=== PATIENT | female | born 1950 | race African-American/Black ===

== ENCOUNTER 2016-05-17 03:02 | Inpatient (IN) | payer MEDICAID, OTHER ==
[~2016-05-17] VITALS: Ht 170.2 cm; Wt 105.2 kg
[~2016-05-17 03:02] MED LIST: AMLODIPINE BESYL5 MG ORAL; ANTIVERT25 MG ORAL; ASPIR 8181 MG ORAL; GLUCOPHAGE500 MG ORAL; HYDRALAZINE HCL10 MG ORAL; HYDRALAZINE HCL25 M1 ORAL; LISINOPRIL20 MG ORAL; LISINOPRIL40 MG ORAL; LISINOPRIL5 MG ORAL; TENORMIN25 MG ORAL
--- NOTE | 2016-05-17 03:12 | Emergency Room Report ---
History of Present Illness General Chief Complaint: Abnormal Labs Source: Patient, Medical Record Present Illness HPI This is a 66-year-old female who presents with abnormal labs. Her INR was very high at 12.1 on routine blood check. Patient has no complaint. 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 She denies any bleeding. No bruising. No hematuria. He has no complaint. Allergies: Coded Allergies: NO KNOWN ALLERGIES (Unverified Allergy, Unknown, 03/07/15) Patient History Past Medical History: see triage record, old chart reviewed, HTN Past Surgical History: other Pertinent Family History: none Social History: Denies: smoking Now: No Immunizations: other Reviewed Nursing Documentation: PMH: Agreed, PSxH: Agreed Nursing Documentation-PMH Hx Cardiac Problems: Yes - HEART FAILURE,CARDIOMEGALY,ARRYTHMIA Hx Hypertension: Yes Hx Diabetes: Yes Hx Cancer: No Hx Neurological Problems: No Hx Cerebrovascular Accident: Yes - HEMIPLEGIA AND HEMIPARESIS Review of Systems Eye: Denies: blurred vision, eye pain ENT: Denies: ear pain, nose congestion, throat swelling Respiratory: Denies: cough, shortness of breath Cardiovascular: Denies: chest pain, palpitations Gastrointestinal: Denies: abdominal pain, diarrhea, nausea, vomiting Musculoskeletal: Denies: back pain, joint pain Skin: Denies: rash Neurological: Denies: headache, numbness Endocrine: Denies: increased thirst, increased urine Hematologic/Lymphatic: Denies: easy bruising All Other Systems: negative except mentioned in HPI Physical Exam Vital Signs Date Time Temp Pulse Resp B/P Pulse Ox O2 Delivery O2 Flow Rate FiO2 05/17/16 02:51 98.1 76 16 135/77 91 Room Air vitals normal Sp02 EP Interpretation: reviewed, abnormal General Appearance: well appearing, no apparent distress, alert Head: normocephalic, atraumatic Eyes: bilateral eye EOMI, bilateral eye PERRL ENT: hearing grossly normal, normal pharynx Neck: full range of motion, supple, no meningismus Respiratory: chest non-tender, lungs clear, normal breath sounds Cardiovascular #1: regular rate, rhythm, no murmur Gastrointestinal: normal bowel sounds, non tender, no mass, no organomegaly, no bruit, non-distended Musculoskeletal: back normal, gait/station normal, normal range of motion Psychiatric: mood/affect normal Skin: warm/dry Medical Decision Making Diagnostic Impression: Primary Impression: Abnormal laboratory test result Additional Impressions: 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 No active bleeding. A dose of vitamin K given. Lab Results Impression labs with elevated INR Rhythm Strip Diag. Results EP Interpretation: yes Rate: 80 Rhythm: NSR, no PVC's, no ectopy Chest X-Ray Diagnostic Results EP Interpretation: Yes Findings: no consolidation, no effusion, no pneumothorax, no acute cardiopulmonary disease, other - Cardiomegaly Number of Views: 1 Last Vital Signs Date Time Temp Pulse Resp B/P Pulse Ox O2 Delivery O2 Flow Rate FiO2 05/17/16 02:51 98.1 76 16 135/77 91 Room Air Status: unchanged Disposition: ADMITTED INPATIENT Condition: Serious ADONIS BOOKER M.D. May 17, 2016 03:12
[2016-05-17 03:50] LABS: BASOPHILS % (AUTO) 1.1 % (0.0-2.0); EOSINOPHILS % (AUTO) 0.5 % (0.0-3.0); LYMPHOCYTES % (AUTO) 9.9 % (20.0-45.0); MEAN CORPUSCULAR HEMOGLOBIN 26.6 PG (27.0-31.0); MEAN CORPUSCULAR VOLUME 83 FL (80-99); MEAN PLATELET VOLUME 7.5 FL (6.5-10.1); MONOCYTES % (AUTO) 11.3 % (1.0-10.0); NEUTROPHILS % (AUTO) 77.3 % (45.0-75.0); PLATELET COUNT 300 K/UL (150-450); RED BLOOD COUNT 3.37 M/UL (4.20-5.40); RED CELL DISTRIBUTION WIDTH 15.1 % (11.6-14.8); WHITE BLOOD COUNT 11.8 K/UL (4.8-10.8)
[2016-05-17 04:01] LABS: ANION GAP 13 (5-15); CALCIUM 8.4 mg/dL (8.6-10.2); CARBON DIOXIDE 32 mEQ/L (20-30); CHLORIDE 95 mEQ/L (98-107); CREATININE 0.7 mg/dL (0.5-0.9); GLOMERULAR FILTRATION RATE > 60 mL/min (>60); HEMOLYSIS 54; POTASSIUM 3.4 mEQ/L (3.4-4.9); SODIUM 140 mEQ/L (135-145)
[2016-05-17 04:04] LABS: PARTIAL THROMBOPLASTIN TIME 63 SEC (23-33)
[2016-05-17 04:08] VITALS: BP 130/77
[2016-05-17 04:13] LABS: INR > 15.0 (0.9-1.1); PROTHROMBIN TIME > 150.0 SEC (9.30-11.50)
[2016-05-17] MEDS ORDERED: Phytonadione 10 mg/mL 1ml amp SUBQ ONE (04:45)
[2016-05-17 06:21] VITALS: BP 144/62
[2016-05-17] MEDS ORDERED: HYDRALAZINE HCL10 MG ORAL (06:22)
[2016-05-17] MEDS ORDERED: TRAMADOL HCL50 MG ORAL (06:22)
[2016-05-17] MEDS ORDERED: GLUCAGON EMERGEN1 MG IJ (06:22)
[2016-05-17] MEDS ORDERED: LISINOPRIL20 MG ORAL (06:22)
[2016-05-17] MEDS ORDERED: FUROSEMIDE40 MG ORAL (06:22)
[2016-05-17] MEDS ORDERED: TYLENOL EXTRA500 MG ORAL (06:22)
[2016-05-17] MEDS ORDERED: LANTUS SOL100 UNIT/1 SUBQ (06:22)
[2016-05-17] MEDS ORDERED: LIPITOR40 MG ORAL (06:22)
[2016-05-17] MEDS ORDERED: HUMALOG100 UNIT/4 SUBQ (06:22)
[2016-05-17] MEDS ORDERED: CARVEDILOL25 MG ORAL (06:22)
[2016-05-17] MEDS ORDERED: MULTIVITAMINS1 EAC2 ORAL (06:22)
[2016-05-17] MEDS ORDERED: LORazepam Inj 2mg/ml 1ml IV PRN (07:00)
[2016-05-17] MEDS ORDERED: Mylanta II UD 30ml ORAL PRN (07:00)
[2016-05-17 07:15] VITALS: BP 147/62
[2016-05-17] MEDS: Furosemide 40mg tab ORAL SCH ×2 (09:44→19:16)
[2016-05-17] MEDS: Lisinopril 20mg tab ORAL SCH (09:44)
--- NOTE | 2016-05-17 11:19 | Diagnostic Imaging Report ---
Indication: SOB Technique: One view of the chest Comparison: 03/07/2015 Findings: The heart is enlarged, apparently more so than on the prior study. There is equivocal borderline interstitial congestive change, not evident previously. The pleural spaces are clear. No focal airspace disease Impression: Cardiomegaly, increased from 1220 1350 Equivocal mild interstitial congestion. Correlate with clinical findings
[2016-05-17 12:04] LABS: PROTHROMBIN TIME 73.9 SEC (9.30-11.50)
[2016-05-17 12:49] LABS: INR 6.8 (0.9-1.1)
[2016-05-17 13:08] LABS: ERYTHROCYTE SEDIMENTATION RATE 74 MM/HR (0-30); RETICULOCYTE COUNT 2.6 % (0.0-2.0)
[2016-05-17 13:11] LABS: ANISOCYTOSIS 1+; BAND NEUTROPHILS % (MANUAL) 0 % (0-8); BASOPHILS % (MANUAL) 0 % (0-2); EOSINOPHILS % (MANUAL) 1 % (0-3); HYPOCHROMASIA 1+; LYMPHOCYTES % (MANUAL) 9 % (20-45); NEUTROPHILS % (MANUAL) 78 % (45-75); NUCLEATED RED BLOOD CELLS 1 /100 WBC; PLATELET ESTIMATE ADEQUATE; PLATELET MORPHOLOGY NORMAL; TOTAL CELLS COUNTED 100
[2016-05-17 13:14] LABS: PATH BLOOD SMEAR/OMC SENT TO PATHOLOGIST
[2016-05-17] MEDS: NovoLOG Insulin Flexpen SUBQ SCH ×3 (13:20→22:39)
[2016-05-17] MEDS: HydrALAZINE 10mg Tab ORAL SCH ×2 (13:21→18:00)
[2016-05-17 13:30] VITALS: BP 132/61
[2016-05-17 16:49] VITALS: BP 102/48
--- NOTE | 2016-05-17 16:58 | Consultation ---
History of Present Illness General Date patient seen: May 17, 2016 Chief Complaint: Abnormal Labs Referring physician: Dr. Campos Reason for Consultation: Inpatient management Present Illness HPI 66-year-old female with Hx of CVA, DM, HTN, diabetic foot ulcer, on Coumadin for ventricular thrombus, brought in to ER for evaluation of INR> 10. Patient has no complaint. She has multple wounds on lower extremities which are getting worse. Allergies: Coded Allergies: NO KNOWN ALLERGIES (Unverified Allergy, Unknown, 03/07/15) Medication History Scheduled Amlodipine Besylate* (Amlodipine Besylate*), 5 MG ORAL DAILY Aspirin* (Aspir 81*), 81 MG ORAL DAILY, (Reported) Atorvastatin Calcium* (Lipitor*), 40 MG ORAL BEDTIME, (Reported) Carvedilol* (Carvedilol*), 50 MG ORAL EVERY 12 HOURS, (Reported) Furosemide* (Lasix*), 40 MG ORAL TWICE A DAY, (Reported) Hydralazine Hcl* (Hydralazine Hcl*), 10 MG ORAL EVERY 6 HOURS, (Reported) Insulin Glargine (Lantus), 20 SUBQ BEDTIME, (Reported) Lisinopril (Lisinopril*), 20 MG ORAL DAILY, (Reported) Lisinopril* (Lisinopril*), 40 MG ORAL DAILY Meclizine Hcl* (Antivert*), 50 MG ORAL BID Metformin Hcl* (Glucophage*), 500 MG ORAL BID Multivitamins* (Multivitamins*), 1 TAB ORAL DAILY, (Reported) Scheduled PRN Acetaminophen* (Tylenol Extra Strength*), 500 MG ORAL Q6H PRN for Mild Pain/ Temp > 100.5, (Reported) Hydralazine Hcl* (Hydralazine Hcl*), 25 MG ORAL BID PRN Tramadol Hcl* (Ultram*), 50 MG ORAL Q6H PRN for For Pain, (Reported) Miscellaneous Medications Glucagon,Human Recombinant (Glucagon Emergency Kit), 1 MG IJ, (Reported) Insulin Lispro (Humalog), 0 SUBQ, (Reported) Patient History Healthcare decision maker Resuscitation status Advanced Directive on File Past Medical/Surgical History Past Medical/Surgical History: (1) HTN (hypertension) (2) Anemia, chronic disease (3) DM (diabetes mellitus) Review of Systems All Other Systems: negative except mentioned in HPI Physical Exam General Appearance: WD/WN Lines, tubes and drains: peripheral HEENT: normocephalic, atraumatic Respiratory/Chest: chest wall non-tender, lungs clear Cardiovascular/Chest: normal peripheral pulses, normal rate Abdomen: normal bowel sounds Genitourinary/Rectal: normal genital exam Last 24 Hour Vital Signs Date Time Temp Pulse Resp B/P Pulse Ox O2 Delivery O2 Flow Rate FiO2 05/17/16 13:30 97.7 65 18 132/61 97 Room Air 05/17/16 13:21 132/61 05/17/16 09:58 66 14 156/80 100 Room Air 05/17/16 09:44 156/80 05/17/16 09:44 71 156/80 05/17/16 07:15 98.0 64 13 147/62 99 Room Air 05/17/16 07:15 64 13 Room Air 05/17/16 06:21 98.1 92 16 144/62 96 Room Air 05/17/16 04:08 98.1 88 16 130/77 91 Room Air 05/17/16 02:51 98.1 76 16 135/77 91 Room Air Intake and Output 05/16/16 05/17/16 19:00 07:00 Output Total 0 ml Balance 0 ml Output Urine Total 0 ml Laboratory Tests Test 05/17/16 03:35 05/17/16 11:00 White Blood Count 11.8 K/UL (4.8-10.8) H Red Blood Count 3.37 M/UL (4.20-5.40) L Hemoglobin 9.0 G/DL (12.0-16.0) L Hematocrit 28.0 % (37.0-47.0) L Mean Corpuscular Volume 83 FL (80-99) Mean Corpuscular Hemoglobin 26.6 PG (27.0-31.0) L Mean Corpuscular Hemoglobin Concent 32.0 G/DL (32.0-36.0) Red Cell Distribution Width 15.1 % (11.6-14.8) H Platelet Count 300 K/UL (150-450) Mean Platelet Volume 7.5 FL (6.5-10.1) Neutrophils (%) (Auto) 77.3 % (45.0-75.0) H Lymphocytes (%) (Auto) 9.9 % (20.0-45.0) L Monocytes (%) (Auto) 11.3 % (1.0-10.0) H Eosinophils (%) (Auto) 0.5 % (0.0-3.0) Basophils (%) (Auto) 1.1 % (0.0-2.0) Differential Total Cells Counted 100 Neutrophils % (Manual) 78 % (45-75) H Lymphocytes % (Manual) 9 % (20-45) L Monocytes % (Manual) 12 % (1-10) H Eosinophils % (Manual) 1 % (0-3) Basophils % (Manual) 0 % (0-2) Band Neutrophils 0 % (0-8) Nucleated Red Blood Cells 1 /100 WBC Platelet Estimate Adequate Platelet Morphology Normal Hypochromasia 1+ Anisocytosis 1+ Prothrombin Time > 150.0 SEC (9.30-11.50) H 73.9 SEC (9.30-11.50) H Prothromb Time International Ratio > 15.0 (0.9-1.1) *H 6.8 (0.9-1.1) *H Activated Partial Thromboplast Time 63 SEC (23-33) H 60 SEC (23-33) H Sodium Level 140 mEQ/L (135-145) Potassium Level 3.4 mEQ/L (3.4-4.9) Chloride Level 95 mEQ/L (98-107) L Carbon Dioxide Level 32 mEQ/L (20-30) H Anion Gap 13 (5-15) Blood Urea Nitrogen 17 mg/dL (7-23) Creatinine 0.7 mg/dL (0.5-0.9) Estimat Glomerular Filtration Rate > 60 mL/min (>60) Glucose Level 165 mg/dL (74-106) H Calcium Level 8.4 mg/dL (8.6-10.2) L Erythrocyte Sedimentation Rate 74 MM/HR (0-30) H Reticulocyte Count 2.6 % (0.0-2.0) H Iron Level 30 ug/dL (37-145) L Total Iron Binding Capacity 225 ug/dL (250-400) L Percent Iron Saturation 13 % (15-50) L Unsaturated Iron Binding 195 ug/dL (112-346) Lactate Dehydrogenase 248 U/L (135-230) H Carcinoembryonic Antigen 1.9 ng/mL Vitamin B12 Level 251 pg/mL (211-946) Folate Pending Height (Feet): 5 Height (Inches): 7.00 Weight (Pounds): 230 Medications Current Medications Medications (Trade) Dose Ordered Sig/Anh Route PRN Reason Start Time Stop Time Status Last Admin Dose Admin Acetaminophen (Tylenol) 650 mg Q4H PRN ORAL T>100.5 05/17/16 07:00 06/16/16 06:59 Al Hydroxide/Mg Hydroxide (Mylanta II) 30 ml Q6H PRN ORAL dyspepsia 05/17/16 07:00 06/16/16 06:59 Amlodipine Besylate (Norvasc) 5 mg DAILY ORAL 05/17/16 09:00 06/16/16 08:59 05/17/16 09:44 Atorvastatin Calcium (Lipitor) 40 mg BEDTIME ORAL 05/17/16 21:00 06/16/16 20:59 Carvedilol (Coreg) 50 mg EVERY 12 HOURS ORAL 05/17/16 09:00 06/16/16 08:59 UNV Dextrose (Dextrose 50%) STAT PRN IV Hypoglycemia 05/17/16 07:00 06/16/16 06:59 Furosemide (Lasix) 40 mg TWICE A DAY ORAL 05/17/16 09:00 06/16/16 08:59 05/17/16 09:44 Hydralazine HCl (Apresoline) 10 mg EVERY 6 HOURS ORAL 05/17/16 12:00 06/16/16 11:59 05/17/16 13:21 Insulin Aspart (NovoLOG) BEFORE MEALS AND HS SUBQ 05/17/16 11:30 06/16/16 11:29 05/17/16 13:20 Lisinopril (Prinivil) 20 mg DAILY ORAL 05/17/16 09:00 06/16/16 08:59 05/17/16 09:44 Lorazepam (Ativan 2mg/ml 1ml) 0.5 mg Q4H PRN IV For Anxiety 05/17/16 07:00 05/24/16 06:59 Morphine Sulfate (Morphine Sulfate) 1 mg Q4H PRN IVP PAIN 4-10 05/17/16 07:00 05/24/16 06:59 Ondansetron HCl (Zofran) 4 mg Q6H PRN IVP Nausea & Vomiting 05/17/16 07:00 06/16/16 06:59 Polyethylene Glycol (Miralax) 17 gm HSPRN PRN ORAL Constipation 05/17/16 21:00 06/16/16 20:59 Zolpidem Tartrate (Ambien) 5 mg HSPRN PRN ORAL Insomnia 05/17/16 21:00 06/16/16 20:59 Assessment/Plan Problem List: (1) Coagulopathy ICD Codes: D68.9 - Coagulation defect, unspecified SNOMED: 91595199 (2) Diabetic foot ulcer ICD Codes: E11.621 - Type 2 diabetes mellitus with foot ulcer; L97.509 - Non- pressure chronic ulcer of other part of unspecified foot with unspecified severity SNOMED: 019934940 (3) Ventricular mural thrombus SNOMED: 33366296 (4) HTN (hypertension) ICD Codes: I10 - Essential (primary) hypertension SNOMED: 11939399 (5) DM (diabetes mellitus) ICD Codes: E11.9 - Type 2 diabetes mellitus without complications SNOMED: 44028844 (6) Anemia, chronic disease ICD Codes: D63.8 - Anemia in other chronic diseases classified elsewhere; T45.515A - Adverse effect of anticoagulants, initial encounter SNOMED: 275400977, 806199098 Assessment/Plan Vitamin K+ FFP check INR wound care podiatry sliding scale diabetic diet check cultures AMARIS POWERS May 17, 2016 16:58
[2016-05-17 20:00] VITALS: BP 135/70
[2016-05-17] MEDS ORDERED: Zolpidem 5mg tab ORAL PRN (21:00)
[2016-05-17] MEDS ORDERED: Miralax 17gm pkt ORAL PRN (21:00)
[2016-05-17] MEDS: Carvedilol 25mg Tab ORAL SCH (22:38)
--- NOTE | 2016-05-17 22:51 | General Progress Note ---
Assessment/Plan Assessment/Plan GI Consult Dictated EGD/Colon Monday am, if sable and INR corrected Thank you Rolando Lane MD Subjective Allergies: Coded Allergies: NO KNOWN ALLERGIES (Unverified Allergy, Unknown, 03/07/15) Objective Last 24 Hour Vital Signs Date Time Temp Pulse Resp B/P Pulse Ox O2 Delivery O2 Flow Rate FiO2 05/17/16 22:38 77 135/70 05/17/16 18:00 102/48 05/17/16 16:49 98.1 81 102/48 95 Room Air 05/17/16 13:30 97.7 65 18 132/61 97 Room Air 05/17/16 13:21 132/61 05/17/16 09:58 66 14 156/80 100 Room Air 05/17/16 09:44 156/80 05/17/16 09:44 71 156/80 05/17/16 07:15 98.0 64 13 147/62 99 Room Air 05/17/16 07:15 64 13 Room Air 05/17/16 06:21 98.1 92 16 144/62 96 Room Air 05/17/16 04:08 98.1 88 16 130/77 91 Room Air 05/17/16 02:51 98.1 76 16 135/77 91 Room Air Intake and Output 05/16/16 05/17/16 19:00 07:00 Output Total 0 ml Balance 0 ml Output Urine Total 0 ml Laboratory Tests 05/17/16 03:35: White Blood Count 11.8H, Red Blood Count 3.37L, Hemoglobin 9.0L, Hematocrit 28.0L, Mean Corpuscular Volume 83, Mean Corpuscular Hemoglobin 26.6L, Mean Corpuscular Hemoglobin Concent 32.0, Red Cell Distribution Width 15.1H, Platelet Count 300, Mean Platelet Volume 7.5, Neutrophils (%) (Auto) 77.3H, Lymphocytes (%) (Auto) 9.9L, Monocytes (%) (Auto) 11.3H, Eosinophils (%) (Auto) 0.5, Basophils (%) (Auto) 1.1, Differential Total Cells Counted 100, Neutrophils % (Manual) 78H, Lymphocytes % (Manual) 9L, Monocytes % (Manual) 12H , Eosinophils % (Manual) 1, Basophils % (Manual) 0, Band Neutrophils 0, Nucleated Red Blood Cells 1, Platelet Estimate Adequate, Platelet Morphology Normal, Hypochromasia 1+, Anisocytosis 1+, Prothrombin Time > 150.0H, Prothromb Time International Ratio > 15.0*H, Activated Partial Thromboplast Time 63H, Sodium Level 140, Potassium Level 3.4, Chloride Level 95L, Carbon Dioxide Level 32H, Anion Gap 13, Blood Urea Nitrogen 17, Creatinine 0.7, Estimat Glomerular Filtration Rate > 60, Glucose Level 165H, Calcium Level 8.4L 05/17/16 11:00: Prothrombin Time 73.9H, Prothromb Time International Ratio 6.8*H, Activated Partial Thromboplast Time 60H, Erythrocyte Sedimentation Rate 74H, Reticulocyte Count 2.6H, Iron Level 30L, Total Iron Binding Capacity 225L, Percent Iron Saturation 13L, Unsaturated Iron Binding 195, Lactate Dehydrogenase 248H, Carcinoembryonic Antigen 1.9, Vitamin B12 Level 251, Folate [Pending] Height (Feet): 5 Height (Inches): 7.00 Weight (Pounds): [address] May 17, 2016 22:51
[2016-05-17] MEDS: Sorbitol Solution UD 30ml ORAL ONE (23:00)
--- NOTE | 2016-05-17 23:18 | History and Physical Report ---
DATE OF ADMISSION: 05/17/2016 HISTORY OF PRESENT ILLNESS: The patient is admitted for elevated INR. Vitamin K was given. The patient was on Coumadin. We will reverse the INR and we will send the patient back to the facility. Had no complaint. No bleeding and no bruising and no hematuria. No bleeding whatsoever. PAST MEDICAL HISTORY: Significant for hypertension, heart failure, cardiomegaly, arrhythmia, diabetes, degenerative joint disease, history of ventricular tachycardia, on Coumadin, and history of anemia on chronic disease. PAST SURGICAL HISTORY: Denies. ALLERGIES: Denies. MEDICATIONS: 1. NovoLog. 2. Aspirin. 3. Lipitor. 4. Coreg. 5. Furosemide. 6. Hydralazine. 7. Insulin. 8. Lisinopril. 9. Metformin. 10. . 11. Coumadin. FAMILY HISTORY: Noncontributory. SOCIAL HISTORY: Denies alcohol or drugs. REVIEW OF SYSTEMS: HEENT: Denies headache. Respiratory: Denies shortness of breath. Denies cough. Cardiovascular: Denies chest pain. Gastrointestinal: Denies any rectal bleeding. Denies bruising. Denies any significant pain. PHYSICAL EXAMINATION: VITAL SIGNS: Temperature is 97 degrees, pulse is 73, and blood pressure 135/77. HEENT: PERRLA. NECK: Supple. No lymphadenopathy. CHEST: Clear to auscultation. GASTROINTESTINAL: Soft, nontender, and nondistended. No organomegaly. EXTREMITIES: No edema. No ecchymosis. No bleeding. Reflexes are equal on both sides. Able to move all four extremities. LABORATORY DATA: White blood cells of 11.8, hemoglobin of 9 and platelets 300,000. Sodium 140, potassium 3.5, BUN of 17, creatinine 0.7 and glucose of 167. INR greater than 15. PT PTT 63. ASSESSMENT AND PLAN: Coagulopathy, on Coumadin. No bleeding or bruises. The patient did not have any adverse effects at this point. I have consulted Dr. Sosa and Dr. Fuentes and Dr. Lane for the above-mentioned diagnosis and treatment. Vitamin K was given already to reverse the coagulopathy and further medication will be ordered. Ali Hadadz, M.D. DR: FRED JOB#: [id number] CC:
[2016-05-18] VITALS: BP 139/52
[2016-05-18] MEDS: Sorbitol Solution UD 30ml ORAL ONE (01:22)
[2016-05-18] MEDS: HydrALAZINE 10mg Tab ORAL SCH ×5 (01:22→19:02)
[2016-05-18 04:00] VITALS: BP 128/55
[2016-05-18 04:19] LABS: EOSINOPHILS % (AUTO) 1.2 % (0.0-3.0); LYMPHOCYTES % (AUTO) 11.4 % (20.0-45.0); MEAN CORPUSCULAR HEMOGLOBIN 26.8 PG (27.0-31.0); MEAN CORPUSCULAR HGB CONC 31.7 G/DL (32.0-36.0); MEAN CORPUSCULAR VOLUME 84 FL (80-99); MEAN PLATELET VOLUME 6.7 FL (6.5-10.1); MONOCYTES % (AUTO) 8.9 % (1.0-10.0); NEUTROPHILS % (AUTO) 77.6 % (45.0-75.0); PLATELET COUNT 318 K/UL (150-450); RED BLOOD COUNT 3.24 M/UL (4.20-5.40); RED CELL DISTRIBUTION WIDTH 14.8 % (11.6-14.8); WHITE BLOOD COUNT 12.8 K/UL (4.8-10.8)
[2016-05-18 04:28] LABS: INR 2.2 (0.9-1.1)
[2016-05-18] MEDS: NovoLOG Insulin Flexpen SUBQ SCH ×4 (06:30→21:56)
[2016-05-18 07:13] LABS: ALANINE AMINOTRANSFERASE 16 U/L (3-33); ALBUMIN/GLOBULIN RATIO 0.5 (1.0-2.7); ANION GAP 9 (5-15); ASPARTATE AMINO TRANSFERASE 27 U/L (5-40); CALCIUM 8.7 mg/dL (8.6-10.2); CARBON DIOXIDE 36 mEQ/L (20-30); CHLORIDE 95 mEQ/L (98-107); CREATININE 0.7 mg/dL (0.5-0.9); GLOMERULAR FILTRATION RATE > 60 mL/min (>60); HEMOLYSIS 1; POTASSIUM 2.8 mEQ/L (3.4-4.9); SODIUM 140 mEQ/L (135-145); TOTAL PROTEIN 6.1 g/dL (6.6-8.7)
[2016-05-18 07:26] LABS: BILIRUBIN,DIRECT 0.6 mg/dL (0.1-0.3)
[2016-05-18] MEDS ORDERED: Bisacodyl EC 5mg tab ORAL ONE ×2 (07:45→16:00)
[2016-05-18 08:00] VITALS: BP 147/69
[2016-05-18] MEDS ORDERED: Nulytely 4L ORAL ONE (09:00)
--- NOTE | 2016-05-18 09:40 | Diagnostic Imaging Report ---
APPROVED REPORT CPT Code: 29524 Present Symptoms Comments: Pain Technically difficult study due to vessel depth (mid-thigh) and calf area ( bandages at distal calf). BILATERAL: Imaging reveals a patent deep venous system bilaterally. There is no evidence of thrombus within the femoral, popliteal or tibial segments. The greater saphenous veins are also within normal limits. Doppler indicates normal spontaneous flow within these segments. Note: Technically difficult study due to vessel depth (mid-thigh and calf area).
[2016-05-18] MEDS: Carvedilol 25mg Tab ORAL SCH ×2 (09:47→21:23)
[2016-05-18] MEDS: Lisinopril 20mg tab ORAL SCH (09:50)
--- NOTE | 2016-05-18 10:24 | General Progress Note ---
Assessment/Plan Problem List: (1) Dizziness ICD Codes: R42 - Dizziness and giddiness SNOMED: 083603808 (2) HTN (hypertension) ICD Codes: I10 - Essential (primary) hypertension SNOMED: 55373345 (3) DM (diabetes mellitus) ICD Codes: E11.9 - Type 2 diabetes mellitus without complications SNOMED: 04207096 (4) Anemia, chronic disease ICD Codes: D63.8 - Anemia in other chronic diseases classified elsewhere; T45.515A - Adverse effect of anticoagulants, initial encounter SNOMED: 030134633, 118148982 (5) Coagulopathy ICD Codes: D68.9 - Coagulation defect, unspecified SNOMED: 95384904 (6) V-tach ICD Codes: I47.2 - Ventricular tachycardia SNOMED: 48064181 (7) Ventricular mural thrombus SNOMED: 72582256 Status: progressing Assessment/Plan coagulapathy afebrile vitals stable will discuss w gi the plan on care and w podiatry and hem/onc coumadin per heme/onc Subjective ROS Limited/Unobtainable: Yes Constitutional: Reports: no symptoms Allergies: Coded Allergies: NO KNOWN ALLERGIES (Unverified Allergy, Unknown, 03/07/15) Objective Last 24 Hour Vital Signs Date Time Temp Pulse Resp B/P Pulse Ox O2 Delivery O2 Flow Rate FiO2 05/18/16 09:50 140/77 05/18/16 09:49 64 140/77 05/18/16 09:47 64 140/77 05/18/16 08:00 97.5 66 20 147/69 95 Room Air 05/18/16 06:00 139/52 05/18/16 04:00 97.9 60 18 128/55 98 Room Air 05/18/16 00:00 98.1 66 20 139/52 97 Room Air 05/18/16 00:00 139/52 05/17/16 22:38 77 135/70 05/17/16 20:00 98.1 72 18 135/70 92 Room Air 05/17/16 18:00 102/48 05/17/16 16:49 98.1 81 102/48 95 Room Air 05/17/16 13:30 97.7 65 18 132/61 97 Room Air 05/17/16 13:21 132/61 Intake and Output 05/17/16 05/18/16 19:00 07:00 Intake Total 480 ml 240 ml Balance 480 ml 240 ml Intake Oral 480 ml 240 ml # Voids 2 1 Laboratory Tests 05/17/16 11:00: Erythrocyte Sedimentation Rate 74H, Reticulocyte Count 2.6H, Prothrombin Time 73.9H, Prothromb Time International Ratio 6.8*H, Activated Partial Thromboplast Time 60H, Iron Level 30L, Total Iron Binding Capacity 225L, Percent Iron Saturation 13L, Unsaturated Iron Binding 195, Lactate Dehydrogenase 248H, Carcinoembryonic Antigen 1.9, Vitamin B12 Level 251, Folate [Pending] 05/18/16 04:00: Prothrombin Time 23.0H, Prothromb Time International Ratio 2.2H, White Blood Count 12.8H, Red Blood Count 3.24L, Hemoglobin 8.7L, Hematocrit 27.3L, Mean Corpuscular Volume 84, Mean Corpuscular Hemoglobin 26.8L, Mean Corpuscular Hemoglobin Concent 31.7L, Red Cell Distribution Width 14.8, Platelet Count 318, Mean Platelet Volume 6.7, Neutrophils (%) (Auto) 77.6H, Lymphocytes (%) (Auto) 11.4L, Monocytes (%) (Auto) 8.9, Eosinophils (%) (Auto) 1.2, Basophils (%) (Auto ) 1.0, Sodium Level 140, Potassium Level 2.8L, Chloride Level 95L, Carbon Dioxide Level 36H, Anion Gap 9, Blood Urea Nitrogen 17, Creatinine 0.7, Estimat Glomerular Filtration Rate > 60, Glucose Level 144H, Calcium Level 8.7, Total Bilirubin 1.5H, Direct Bilirubin 0.6H, Aspartate Amino Transf (AST/SGOT) 27, Alanine Aminotransferase (ALT/SGPT) 16, Alkaline Phosphatase 114H, Total Protein 6.1L, Albumin 2.2L, Globulin 3.9, Albumin/Globulin Ratio 0.5L, Thyroid Stimulating Hormone (TSH) 1.670 Height (Feet): 5 Height (Inches): 7.00 Weight (Pounds): 230 General Appearance: confused EENT: PERRL/EOMI Neck: supple Cardiovascular: normal rate Respiratory/Chest: lungs clear Abdomen: soft Brittny Campos MD May 18, 2016 10:24
[2016-05-18 12:00] VITALS: BP_SYST 135; BP_SYST 89; BP_DIAS 54; BP_DIAS 92
[2016-05-18] MEDS ORDERED: Fleet's Enema 133ml RECTAL ONE (14:00)
[2016-05-18] MEDS: Furosemide 40mg tab ORAL SCH ×2 (14:08→19:02)
[2016-05-18] MEDS: Morphine Sulfate 2mg/ml Inj IVP PRN ×2 (14:25→21:22)
--- NOTE | 2016-05-18 15:00 | Infectious Diseases Prog Note ---
Assessment/Plan Problems: (1) Toe gangrene Assessment & Plan: will send blood culture to rule out bacteremia, and start vancomycin, cefepime and flagyl empirically, recommend financial analysis consultant eval for possible amputation. (2) Open wound of both legs with complication Assessment & Plan: continue local wound care as per wound care service, and off loading , she will be started on wide spectrum antibiotics (3) Sepsis Assessment & Plan: due to the above, will start vancomycin, cefepime and metronidazol, and send blood culture (4) Coagulopathy Assessment & Plan: due to comuadin, improving, monitor INR (5) DM (diabetes mellitus) Assessment & Plan: recommend tight glycemic control to keep blood glucose between 80-120 Subjective Allergies: Coded Allergies: NO KNOWN ALLERGIES (Unverified Allergy, Unknown, 03/07/15) Objective Vital Signs Last 24 Hour Vital Signs Date Time Temp Pulse Resp B/P Pulse Ox O2 Delivery O2 Flow Rate FiO2 05/18/16 12:29 135/92 05/18/16 12:00 97.6 66 18 135/92 93 Room Air 05/18/16 09:50 140/77 05/18/16 09:49 64 140/77 05/18/16 09:47 64 140/77 05/18/16 08:00 97.5 66 20 147/69 95 Room Air 05/18/16 06:00 139/52 05/18/16 04:00 97.9 60 18 128/55 98 Room Air 05/18/16 00:00 98.1 66 20 139/52 97 Room Air 05/18/16 00:00 139/52 05/17/16 22:38 77 135/70 05/17/16 20:00 98.1 72 18 135/70 92 Room Air 05/17/16 18:00 102/48 05/17/16 16:49 98.1 81 102/48 95 Room Air Height (Feet): 5 Height (Inches): 7.00 Weight (Pounds): 230 Laboratory Tests Test 05/18/16 04:00 White Blood Count 12.8 K/UL (4.8-10.8) H Red Blood Count 3.24 M/UL (4.20-5.40) L Hemoglobin 8.7 G/DL (12.0-16.0) L Hematocrit 27.3 % (37.0-47.0) L Mean Corpuscular Volume 84 FL (80-99) Mean Corpuscular Hemoglobin 26.8 PG (27.0-31.0) L Mean Corpuscular Hemoglobin Concent 31.7 G/DL (32.0-36.0) L Red Cell Distribution Width 14.8 % (11.6-14.8) Platelet Count 318 K/UL (150-450) Mean Platelet Volume 6.7 FL (6.5-10.1) Neutrophils (%) (Auto) 77.6 % (45.0-75.0) H Lymphocytes (%) (Auto) 11.4 % (20.0-45.0) L Monocytes (%) (Auto) 8.9 % (1.0-10.0) Eosinophils (%) (Auto) 1.2 % (0.0-3.0) Basophils (%) (Auto) 1.0 % (0.0-2.0) Prothrombin Time 23.0 SEC (9.30-11.50) H Prothromb Time International Ratio 2.2 (0.9-1.1) H Sodium Level 140 mEQ/L (135-145) Potassium Level 2.8 mEQ/L (3.4-4.9) L Chloride Level 95 mEQ/L (98-107) L Carbon Dioxide Level 36 mEQ/L (20-30) H Anion Gap 9 (5-15) Blood Urea Nitrogen 17 mg/dL (7-23) Creatinine 0.7 mg/dL (0.5-0.9) Estimat Glomerular Filtration Rate > 60 mL/min (>60) Glucose Level 144 mg/dL (74-106) H Calcium Level 8.7 mg/dL (8.6-10.2) Total Bilirubin 1.5 mg/dL (0.0-1.2) H Direct Bilirubin 0.6 mg/dL (0.1-0.3) H Aspartate Amino Transf (AST/SGOT) 27 U/L (5-40) Alanine Aminotransferase (ALT/SGPT) 16 U/L (3-33) Alkaline Phosphatase 114 U/L (35-104) H Total Protein 6.1 g/dL (6.6-8.7) L Albumin 2.2 g/dL (3.5-5.2) L Globulin 3.9 g/dL Albumin/Globulin Ratio 0.5 (1.0-2.7) L Thyroid Stimulating Hormone (TSH) 1.670 uIU/mL (0.300-4.500) Current Medications Medications (Trade) Dose Ordered Sig/Anh Route PRN Reason Start Time Stop Time Status Last Admin Dose Admin Acetaminophen (Tylenol) 650 mg Q4H PRN ORAL T>100.5 05/17/16 07:00 06/16/16 06:59 Al Hydroxide/Mg Hydroxide (Mylanta II) 30 ml Q6H PRN ORAL dyspepsia 05/17/16 07:00 06/16/16 06:59 Amlodipine Besylate (Norvasc) 5 mg DAILY ORAL 05/17/16 09:00 06/16/16 08:59 05/18/16 09:49 Atorvastatin Calcium (Lipitor) 40 mg BEDTIME ORAL 05/17/16 21:00 06/16/16 20:59 05/17/16 22:35 Bisacodyl (Dulcolax) 20 mg ONCE ONCE ORAL 05/18/16 16:00 05/18/16 16:01 Carvedilol (Coreg) 50 mg EVERY 12 HOURS ORAL 05/17/16 21:00 06/16/16 20:59 05/18/16 09:47 Cefepime HCl/ Dextrose (Maxipime/D5W) 55 ml @ 110 mls/hr EVERY 12 HOURS IVPB 05/18/16 18:00 05/25/16 17:59 Dextrose (Dextrose 50%) STAT PRN IV Hypoglycemia 05/17/16 07:00 06/16/16 06:59 Furosemide (Lasix) 40 mg TWICE A DAY ORAL 05/17/16 09:00 06/16/16 08:59 05/18/16 14:08 Hydralazine HCl (Apresoline) 10 mg EVERY 6 HOURS ORAL 05/17/16 12:00 06/16/16 11:59 05/18/16 12:29 Insulin Aspart (NovoLOG) BEFORE MEALS AND HS SUBQ 05/17/16 11:30 06/16/16 11:29 05/18/16 12:26 Lisinopril (Prinivil) 20 mg DAILY ORAL 05/17/16 09:00 06/16/16 08:59 05/18/16 09:50 Lorazepam (Ativan 2mg/ml 1ml) 0.5 mg Q4H PRN IV For Anxiety 05/17/16 07:00 05/24/16 06:59 Metronidazole (Flagyl) 500 mg Q8HR ORAL 05/18/16 19:00 05/25/16 18:59 Morphine Sulfate (Morphine Sulfate) 1 mg Q4H PRN IVP PAIN 4-10 05/17/16 07:00 05/24/16 06:59 05/18/16 14:25 Ondansetron HCl (Zofran) 4 mg Q6H PRN IVP Nausea & Vomiting 05/17/16 07:00 06/16/16 06:59 Polyethylene Glycol (Miralax) 17 gm HSPRN PRN ORAL Constipation 05/17/16 21:00 06/16/16 20:59 Potassium Chloride 20 meq 20 meq ONCE ONCE ORAL 05/18/16 20:00 05/18/16 20:01 Vancomycin HCl 1 ea 1 ea DAILY PRN MISC . 05/18/16 14:30 06/17/16 14:29 Vancomycin HCl 1 gm/Dextrose 275 ml @ 183.708 mls/hr Q12HR IVPB 05/18/16 14:30 05/23/16 14:29 UNV Vancomycin HCl/ Dextrose (Vancomycin/D5W 500ml) 550 ml @ 275 mls/hr ONCE ONCE IVPB 05/18/16 16:00 05/18/16 17:59 Zolpidem Tartrate (Ambien) 5 mg HSPRN PRN ORAL Insomnia 05/17/16 21:00 06/16/16 20:59 Anju Judd M.D. May 18, 2016 15:00
--- NOTE | 2016-05-18 15:14 | Cardiology Report ---
APPROVED REPORT EXAM: Two-dimensional and M-mode echocardiogram with Doppler and color Doppler. INDICATION Congestive Heart Failure M-Mode DIMENSIONS IVSd1.2 (0.7-1.1cm)Left Atrium (MM)4.5 (1.6-4.0cm) LVDd5.5 (3.5-5.6cm)Aortic Root3.4 (2.0-3.7cm) PWd1.1 (0.7-1.1cm)Aortic Cusp Exc.1.8 (1.5-2.0cm) LVDs4.0 (2.5-4.0cm) PWs1.5 cm Technically difficult study due to poor acoustical windows. Normal left ventricular chamber size. Septal hypokinesis. Left ventricular ejection fraction estimated to be 40-45 %. Mild left ventricular hypertrophy. No evidence of pericardial effusion. Mild left atrial enlargement. Right cardiac chamber sizes are within normal limits. Focal aortic valve sclerosis with adequate cusp excursion. Thickened mitral valve leaflets with normal excursion. Mitral annulus and aortic root calcification. Pulmonic valve not well visualized. Normal tricuspid valve structure. IVC dilated at 2.1 cm without physiologic collapse suggestive of increased RA pressure. A color flow and spectral Doppler study was performed and revealed: Trace aortic regurgitation. Moderate mitral regurgitation. Mitral inflow velocities indicates possible pseudo normalization pattern implying moderately elevated left atrial pressure (Grade II ). Moderate tricuspid regurgitation. Tricuspid systolic velocities suggests peak right ventricular systolic pressure of 64 mmHg, consistent with severe pulmonary hypertension.
[2016-05-18] MEDS ORDERED: Vancomycin 2gm/D5W 550ml IVPB ONE ×2 (16:00)
[2016-05-18 16:02] VITALS: BP 144/67
--- NOTE | 2016-05-18 16:08 | Consultation ---
DATE OF CONSULTATION: 05/17/2016 CONSULTING PHYSICIAN: Lazarus Jean-Baptiste M.D. REFERRING PHYSICIAN: Brittny Campos M.D. REASON FOR CONSULTATION: Evaluation of supratherapeutic INR. IDENTIFYING DATA: Dear Dr. Campos, The patient is a pleasant 66-year-old female with past medical history significant for intracardiac thrombosis, was on Coumad[place] at a [place] [facility]. She was noted to have an INR that was 4.1 on routine blood check without any bleeding at this time. She presented to the hospital after being transported here for supratherapeutic INR. Hematology Service was consulted after vitamin K was administered for further evaluation and care. Several labs were ordered by other physicians and duplex of lower extremities at this time is pending. PAST MEDICAL HISTORY: Hypertension. PAST SURGICAL HISTORY: None noted. FAMILY HISTORY: Noncontributory. SOCIAL HISTORY: No alcohol, tobacco, or illicit drug use. REVIEW OF SYSTEMS: Constitutional: No fever, chills, or night sweats. Skin: No rashes, lumps, or itching. HEENT: No headache, hearing, or vision changes. Breasts: No lumps, pain, or discharge. Pulmonary: No cough, sputum, or shortness of breath. Cardiovascular: No chest pain, tightness, or palpitations. Gastrointestinal: No nausea, vomiting, or diarrhea. Genitourinary: No dysuria, frequency, or urgency. Musculoskeletal: No joint swelling, muscle pain, or trauma. Neurologic: No dizziness, fainting, or seizures. PHYSICAL EXAMINATION: GENERAL: The patient is in no acute distress. VITAL SIGNS: Temperature 98 degrees Fahrenheit, pulse is 64, respiratory rate 12, blood pressure 156/80, and pulse oximetry 100% on room air. PULMONARY: Decreased breath sounds. CARDIOVASCULAR: Regular rate and rhythm. No S3 or S4. ABDOMEN: Soft, nontender, and nondistended. EXTREMITIES: A 1+ edema. LABORATORY AND DIAGNOSTIC DATA: WBC 11.8, hemoglobin 9, hematocrit 28, and platelet count 300,000. MEDICATIONS: Currently Lipitor, zolpidem, insulin, hydralazine, Lasix. ASSESSMENT: 1. Supratherapeutic INR likely secondary to Coumadin overdose. The patient currently received vitamin K. We will recheck INR later this afternoon. 2. Intracardiac thrombosis. 3. Anemia. 4. Chronic disease. 5. Decreased hemoglobin and hematocrit, rule out other component. 6. Leukocytosis and neutrophilia, rule out infection. 7. Hypertension. 8. Cardiomegaly. 9. History of congestive heart failure. PLAN: 1. Monitor counts. 2. Vitamin K administered. 3. Monitor prothrombin time and INR. 4. The patient is currently without bleeding. 5. The patient without any intracranial bleeds . 6. Hold Coumadin. 7. Recheck Coumadin once INR less than 3. 8. I will appreciate Pulmonary Critical Care and Nephrology recommendations. 9. Duplex of lower extremities is ordered. 10. pending. Thank you, Dr. Campos, for this kind referral. Please do not hesitate to contact me if you have any further questions. Lazarus Jean-Baptiste M.D. DR: BRADLEY JOB#: [id number] CC:
--- NOTE | 2016-05-18 16:18 | Consultation ---
DATE OF CONSULTATION: 05/17/2016 [facility] CON[facility]ATION: CONSULTING PHYSICIAN: Rolando Lane M.D. CHIEF COMPLAINT: I was asked to see this patient by Dr. Brittny Campos today for evaluation of anemia. HISTORY OF PRESENT ILLNESS: The patient is a 66-year-old woman, who was brought into the hospital due to high INR levels. She was given a reversal for her anticoagulation. She has had no overt evidence of gastrointestinal bleeding. The patient does not have any abdominal pain, nausea, vomiting, diarrhea, constipation, or hematochezia. She has not had a colonoscopy for at least 10 years and she is interested in having one. The patient states that she has had a blood clot in the heart and that is why she has to be on long-term anticoagulation. PAST MEDICAL HISTORY: Remarkable for history of insulin-dependent diabetes mellitus, hypercholesterolemia, hypertension, arrhythmias, cardiomegaly, degenerative joint disease, history of ventricular tachycardia, and history of anemia. FAMILY HISTORY: Noncontributory. SOCIAL HISTORY: The patient has had no history of drug, smoking, or alcohol. REVIEW OF SYSTEMS: Otherwise negative. PHYSICAL EXAMINATION: GENERAL: This is a pleasant woman, who is seen with her mother and daughter at bedside. HEENT: Normocephalic and atraumatic. Sclerae anicteric. Oropharynx clear. NECK: Supple. CHEST: Clear to auscultation. CARDIOVASCULAR: Revealed a regular rate. ABDOMEN: Soft, flat. Good bowel sounds. EXTREMITIES: Revealed bilateral lower extremity damages. NEUROLOGIC: Grossly nonfocal. LABORATORY DATA: Noted. ASSESSMENT: This patient presents with high INR level, which was corrected appropriately. She has no overt evidence of excessive bleeding, but she does have a significant degree of anemia. She has not had a colonoscopy for 10 years and she wants to have one. We will take the opportunity to do one since her anticoagulation has been reversed at this time. This will also give her condition some degree of assurance for long-term anticoagulation would not result in worsening anemia. The indications, risks, alternatives, and possible complications of endoscopy and colonoscopy was explained to the patient and her family and they all agreed to proceed. The patient's INRs will be followed for now and once corrected, the endoscopy and colonoscopy can be scheduled if cleared by other consultants on the case. RECOMMENDATIONS: 1. Clear liquid diet. 2. Gastrointestinal tract preparation. 3. Check stool occult blood. 4. Endoscopy and colonoscopy once stabilized. 5. Reverse anticoagulation. Thank you for asking me to participate in the care of this patient. Rolando Lane M.D. DR: ANTONIA JOB#: [id number] CC:
--- NOTE | 2016-05-18 17:33 | Pulmonology Progress Note ---
Assessment/Plan Problems: (1) Coagulopathy (2) Diabetic foot ulcer (3) Ventricular mural thrombus (4) HTN (hypertension) (5) DM (diabetes mellitus) (6) Anemia, chronic disease Assessment/Plan f/u pt/ptt s/p FFP and Vitamin K f/u H/H GI evaluation podiatry f/u Subjective ROS Limited/Unobtainable: Yes Interval Events: no new complains Allergies: Coded Allergies: NO KNOWN ALLERGIES (Unverified Allergy, Unknown, 03/07/15) Objective Last 24 Hour Vital Signs Date Time Temp Pulse Resp B/P Pulse Ox O2 Delivery O2 Flow Rate FiO2 05/18/16 16:02 98.1 60 18 144/67 92 Room Air 05/18/16 12:29 135/92 05/18/16 12:00 97.6 66 18 135/92 93 Room Air 05/18/16 09:50 140/77 05/18/16 09:49 64 140/77 05/18/16 09:47 64 140/77 05/18/16 08:00 97.5 66 20 147/69 95 Room Air 05/18/16 06:00 139/52 05/18/16 04:00 97.9 60 18 128/55 98 Room Air 05/18/16 00:00 98.1 66 20 139/52 97 Room Air 05/18/16 00:00 139/52 05/17/16 22:38 77 135/70 05/17/16 20:00 98.1 72 18 135/70 92 Room Air 05/17/16 18:00 102/48 Intake and Output 05/17/16 05/18/16 19:00 07:00 Intake Total 480 ml 240 ml Balance 480 ml 240 ml Intake Oral 480 ml 240 ml # Voids 2 1 Objective General Appearance: WD/WN HEENT: normocephalic, atraumatic Respiratory/Chest: chest wall non-tender, crackles/rales Cardiovascular: normal peripheral pulses, normal rate Abdomen: normal bowel sounds, soft, non tender Genitourinary: normal external genitalia Extremities: no cyanosis, no clubbing, left foot gangrene Skin: no rash 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: [employer] II-XII grossly normal Laboratory Tests 05/18/16 04:00: White Blood Count 12.8H, Red Blood Count 3.24L, Hemoglobin 8.7L, Hematocrit 27.3L, Mean Corpuscular Volume 84, Mean Corpuscular Hemoglobin 26.8L, Mean Corpuscular Hemoglobin Concent 31.7L, Red Cell Distribution Width 14.8, Platelet Count 318, Mean Platelet Volume 6.7, Neutrophils (%) (Auto) 77.6H, Lymphocytes (%) (Auto) 11.4L, Monocytes (%) (Auto) 8.9, Eosinophils (%) (Auto) 1.2, Basophils (%) (Auto) 1.0, Prothrombin Time 23.0H, Prothromb Time International Ratio 2.2H, Sodium Level 140, Potassium Level 2.8L, Chloride Level 95L, Carbon Dioxide Level 36H, Anion Gap 9, Blood Urea Nitrogen 17, Creatinine 0.7, Estimat Glomerular Filtration Rate > 60, Glucose Level 144H, Calcium Level 8.7, Total Bilirubin 1.5H, Direct Bilirubin 0.6H, Aspartate Amino Transf (AST/SGOT) 27, Alanine Aminotransferase (ALT/SGPT) 16, Alkaline Phosphatase 114H, Total Protein 6.1L, Albumin 2.2L, Globulin 3.9, Albumin/ Globulin Ratio 0.5L, Thyroid Stimulating Hormone (TSH) 1.670 Current Medications Medications (Trade) Dose Ordered Sig/Anh Route PRN Reason Start Time Stop Time Status Last Admin Dose Admin Acetaminophen (Tylenol) 650 mg Q4H PRN ORAL T>100.5 05/17/16 07:00 06/16/16 06:59 Al Hydroxide/Mg Hydroxide (Mylanta II) 30 ml Q6H PRN ORAL dyspepsia 05/17/16 07:00 06/16/16 06:59 Amlodipine Besylate (Norvasc) 5 mg DAILY ORAL 05/17/16 09:00 06/16/16 08:59 05/18/16 09:49 Atorvastatin Calcium (Lipitor) 40 mg BEDTIME ORAL 05/17/16 21:00 06/16/16 20:59 05/17/16 22:35 Carvedilol (Coreg) 50 mg EVERY 12 HOURS ORAL 05/17/16 21:00 06/16/16 20:59 05/18/16 09:47 Cefepime HCl/ Dextrose (Maxipime/D5W) 55 ml @ 110 mls/hr EVERY 12 HOURS IVPB 05/18/16 18:00 05/25/16 17:59 Dextrose (Dextrose 50%) STAT PRN IV Hypoglycemia 05/17/16 07:00 06/16/16 06:59 Furosemide (Lasix) 40 mg TWICE A DAY ORAL 05/17/16 09:00 06/16/16 08:59 05/18/16 14:08 Hydralazine HCl (Apresoline) 10 mg EVERY 6 HOURS ORAL 05/17/16 12:00 06/16/16 11:59 05/18/16 12:29 Insulin Aspart (NovoLOG) BEFORE MEALS AND HS SUBQ 05/17/16 11:30 06/16/16 11:29 05/18/16 17:02 Lisinopril (Prinivil) 20 mg DAILY ORAL 05/17/16 09:00 06/16/16 08:59 05/18/16 09:50 Lorazepam (Ativan 2mg/ml 1ml) 0.5 mg Q4H PRN IV For Anxiety 05/17/16 07:00 05/24/16 06:59 Metronidazole (Flagyl) 500 mg Q8HR ORAL 05/18/16 19:00 05/25/16 18:59 Morphine Sulfate (Morphine Sulfate) 1 mg Q4H PRN IVP PAIN 4-10 05/17/16 07:00 05/24/16 06:59 05/18/16 14:25 Ondansetron HCl (Zofran) 4 mg Q6H PRN IVP Nausea & Vomiting 05/17/16 07:00 06/16/16 06:59 Polyethylene Glycol (Miralax) 17 gm HSPRN PRN ORAL Constipation 05/17/16 21:00 06/16/16 20:59 Potassium Chloride 20 meq 20 meq ONCE ONCE ORAL 05/18/16 20:00 05/18/16 20:01 Vancomycin HCl 750 mg/Dextrose 275 ml @ 183.708 mls/hr Q12HR@0400,1600 IVPB 05/19/16 04:00 05/24/16 03:59 Vancomycin HCl 1 ea 1 ea DAILY PRN MISC . 05/18/16 14:30 06/17/16 14:29 Vancomycin HCl/ Dextrose (Vancomycin/D5W 500ml) 550 ml @ 275 mls/hr ONCE ONCE IVPB 05/18/16 16:00 05/18/16 17:59 05/18/16 16:55 Zolpidem Tartrate (Ambien) 5 mg HSPRN PRN ORAL Insomnia 05/17/16 21:00 06/16/16 20:59 AMRAIS POWERS May 18, 2016 17:33
--- NOTE | 2016-05-18 17:35 | Consultation ---
Consult Note Consult Note CONSULTING SPECIALTY: PODIATRY REASON FOR CONSULT: BILATERAL LOWER EXTREMITY WOUNDS CONSULTING PHYSICIAN: Adán Singh DPM covering for Franco Chun DPM HISTORY OF PRESENT ILLNESS: Orin Spivey is a 66 year old female who was admitted for elevated INR. Patient is being evaluated for bilateral lower extremity wounds. She states that the leg wounds are a result of pruritus and scratching. Patient does not recall when the plantar foot ulcer started and how it has been treated in the past. She reports no nausea, vomiting, fevers, or chills. Patient is emotional and states "I don't want to loose my foot." PAST MEDICAL HISTORY: HTN, heart failure, cardiomegaly, arrythmia, ventricular tachycardia, T2DM, degenerative joint disease SOCIAL: Denies tobacco, alcohol, or illicit drug use FAMILY AND SURGICAL HISTORY: Non contributory Allergies: Coded Allergies: NO KNOWN ALLERGIES (Unverified Allergy, Unknown, 03/07/15) Objective Objective Exam Last 24 Hour Vital Signs Date Time Temp Pulse Resp B/P Pulse Ox O2 Delivery O2 Flow Rate FiO2 05/18/16 16:02 98.1 60 18 144/67 92 Room Air 05/18/16 12:29 135/92 05/18/16 12:00 97.6 66 18 135/92 93 Room Air 05/18/16 09:50 140/77 05/18/16 09:49 64 140/77 05/18/16 09:47 64 140/77 05/18/16 08:00 97.5 66 20 147/69 95 Room Air 05/18/16 06:00 139/52 05/18/16 04:00 97.9 60 18 128/55 98 Room Air 05/18/16 00:00 98.1 66 20 139/52 97 Room Air 05/18/16 00:00 139/52 05/17/16 22:38 77 135/70 05/17/16 20:00 98.1 72 18 135/70 92 Room Air 05/17/16 18:00 102/48 Laboratory Tests Test 05/18/16 04:00 White Blood Count 12.8 K/UL (4.8-10.8) H Red Blood Count 3.24 M/UL (4.20-5.40) L Hemoglobin 8.7 G/DL (12.0-16.0) L Hematocrit 27.3 % (37.0-47.0) L Mean Corpuscular Volume 84 FL (80-99) Mean Corpuscular Hemoglobin 26.8 PG (27.0-31.0) L Mean Corpuscular Hemoglobin Concent 31.7 G/DL (32.0-36.0) L Red Cell Distribution Width 14.8 % (11.6-14.8) Platelet Count 318 K/UL (150-450) Mean Platelet Volume 6.7 FL (6.5-10.1) Neutrophils (%) (Auto) 77.6 % (45.0-75.0) H Lymphocytes (%) (Auto) 11.4 % (20.0-45.0) L Monocytes (%) (Auto) 8.9 % (1.0-10.0) Eosinophils (%) (Auto) 1.2 % (0.0-3.0) Basophils (%) (Auto) 1.0 % (0.0-2.0) Prothrombin Time 23.0 SEC (9.30-11.50) H Prothromb Time International Ratio 2.2 (0.9-1.1) H Sodium Level 140 mEQ/L (135-145) Potassium Level 2.8 mEQ/L (3.4-4.9) L Chloride Level 95 mEQ/L (98-107) L Carbon Dioxide Level 36 mEQ/L (20-30) H Anion Gap 9 (5-15) Blood Urea Nitrogen 17 mg/dL (7-23) Creatinine 0.7 mg/dL (0.5-0.9) Estimat Glomerular Filtration Rate > 60 mL/min (>60) Glucose Level 144 mg/dL (74-106) H Calcium Level 8.7 mg/dL (8.6-10.2) Total Bilirubin 1.5 mg/dL (0.0-1.2) H Direct Bilirubin 0.6 mg/dL (0.1-0.3) H Aspartate Amino Transf (AST/SGOT) 27 U/L (5-40) Alanine Aminotransferase (ALT/SGPT) 16 U/L (3-33) Alkaline Phosphatase 114 U/L (35-104) H Total Protein 6.1 g/dL (6.6-8.7) L Albumin 2.2 g/dL (3.5-5.2) L Globulin 3.9 g/dL Albumin/Globulin Ratio 0.5 (1.0-2.7) L Thyroid Stimulating Hormone (TSH) 1.670 uIU/mL (0.300-4.500) PHYSICAL EXAM: Dermatological: Right plantar hallux ulcer measures approximately 1.5cm x 2.0cm x 1.0cm deep. The wound probes to bone and tunnels proximally towards the metatarsal head. There is some fluctuance noted at the plantar 1st metatatsal head. The wound is surrounded by dark necrotic tissue. Malodor noted. No purulence. Mild surrounding edema. No erythema. Bilateral legs with multiple superficial open wounds in various stages of healing. The wounds have fibrotic tissue present at the base and some with dry stable eschars. Multiple scars from previously healed wounds present on bilateral legs Neurological: Sensation decreased to light touch Vascular: Pedal pulses are non palpable Musculoskeletal: Muscle strength appropriate for age Assessment/Plan ASSESSMENT: - Infected diabetic foot ulcer sub right hallux with tunneling, malodor, and gangrene. Probes to bone - Leukocytosis - Diabetic neuropathy - Peripheral vascular disease - Bilateral superficial leg ulcers PLAN: - Obtained cultures from the right hallux ulcer - Ordering MRI - Ordering arterial studies - Continue antibiotics per infectious disease specialist - Continue daily dressing changes Adán Singh DPM May 18, 2016 17:35
[2016-05-18] MEDS ORDERED: Cefepime HCl 1 GM in D5W 55 ML IVPB SCH (18:00)
[2016-05-18] MEDS: metroNIDAZOLE 500mg tab ORAL SCH (19:02)
--- NOTE | 2016-05-18 19:22 | General Progress Note ---
Assessment/Plan Assessment/Plan ASSESSMENT: 1. Supratherapeutic INR likely secondary to Coumadin overdose. Now improved 2. Coagulopathy 2/2 coumadin for Intracardiac thrombosis. 3. Anemia of chronic disease 4. R.o GI bleed with scope per Dr. Lane. 5. Decreased hemoglobin and hematocrit, rule out other component. 6. Leukocytosis and neutrophilia, rule out infection. 7. Hypertension. 8. Cardiomegaly. 9. History of congestive heart failure. PLAN: 1. Monitor counts. 2. Vitamin K administered again today 3. Monitor prothrombin time and INR. 4. The patient is currently without bleeding. 5. Hold coumadin until GI procedure completed 6. Appreciate Pulmonary Critical Care and Nephrology recommendations. 7. Duplex of lower extremities negative for DVT 8. Staff Thank you, Lazarus Jean-Baptiste MD Subjective Constitutional: Reports: no symptoms HEENT: Reports: no symptoms Cardiovascular: Reports: no symptoms Respiratory: Reports: no symptoms Gastrointestinal/Abdominal: Reports: poor appetite Genitourinary: Reports: no symptoms 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: Reports: no symptoms Endocrine: Reports: no symptoms Hematologic/Lymphatic: Reports: anemia Allergies: Coded Allergies: NO KNOWN ALLERGIES (Unverified Allergy, Unknown, 03/07/15) Subjective inr better today, no overt bleeding Objective Last 24 Hour Vital Signs Date Time Temp Pulse Resp B/P Pulse Ox O2 Delivery O2 Flow Rate FiO2 05/18/16 19:02 144/67 05/18/16 16:02 98.1 60 18 144/67 92 Room Air 05/18/16 12:29 135/92 05/18/16 12:00 97.6 66 18 135/92 93 Room Air 05/18/16 09:50 140/77 05/18/16 09:49 64 140/77 05/18/16 09:47 64 140/77 05/18/16 08:00 97.5 66 20 147/69 95 Room Air 05/18/16 06:00 139/52 05/18/16 04:00 97.9 60 18 128/55 98 Room Air 05/18/16 00:00 98.1 66 20 139/52 97 Room Air 05/18/16 00:00 139/52 05/17/16 22:38 77 135/70 05/17/16 20:00 98.1 72 18 135/70 92 Room Air Intake and Output 05/17/16 05/18/16 19:00 07:00 Intake Total 480 ml 240 ml Balance 480 ml 240 ml Intake Oral 480 ml 240 ml # Voids 2 1 Laboratory Tests 05/18/16 04:00: White Blood Count 12.8H, Red Blood Count 3.24L, Hemoglobin 8.7L, Hematocrit 27.3L, Mean Corpuscular Volume 84, Mean Corpuscular Hemoglobin 26.8L, Mean Corpuscular Hemoglobin Concent 31.7L, Red Cell Distribution Width 14.8, Platelet Count 318, Mean Platelet Volume 6.7, Neutrophils (%) (Auto) 77.6H, Lymphocytes (%) (Auto) 11.4L, Monocytes (%) (Auto) 8.9, Eosinophils (%) (Auto) 1.2, Basophils (%) (Auto) 1.0, Prothrombin Time 23.0H, Prothromb Time International Ratio 2.2H, Sodium Level 140, Potassium Level 2.8L, Chloride Level 95L, Carbon Dioxide Level 36H, Anion Gap 9, Blood Urea Nitrogen 17, Creatinine 0.7, Estimat Glomerular Filtration Rate > 60, Glucose Level 144H, Calcium Level 8.7, Total Bilirubin 1.5H, Direct Bilirubin 0.6H, Aspartate Amino Transf (AST/SGOT) 27, Alanine Aminotransferase (ALT/SGPT) 16, Alkaline Phosphatase 114H, Total Protein 6.1L, Albumin 2.2L, Globulin 3.9, Albumin/ Globulin Ratio 0.5L, Thyroid Stimulating Hormone (TSH) 1.670 Height (Feet): 5 Height (Inches): 7.00 Weight (Pounds): 230 General Appearance: no apparent distress EENT: TMs normal Neck: supple Cardiovascular: regular rhythm Respiratory/Chest: normal breath sounds Abdomen: no mass Extremities: non-tender Edema: 1+ Leg (L), 1+ Leg (R) Neurologic: alert Skin: warm/dry Lazarus Jean-Baptiste May 18, 2016 19:22
[2016-05-18 19:55] LABS: INR 1.4 (0.9-1.1); PROTHROMBIN TIME 14.8 SEC (9.30-11.50)
[2016-05-18 20:00] VITALS: BP 132/55
--- NOTE | 2016-05-18 20:53 | Pulmonology Progress Note ---
Assessment/Plan Problems: (1) Coagulopathy (2) Diabetic foot ulcer (3) Ventricular mural thrombus (4) HTN (hypertension) (5) DM (diabetes mellitus) (6) Anemia, chronic disease Assessment/Plan Assessment/Plan monitor heart rate venous dupplex negative cardio evaluation appreciated f/u h/h, pt/ptt continue antibiotics refusing stress test bradycardia resolved wound care med/surg Subjective Constitutional: Reports: anorexia, chills, fatigue Respiratory: Reports: dry cough Neurologic: Reports: confusion, weakness Skin: Reports: rash, ulcer Musculoskeletal: Reports: pain, stiffness, swelling Allergies: Coded Allergies: NO KNOWN ALLERGIES (Unverified Allergy, Unknown, 03/07/15) Objective Last 24 Hour Vital Signs Date Time Temp Pulse Resp B/P Pulse Ox O2 Delivery O2 Flow Rate FiO2 05/18/16 19:02 144/67 05/18/16 16:02 98.1 60 18 144/67 92 Room Air 05/18/16 12:29 135/92 05/18/16 12:00 97.6 66 18 135/92 93 Room Air 05/18/16 09:50 140/77 05/18/16 09:49 64 140/77 05/18/16 09:47 64 140/77 05/18/16 08:00 97.5 66 20 147/69 95 Room Air 05/18/16 06:00 139/52 05/18/16 04:00 97.9 60 18 128/55 98 Room Air 05/18/16 00:00 98.1 66 20 139/52 97 Room Air 05/18/16 00:00 139/52 05/17/16 22:38 77 135/70 Intake and Output 05/17/16 05/18/16 19:00 07:00 Intake Total 480 ml 240 ml Balance 480 ml 240 ml Intake Oral 480 ml 240 ml # Voids 2 1 General Appearance: no acute distress HEENT: normocephalic, atraumatic, PERRL Respiratory/Chest: chest wall non-tender, lungs clear, normal breath sounds Cardiovascular: tachycardia Abdomen: normal bowel sounds, soft, non tender, no organomegaly, non distended Genitourinary: normal external genitalia Extremities: no cyanosis Skin: rash, lesions, ulcers 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 grossly normal, responsive, disoriented Laboratory Tests 05/18/16 04:00: White Blood Count 12.8H, Red Blood Count 3.24L, Hemoglobin 8.7L, Hematocrit 27.3L, Mean Corpuscular Volume 84, Mean Corpuscular Hemoglobin 26.8L, Mean Corpuscular Hemoglobin Concent 31.7L, Red Cell Distribution Width 14.8, Platelet Count 318, Mean Platelet Volume 6.7, Neutrophils (%) (Auto) 77.6H, Lymphocytes (%) (Auto) 11.4L, Monocytes (%) (Auto) 8.9, Eosinophils (%) (Auto) 1.2, Basophils (%) (Auto) 1.0, Prothrombin Time 23.0H, Prothromb Time International Ratio 2.2H, Sodium Level 140, Potassium Level 2.8L, Chloride Level 95L, Carbon Dioxide Level 36H, Anion Gap 9, Blood Urea Nitrogen 17, Creatinine 0.7, Estimat Glomerular Filtration Rate > 60, Glucose Level 144H, Calcium Level 8.7, Total Bilirubin 1.5H, Direct Bilirubin 0.6H, Aspartate Amino Transf (AST/SGOT) 27, Alanine Aminotransferase (ALT/SGPT) 16, Alkaline Phosphatase 114H, Total Protein 6.1L, Albumin 2.2L, Globulin 3.9, Albumin/ Globulin Ratio 0.5L, Thyroid Stimulating Hormone (TSH) 1.670 05/18/16 19:30: Prothrombin Time 14.8H, Prothromb Time International Ratio 1.4H Current Medications Medications (Trade) Dose Ordered Sig/Anh Route PRN Reason Start Time Stop Time Status Last Admin Dose Admin Acetaminophen (Tylenol) 650 mg Q4H PRN ORAL T>100.5 05/17/16 07:00 06/16/16 06:59 Al Hydroxide/Mg Hydroxide (Mylanta II) 30 ml Q6H PRN ORAL dyspepsia 05/17/16 07:00 06/16/16 06:59 Amlodipine Besylate (Norvasc) 5 mg DAILY ORAL 05/17/16 09:00 06/16/16 08:59 05/18/16 09:49 Atorvastatin Calcium (Lipitor) 40 mg BEDTIME ORAL 05/17/16 21:00 06/16/16 20:59 05/17/16 22:35 Carvedilol (Coreg) 50 mg EVERY 12 HOURS ORAL 05/17/16 21:00 06/16/16 20:59 05/18/16 09:47 Cefepime HCl 1 gm/ Dextrose 55 ml @ 110 mls/hr EVERY 12 HOURS IVPB 05/18/16 22:00 05/25/16 21:59 Collagenase (Santyl) 1 applic DAILY TOPIC 05/19/16 09:00 06/18/16 08:59 UNV Dextrose (Dextrose 50%) STAT PRN IV Hypoglycemia 05/17/16 07:00 06/16/16 06:59 Furosemide (Lasix) 40 mg TWICE A DAY ORAL 05/17/16 09:00 06/16/16 08:59 05/18/16 19:02 Hydralazine HCl (Apresoline) 10 mg EVERY 6 HOURS ORAL 05/17/16 12:00 06/16/16 11:59 05/18/16 19:02 Insulin Aspart BEFORE MEALS AND HS SUBQ 05/17/16 11:30 06/16/16 11:29 05/18/16 17:02 Lisinopril (Prinivil) 20 mg DAILY ORAL 05/17/16 09:00 06/16/16 08:59 05/18/16 09:50 Lorazepam (Ativan 2mg/ml 1ml) 0.5 mg Q4H PRN IV For Anxiety 05/17/16 07:00 05/24/16 06:59 Metronidazole (Flagyl) 500 mg Q8HR ORAL 05/18/16 19:00 05/25/16 18:59 05/18/16 19:02 Morphine Sulfate (Morphine Sulfate) 1 mg Q4H PRN IVP PAIN 4-10 05/17/16 07:00 05/24/16 06:59 05/18/16 14:25 Ondansetron HCl (Zofran) 4 mg Q6H PRN IVP Nausea & Vomiting 05/17/16 07:00 06/16/16 06:59 Phytonadione/ Dextrose (Vitamin K/D5W) 56 ml @ 112 mls/hr ONCE ONCE IVPB 05/18/16 21:00 05/18/16 21:29 Polyethylene Glycol (Miralax) 17 gm HSPRN PRN ORAL Constipation 05/17/16 21:00 06/16/16 20:59 Polyethylene Glycol/ Electrolytes 4000 ml 4,000 ml ONCE ONCE ORAL 05/19/16 06:30 05/19/16 06:31 Povidone Iodine (Betadine Chrystal) 1 applic DAILY ONCE TOPIC 05/19/16 09:00 05/19/16 09:01 UNV Vancomycin HCl (Vanco rx to dose) 1 ea DAILY PRN MISC . 05/18/16 14:30 06/17/16 14:29 Vancomycin HCl/ Dextrose (Vancomycin/D5W) 275 ml @ 183.708 mls/hr Q12HR@0400,1600 IVPB 05/19/16 04:00 05/24/16 03:59 Zolpidem Tartrate (Ambien) 5 mg HSPRN PRN ORAL Insomnia 05/17/16 21:00 06/16/16 20:59 AMARIS POWERS May 18, 2016 20:53
[2016-05-18] MEDS ORDERED: Phytonadione 10 MG in D5W 55 ML IVPB ONE (21:00)
--- NOTE | 2016-05-18 22:03 | General Progress Note ---
Progress Note Progress Note Dictated consult to follow Asked by Dr Chun to eval right foot gangrene Hx of Obesity, CHF, HTN, Arrhythmia on Coumadin, IDDM, Anemia Right foot foul smelling necrosis and gangrene with extension to below ankle 2+ femorals absent popliteal DP PT pulses absent Imp Severe calcific PAD with right foot advanced foul smelling gangrene/necrosis Multiple risk factors Rec Abx per ID Check leg arterial duplex Will need right foot open amputation to drain pus infection per podiatry Then if ankle foot salvageable--will need selective right leg angio to assess for revascularization Cards eval Anticoagulate with IV heparin High risk patient d/w Dr Chun and Dr Campos d/w RN at bedside CLOVIS MEZA May 18, 2016 22:03
[2016-05-18] MEDS ORDERED: Sorbitol Solution UD 30ml ORAL ONE (22:15)
--- NOTE | 2016-05-18 22:16 | General Progress Note ---
Assessment/Plan Assessment/Plan Assessment - resolved coagulopathy - anemia - functional decline - HTN - DM - ventricular clot Recommendations - clears - fewer laxatives tomorrow EGD/Colon Monday at 0700 Subjective Allergies: Coded Allergies: NO KNOWN ALLERGIES (Unverified Allergy, Unknown, 03/07/15) Subjective Feels OK / same no new complaints few small BM Objective Last 24 Hour Vital Signs Date Time Temp Pulse Resp B/P Pulse Ox O2 Delivery O2 Flow Rate FiO2 05/18/16 21:23 61 132/55 05/18/16 20:00 97.5 61 17 132/55 94 05/18/16 19:02 144/67 05/18/16 16:02 98.1 60 18 144/67 92 Room Air 05/18/16 12:29 135/92 05/18/16 12:00 97.6 66 18 135/92 93 Room Air 05/18/16 09:50 140/77 05/18/16 09:49 64 140/77 05/18/16 09:47 64 140/77 05/18/16 08:00 97.5 66 20 147/69 95 Room Air 05/18/16 06:00 139/52 05/18/16 04:00 97.9 60 18 128/55 98 Room Air 05/18/16 00:00 98.1 66 20 139/52 97 Room Air 05/18/16 00:00 139/52 05/17/16 22:38 77 135/70 Intake and Output 05/17/16 05/18/16 19:00 07:00 Intake Total 480 ml 240 ml Balance 480 ml 240 ml Intake Oral 480 ml 240 ml # Voids 2 1 Laboratory Tests 05/18/16 04:00: White Blood Count 12.8H, Red Blood Count 3.24L, Hemoglobin 8.7L, Hematocrit 27.3L, Mean Corpuscular Volume 84, Mean Corpuscular Hemoglobin 26.8L, Mean Corpuscular Hemoglobin Concent 31.7L, Red Cell Distribution Width 14.8, Platelet Count 318, Mean Platelet Volume 6.7, Neutrophils (%) (Auto) 77.6H, Lymphocytes (%) (Auto) 11.4L, Monocytes (%) (Auto) 8.9, Eosinophils (%) (Auto) 1.2, Basophils (%) (Auto) 1.0, Prothrombin Time 23.0H, Prothromb Time International Ratio 2.2H, Sodium Level 140, Potassium Level 2.8L, Chloride Level 95L, Carbon Dioxide Level 36H, Anion Gap 9, Blood Urea Nitrogen 17, Creatinine 0.7, Estimat Glomerular Filtration Rate > 60, Glucose Level 144H, Calcium Level 8.7, Total Bilirubin 1.5H, Direct Bilirubin 0.6H, Aspartate Amino Transf (AST/SGOT) 27, Alanine Aminotransferase (ALT/SGPT) 16, Alkaline Phosphatase 114H, Total Protein 6.1L, Albumin 2.2L, Globulin 3.9, Albumin/ Globulin Ratio 0.5L, Thyroid Stimulating Hormone (TSH) 1.670 05/18/16 19:30: Prothrombin Time 14.8H, Prothromb Time International Ratio 1.4H Height (Feet): 5 Height (Inches): 7.00 Weight (Pounds): 230 Objective WDWN NCAT supple CTA RRR Soft ND NT (+) LE wounds SHRUTI DE ANDA May 18, 2016 22:16
--- NOTE | 2016-05-18 22:29 | Consultation ---
DATE OF CONSULTATION: 05/18/2016 INFECTIOUS DISEASE CONSULTATION REASON FOR CONSULTATION: Right big toe infection with gangrene and multiple wounds on both legs and sepsis. Recommendation for antibiotics treatment. REQUESTING PHYSICIAN: Brittny Campos M.D. HISTORY OF PRESENT ILLNESS: The patient is a 66-year-old female with past medical history of stroke, cardiomegaly, CHF, and intraventricular thrombus who had stroke recently. She was hospitalized at [facility] and spent sometimes in rehab, presented to [facility] with abnormal lab including elevated INR, which was 12.1 on routine blood check. The patient was taking Coumadin for intracardiac thrombosis. No bleeding or hematuria. The patient was found to have right big toe gangrene with infection, draining pus material, and foul smelling upon admission. So, I was consulted by the primary provider and office rental clerk for antibiotics recommendation and further treatment. As of note, the patient is confused and cannot provide any history. History was mainly obtained from the daughter, who was at the bedside. PAST MEDICAL HISTORY: Significant for CHF, intracardiac thrombosis, arrhythmia, hypertension, diabetes, and CVA with hemiplegia. PAST SURGICAL HISTORY: Negative. MEDICATIONS: The patient was started on regular old medicine she had at home including blood pressure medication and anticholesterol medication. For detail, please refer to MAR. ALLERGIES: She has no known drug allergy. FAMILY HISTORY: Unable to obtain at this point. SOCIAL HISTORY: The patient lives with daughter at home. Recently, she has been in rehab since February. REVIEW OF SYSTEMS: Unable to obtain at this point. The patient is a poor historian, cannot provide good history. PHYSICAL EXAMINATION: VITAL SIGNS: Temperature 97.6, pulse 66, respirations 18, blood pressure 135/92, and pulse oximetry 93% on room air. GENERAL: An elderly female, alert, up in bed, oriented x2, not in distress. HEENT: Normocephalic and atraumatic. Pupils are reactive to light equally. Moist oral mucosa. No exudate. NECK: Supple. No lymphadenopathy. CARDIOVASCULAR: Regular rate and rhythm. No murmur or gallop. LUNGS: Clear bilaterally. No wheezing or rhonchi. ABDOMEN: Soft, nontender, and nondistended. Obese. No hepatomegaly. No ascites. EXTREMITIES: She had multiple wounds on both lower extremities with left lateral leg large wound and cellulitis with exudate. She had right big toe gangrene with open wound draining pus material with foul smelling. LABORATORY DATA: Labs showed white count of 12.8, hemoglobin of 8.7, hematocrit of 27.3, and platelet count of 318,000. BUN of 17 and creatinine 0.7. AST of 27 and ALT of 16. INR 2.2. IMAGING: Chest x-ray showed cardiomegaly, equivocal mild interstitial congestion. Venous Doppler revealed patent deep venous system bilaterally. No evidence of thrombus within the femoral-popliteal arterial segment. ASSESSMENT AND PLAN: 1. Right big toe gangrenes. We will send blood culture to rule out bacteremia. Start the patient empirically on vancomycin, cefepime, and Flagyl. Recommend office rental clerk evaluation for possible amputation. 2. Open wounds of both legs with complications. Continue local wound care as per wound care service and off-loading. The patient will be on wide-spectrum antibiotics therapy anyway for her right big toe gangrene. 3. Sepsis due to the above. The patient will be on wide-spectrum antibiotics therapy. We will send blood culture. Recommend office rental clerk consult for right big toe debridement or amputation if needed. 4. Coagulopathy due to Coumadin, improving. Monitor INR. 5. Diabetes. Recommend tight glycemic control to keep blood glucose between 80 to 120. Anju Judd M.D. DR: DAYRON JOB#: [id number] CC: NIYAH
--- NOTE | 2016-05-18 22:39 | Wound Care Consultation ---
Wound Assessment Wound Assessment #1: Wound Present on Admission: Yes New Wound: No Status Change of Wound: No Wound Location Body Site Modif: right, posterior Wound Location Body Site: toe - 1st Wound Type: lesion-etiology unknown Luna Test: Does not Luna Vascular Issues: gangrene Wound Thickness: Full Thickness Wound Length: 1.5 Wound Width: 2.0 Wound Depth: 1.0 Percent of Wound Bed Yellow/Wh: 10 Percent of Wound Black/Brown: 90 Wound Drainage Description: Serosanguineous Wound Drainage Amount: Scant Wound Drainage Odor: Foul Odor Tissue Surrounding Wound: Indurated Wound General Appearance: Blackened, Necrotic Wound Assessment #2: Wound Number: #2 Wound Present on Admission: Yes New Wound: No Status Change of Wound: No Wound Location Body Site Modif: right, posterior Wound Location Body Site: metatarsal head - 1st and 2nd Wound Type: lesion-etiology unknown Luna Test: Does not Luna Wound Thickness: Full Thickness Wound Length: 11.5 Wound Width: 6.0 Wound Depth: utd Percent of Wound Black/Brown: 100 Wound Drainage Odor: Foul Odor Tissue Surrounding Wound: Indurated Wound General Appearance: Blackened Wound Assessment #3: Wound Number: #3 Wound Present on Admission: Yes New Wound: No Status Change of Wound: No Wound Location Body Site Modif: left, lower, anterior Wound Location Body Site: leg Wound Type: lesion-etiology unknown Luna Test: Does not Luna Wound Thickness: Full Thickness Wound Length: 11.0 Wound Width: 6.5 Wound Depth: utd Percent of Wound [place]/Red: 20 Percent of Wound Bed Yellow/Wh: 80 Wound Drainage Description: Serosanguineous Wound Drainage Amount: Moderate Wound Drainage Odor: Mild Odor Tissue Surrounding Wound: Macerated Wound General Appearance: Reddened, Draining Wound Assessment #4: Wound Number: #4 Wound Present on Admission: Yes New Wound: No Status Change of Wound: No Wound Location Body Site Modif: left, lower, posterior Wound Location Body Site: leg Wound Type: lesion-etiology unknown Luna Test: Does not Luna Wound Thickness: Full Thickness Wound Length: 13.0 Wound Width: 5.0 Wound Depth: utd Percent of Wound [place]/Red: 10 Percent of Wound Bed Yellow/Wh: 90 Wound Drainage Description: Serosanguineous Wound Drainage Amount: Moderate Wound Drainage Odor: None/Absent Tissue Surrounding Wound: Macerated Wound General Appearance: Reddened, Draining Wound Assessment #5: Wound Number: #5 Wound Present on Admission: Yes New Wound: No Status Change of Wound: No Wound Location Body Site Modif: left Wound Location Body Site: heel Wound Type: pressure ulcer Luna Test: Does not Luna Pressure Ulcer Stage: deep tissue injury Wound Thickness: Full Thickness Wound Length: 4.5 Wound Width: 4.0 Wound Depth: utd Percent of Wound [place]/Red: 50 Percent of Wound Black/Brown: 50 Wound Drainage Amount: None Wound Drainage Odor: None/Absent Tissue Surrounding Wound: Indurated Wound General Appearance: Reddened Wound Assessment #6: Wound Number: #6 Wound Present on Admission: Yes New Wound: No Status Change of Wound: No Wound Location Body Site Modif: right, lower, posterior Wound Location Body Site: leg Wound Type: lesion-etiology unknown Luna Test: Does not Luna Wound Thickness: Full Thickness Wound Length: 3.0 Wound Width: 4.0 Wound Depth: utd Percent of Wound [place]/Red: 10 Percent of Wound Bed Yellow/Wh: 90 Wound Drainage Description: Serosanguineous Wound Drainage Amount: Moderate Wound Drainage Odor: None/Absent Tissue Surrounding Wound: Macerated Wound General Appearance: Asymptomatic, Draining Wound Comment #1 Right posterior lower leg open wound #2 Left anterior lower leg open wound #3 Left posterior lower leg open wound #4 Left heel DTI pressure ulcer #5 Right posterior lower 1st toe open wound surrounding tissue black in color with foul odor #6 Right 1st and 2nd metatarsal head black in color Recommendation -Six Pack Packer consult -Offload both heels -Turn and reposition -Heel protector on both heels -Keep clean and dry -Optimize nutrition -Local wound care as ordered by MD -Low air loss overlay mattress -Assess and f/u with Six Pack Packer for any changes MONAE GARCIA RN May 18, 2016 22:39
[2016-05-18] MEDS: Cefepime HCl 1 GM in D5W 55 ML IVPB SCH (23:31)
[2016-05-19] VITALS: BP 127/71
[2016-05-19] MEDS: HydrALAZINE 10mg Tab ORAL SCH ×4 (00:36→18:19)
[2016-05-19] MEDS: Vancomycin 750 MG in D5W 275 ML IVPB SCH ×2 (03:42→18:14)
[2016-05-19 04:00] VITALS: BP 133/75
[2016-05-19] MEDS ORDERED: Nulytely 4L ORAL ONE (06:30)
[2016-05-19] MEDS: metroNIDAZOLE 500mg tab ORAL SCH ×3 (06:43→21:27)
[2016-05-19] MEDS: NovoLOG Insulin Flexpen SUBQ SCH ×4 (06:48→21:29)
[2016-05-19 08:00] VITALS: BP 154/75
[2016-05-19] MEDS: Lisinopril 20mg tab ORAL SCH (08:19)
[2016-05-19] MEDS: Carvedilol 25mg Tab ORAL SCH ×2 (08:19→21:27)
[2016-05-19] MEDS: Furosemide 40mg tab ORAL SCH ×2 (08:20→18:19)
[2016-05-19] MEDS ORDERED: Betadine 4oz Bottle TOPIC ONE ×2 (09:00)
[2016-05-19] MEDS: Cefepime HCl 1 GM in D5W 55 ML IVPB SCH ×2 (09:43→20:46)
--- NOTE | 2016-05-19 09:54 | General Progress Note ---
Assessment/Plan Assessment/Plan Assessment - resolved coagulopathy - anemia - functional decline - HTN - DM - ventricular clot Recommendations - clears - golytely - EGD/Colon Monday at 0700 - OK to place on heparin gtt until [place] [facility] - f/u K level today Subjective Allergies: Coded Allergies: NO KNOWN ALLERGIES (Unverified Allergy, Unknown, 03/07/15) Subjective no complaints on clears trying to take golytely Objective Last 24 Hour Vital Signs Date Time Temp Pulse Resp B/P Pulse Ox O2 Delivery O2 Flow Rate FiO2 05/19/16 08:19 154/75 05/19/16 08:19 68 154/75 05/19/16 08:19 68 154/75 05/19/16 08:00 97.7 68 22 154/75 95 05/19/16 06:43 139/77 05/19/16 04:00 97.7 71 18 133/75 95 Room Air 05/19/16 00:36 127/71 05/19/16 00:00 97.9 63 20 127/71 96 Room Air 05/18/16 21:23 61 132/55 05/18/16 20:00 97.5 61 17 132/55 94 05/18/16 19:02 144/67 05/18/16 16:02 98.1 60 18 144/67 92 Room Air 05/18/16 12:29 135/92 05/18/16 12:00 97.6 66 18 135/92 93 Room Air Intake and Output 05/18/16 05/19/16 19:00 07:00 Intake Total 275 ml 1081.000 ml Balance 275 ml 1081.000 ml Intake Oral 420 ml IV Total 275 ml 661.000 ml # Voids 1 7 # Bowel Movements 6 Laboratory Tests 05/18/16 19:30: Prothrombin Time 14.8H, Prothromb Time International Ratio 1.4H Height (Feet): 5 Height (Inches): 7.00 Weight (Pounds): 230 Objective WDWN NCAT supple CTA RRR Soft ND NT (+) LE wounds TOMASAROBERTARTEMSHRUTI May 19, 2016 09:54
--- NOTE | 2016-05-19 11:12 | General Progress Note ---
Assessment/Plan Assessment/Plan ASSESSMENT: 1. Supratherapeutic INR likely secondary to Coumadin overdose. Now improved to 1.4, does not need FFP, have administered vit k again 2. Coagulopathy 2/2 coumadin for Intracardiac thrombosis. 3. Anemia of chronic disease 4. R.o GI bleed with scope per Dr. Lane. 5. Decreased hemoglobin and hematocrit, rule out other component. 6. Leukocytosis and neutrophilia, rule out infection. 7. Hypertension. 8. Cardiomegaly. 9. History of congestive heart failure PLAN: 1. Monitor counts. 2. Vitamin K administered and inr better 3. GI procedure tomorrow am 4. The patient is currently without bleeding. 5. Hold coumadin until GI procedure completed, hold off on heparin given anemia 6. Appreciate Pulmonary Critical Care and Nephrology recs 7. Duplex of lower extremities negative for DVT 8. Staff Thank you, Lazarus Jean-Baptiste MD Subjective Constitutional: Reports: no symptoms HEENT: Reports: no symptoms Cardiovascular: Reports: no symptoms Respiratory: Reports: no symptoms Gastrointestinal/Abdominal: Reports: no symptoms Genitourinary: Reports: no symptoms 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: Reports: no symptoms Endocrine: Reports: no symptoms Hematologic/Lymphatic: Reports: anemia Allergies: Coded Allergies: NO KNOWN ALLERGIES (Unverified Allergy, Unknown, 03/07/15) Subjective inr better today, no overt bleeding Objective Last 24 Hour Vital Signs Date Time Temp Pulse Resp B/P Pulse Ox O2 Delivery O2 Flow Rate FiO2 05/19/16 08:19 154/75 05/19/16 08:19 68 154/75 05/19/16 08:19 68 154/75 05/19/16 08:00 97.7 68 22 154/75 95 05/19/16 06:43 139/77 05/19/16 04:00 97.7 71 18 133/75 95 Room Air 05/19/16 00:36 127/71 05/19/16 00:00 97.9 63 20 127/71 96 Room Air 05/18/16 21:23 61 132/55 05/18/16 20:00 97.5 61 17 132/55 94 05/18/16 19:02 144/67 05/18/16 16:02 98.1 60 18 144/67 92 Room Air 05/18/16 12:29 135/92 05/18/16 12:00 97.6 66 18 135/92 93 Room Air Intake and Output 05/18/16 05/19/16 19:00 07:00 Intake Total 275 ml 1081.000 ml Balance 275 ml 1081.000 ml Intake Oral 420 ml IV Total 275 ml 661.000 ml # Voids 1 7 # Bowel Movements 6 Laboratory Tests 05/18/16 19:30: Prothrombin Time 14.8H, Prothromb Time International Ratio 1.4H Height (Feet): 5 Height (Inches): 7.00 Weight (Pounds): 230 General Appearance: no apparent distress EENT: TMs normal Neck: supple Cardiovascular: regular rhythm Respiratory/Chest: normal breath sounds Abdomen: non tender Extremities: non-tender Edema: 1+ Leg (L), 1+ Leg (R) Edema: mild edema Neurologic: abnormal gait Skin: warm/dry Lazarus Jean-Baptiste May 19, 2016 11:12
--- NOTE | 2016-05-19 11:23 | General Progress Note ---
Assessment/Plan Problem List: (1) Dizziness ICD Codes: R42 - Dizziness and giddiness SNOMED: 241349172 (2) HTN (hypertension) ICD Codes: I10 - Essential (primary) hypertension SNOMED: 93045330 (3) DM (diabetes mellitus) ICD Codes: E11.9 - Type 2 diabetes mellitus without complications SNOMED: 05981945 (4) Anemia, chronic disease ICD Codes: D63.8 - Anemia in other chronic diseases classified elsewhere; T45.515A - Adverse effect of anticoagulants, initial encounter SNOMED: 939495511, 243611023 (5) Coagulopathy ICD Codes: D68.9 - Coagulation defect, unspecified SNOMED: 58161656 (6) V-tach ICD Codes: I47.2 - Ventricular tachycardia SNOMED: 97178302 (7) Ventricular mural thrombus SNOMED: 12607633 Status: progressing Assessment/Plan foot gangrene amputation per podiatry and vascular surgeon abx per id afebrile coaguluapthy improving Subjective ROS Limited/Unobtainable: Yes Constitutional: Reports: no symptoms Allergies: Coded Allergies: NO KNOWN ALLERGIES (Unverified Allergy, Unknown, 03/07/15) Objective Last 24 Hour Vital Signs Date Time Temp Pulse Resp B/P Pulse Ox O2 Delivery O2 Flow Rate FiO2 05/19/16 08:19 154/75 05/19/16 08:19 68 154/75 05/19/16 08:19 68 154/75 05/19/16 08:00 97.7 68 22 154/75 95 05/19/16 06:43 139/77 05/19/16 04:00 97.7 71 18 133/75 95 Room Air 05/19/16 00:36 127/71 05/19/16 00:00 97.9 63 20 127/71 96 Room Air 05/18/16 21:23 61 132/55 05/18/16 20:00 97.5 61 17 132/55 94 05/18/16 19:02 144/67 05/18/16 16:02 98.1 60 18 144/67 92 Room Air 05/18/16 12:29 135/92 05/18/16 12:00 97.6 66 18 135/92 93 Room Air Intake and Output 05/18/16 05/19/16 19:00 07:00 Intake Total 275 ml 1081.000 ml Balance 275 ml 1081.000 ml Intake Oral 420 ml IV Total 275 ml 661.000 ml # Voids 1 7 # Bowel Movements 6 Laboratory Tests 05/18/16 19:30: Prothrombin Time 14.8H, Prothromb Time International Ratio 1.4H Height (Feet): 5 Height (Inches): 7.00 Weight (Pounds): 230 EENT: PERRL/EOMI Neck: supple Cardiovascular: normal rate Respiratory/Chest: lungs clear Abdomen: soft Brittny Campos MD May 19, 2016 11:23
[2016-05-19 11:50] LABS: ANION GAP 12 (5-15); CARBON DIOXIDE 34 mEQ/L (20-30); CHLORIDE 93 mEQ/L (98-107); CREATININE 0.7 mg/dL (0.5-0.9); GLOMERULAR FILTRATION RATE > 60 mL/min (>60); HEMOLYSIS 0; MAGNESIUM 1.5 mg/dL (1.7-2.5); PHOSPHORUS 2.5 mg/dL (2.5-4.8); POTASSIUM 2.9 mEQ/L (3.4-4.9); SODIUM 139 mEQ/L (135-145)
[2016-05-19 12:00] VITALS: BP 156/73
--- NOTE | 2016-05-19 16:58 | Infectious Diseases Prog Note ---
Assessment/Plan Problems: (1) Toe gangrene Assessment & Plan: blood culture is pending to rule out bacteremia, continue vancomycin, cefepime and flagyl empirically, showroom manager is consulted for possible amputation. (2) Open wound of both legs with complication Assessment & Plan: continue local wound care as per wound care service, and off loading , she will be started on wide spectrum antibiotics (3) Sepsis Assessment & Plan: due to the above, continue vancomycin, cefepime and metronidazol, await blood culture (4) Coagulopathy Assessment & Plan: due to comuadin, improving, monitor INR (5) DM (diabetes mellitus) Assessment & Plan: recommend tight glycemic control to keep blood glucose between 80-120 Subjective Constitutional: Denies: anorexia, chills, drenching sweats, fatigue, fever, no symptoms, other HEENT: Denies: congestion, coryza, dysphagia, hearing change, no symptoms, other, visual change Respiratory: Denies: dry cough, no symptoms, other, productive cough, shortness of breath Cardiovascular: Denies: chest pain, dyspnea on exertion, no symptoms, other, palpitations Gastrointestinal/Abdominal: Denies: bloating, blood in stool, constipation, diarrhea, nausea, no symptoms, other, vomiting Genitourinary: Denies: dysuria, frequency, hematuria, last menstrual period, no symptoms, nocturia, other, vaginal bleed/discharge Neurologic: Reports: confusion Psychiatric: Denies: anxiety, depression, no symptoms, other Skin: Reports: ulcer Musculoskeletal: Reports: pain Allergies: Coded Allergies: NO KNOWN ALLERGIES (Unverified Allergy, Unknown, 03/07/15) Objective Vital Signs Last 24 Hour Vital Signs Date Time Temp Pulse Resp B/P Pulse Ox O2 Delivery O2 Flow Rate FiO2 05/19/16 13:35 156/73 05/19/16 12:00 96.4 70 20 156/73 98 Room Air 05/19/16 08:19 154/75 05/19/16 08:19 68 154/75 05/19/16 08:19 68 154/75 05/19/16 08:00 97.7 68 22 154/75 95 05/19/16 06:43 139/77 05/19/16 04:00 97.7 71 18 133/75 95 Room Air 05/19/16 00:36 127/71 05/19/16 00:00 97.9 63 20 127/71 96 Room Air 05/18/16 21:23 61 132/55 05/18/16 20:00 97.5 61 17 132/55 94 05/18/16 19:02 144/67 Height (Feet): 5 Height (Inches): 7.00 Weight (Pounds): 230 General Appearance: WD/WN, no acute distress HEENT: normocephalic, atraumatic, anicteric, mucous membranes moist Respiratory/Chest: chest wall non-tender, lungs clear, normal breath sounds, no respiratory distress, no accessory muscle use Cardiovascular: normal peripheral pulses, normal rate, regular rhythm Abdomen: normal bowel sounds, soft, non tender, no organomegaly, non distended , no mass Extremities: no cyanosis, no clubbing Skin: no rash, ulcers, other - right big toe gangren Microbiology Date/Time Source Procedure Growth Status 05/19/16 06:00 Foot Right Gram Stain - Final Resulted 05/19/16 06:00 Foot Right Wound Culture - Preliminary Resulted 05/18/16 00:00 Leg Left Gram Stain - Final Resulted 05/18/16 00:00 Leg Left Wound Culture - Preliminary Resulted 05/17/16 07:49 Rectum VRE Culture - Preliminary Enterococcus Faecium - Vre Resulted Laboratory Tests Test 05/18/16 19:30 05/19/16 11:05 Prothrombin Time 14.8 SEC (9.30-11.50) H Prothromb Time International Ratio 1.4 (0.9-1.1) H Sodium Level 139 mEQ/L (135-145) Potassium Level 2.9 mEQ/L (3.4-4.9) L Chloride Level 93 mEQ/L (98-107) L Carbon Dioxide Level 34 mEQ/L (20-30) H Anion Gap 12 (5-15) Blood Urea Nitrogen 11 mg/dL (7-23) Creatinine 0.7 mg/dL (0.5-0.9) Estimat Glomerular Filtration Rate > 60 mL/min (>60) Glucose Level 164 mg/dL (74-106) H Calcium Level 9.0 mg/dL (8.6-10.2) Phosphorus Level 2.5 mg/dL (2.5-4.8) Magnesium Level 1.5 mg/dL (1.7-2.5) L Current Medications Medications (Trade) Dose Ordered Sig/Anh Route PRN Reason Start Time Stop Time Status Last Admin Dose Admin Acetaminophen (Tylenol) 650 mg Q4H PRN ORAL T>100.5 05/17/16 07:00 06/16/16 06:59 Al Hydroxide/Mg Hydroxide (Mylanta II) 30 ml Q6H PRN ORAL dyspepsia 05/17/16 07:00 06/16/16 06:59 Amlodipine Besylate (Norvasc) 5 mg DAILY ORAL 05/17/16 09:00 06/16/16 08:59 05/19/16 08:19 Atorvastatin Calcium (Lipitor) 40 mg BEDTIME ORAL 05/17/16 21:00 06/16/16 20:59 05/18/16 21:22 Carvedilol (Coreg) 50 mg EVERY 12 HOURS ORAL 05/17/16 21:00 06/16/16 20:59 05/19/16 08:19 Cefepime HCl/ Dextrose (Maxipime/D5W) 55 ml @ 110 mls/hr EVERY 12 HOURS IVPB 05/18/16 22:00 05/25/16 21:59 05/19/16 09:43 Collagenase (Santyl) 1 applic DAILY TOPIC 05/19/16 09:00 06/18/16 08:59 Dextrose (Dextrose 50%) STAT PRN IV Hypoglycemia 05/17/16 07:00 06/16/16 06:59 Furosemide (Lasix) 40 mg TWICE A DAY ORAL 05/17/16 09:00 06/16/16 08:59 05/19/16 08:20 Hydralazine HCl (Apresoline) 10 mg EVERY 6 HOURS ORAL 05/17/16 12:00 06/16/16 11:59 05/19/16 13:35 Insulin Aspart BEFORE MEALS AND HS SUBQ 05/17/16 11:30 06/16/16 11:29 05/19/16 06:48 Lisinopril (Prinivil) 20 mg DAILY ORAL 05/17/16 09:00 06/16/16 08:59 05/19/16 08:19 Lorazepam (Ativan 2mg/ml 1ml) 0.5 mg Q4H PRN IV For Anxiety 05/17/16 07:00 05/24/16 06:59 05/19/16 14:35 Metronidazole (Flagyl) 500 mg Q8HR ORAL 05/18/16 19:00 05/25/16 18:59 05/19/16 13:34 Morphine Sulfate (Morphine Sulfate) 1 mg Q4H PRN IVP PAIN 4-10 05/17/16 07:00 05/24/16 06:59 05/18/16 21:22 Ondansetron HCl (Zofran) 4 mg Q6H PRN IVP Nausea & Vomiting 05/17/16 07:00 06/16/16 06:59 Polyethylene Glycol (Miralax) 17 gm HSPRN PRN ORAL Constipation 05/17/16 21:00 06/16/16 20:59 Potassium Chloride (K-Dur) 40 meq ONCE ONCE ORAL 05/19/16 20:00 05/19/16 20:01 Sorbitol (Sorbitol) 60 ml ONCE ONCE ORAL 05/19/16 18:00 05/19/16 18:01 Vancomycin HCl 1 ea 1 ea DAILY PRN MISC . 05/18/16 14:30 06/17/16 14:29 Vancomycin HCl/ Dextrose (Vancomycin/D5W) 275 ml @ 183.708 mls/hr Q12HR@0400,1600 IVPB 05/19/16 04:00 05/24/16 03:59 05/19/16 03:42 Zolpidem Tartrate (Ambien) 5 mg HSPRN PRN ORAL Insomnia 05/17/16 21:00 06/16/16 20:59 05/19/16 00:36 Anju Judd M.D. May 19, 2016 16:58
--- NOTE | 2016-05-19 17:04 | Diagnostic Imaging Report ---
Indication: Gangrene of the right first toe, history of diabetes Technique: Sagittal, axial, and coronal fast spin echo STIR, sagittal and coronal T1 fast spin-echo images of the foot. Unable to obtain axial T1 fast spin-echo images due to patient inability to hold still despite sedation Comparison: None Findings: Exam is somewhat limited due to patient motion artifact. No definite osseous signal abnormality to suggest acute osteomyelitis demonstrated. There may be slight ulceration of the soft tissues of the distal first digit, although this area is not well demonstrated. No focal fluid collections are demonstrated. Impression: Limited exam. No definite marrow signal abnormality to suggest acute osteomyelitis. No evidence of soft tissue abscess.
--- NOTE | 2016-05-19 17:30 | Podiatric Progress Note ---
Assessment/Plan Patient Orin Longoria is a 66 year old female who was admitted on May 17, 2016 at 05: 50 with elevated INR Problems: (1) Open wound of both legs with complication (2) Toe gangrene (3) Diabetic foot ulcer (4) Bilateral leg ulcer Assessment/Plan - MRI inconclusive due to motion during imaging. Ordered right foot xray - Awaiting arterial studies - Continue IV antibiotics - Continue daily dressing changes - Surgery will be considered once patient is stabilized Subjective Reason for consult Bilateral lower extremity ulcerations Allergies: Coded Allergies: NO KNOWN ALLERGIES (Unverified Allergy, Unknown, 03/07/15) Subjective No nausea, vomiting, fevers, chills, or pain Objective Exam Last 24 Hour Vital Signs Date Time Temp Pulse Resp B/P Pulse Ox O2 Delivery O2 Flow Rate FiO2 05/19/16 13:35 156/73 05/19/16 12:00 96.4 70 20 156/73 98 Room Air 05/19/16 08:19 154/75 05/19/16 08:19 68 154/75 05/19/16 08:19 68 154/75 05/19/16 08:00 97.7 68 22 154/75 95 05/19/16 06:43 139/77 05/19/16 04:00 97.7 71 18 133/75 95 Room Air 05/19/16 00:36 127/71 05/19/16 00:00 97.9 63 20 127/71 96 Room Air 05/18/16 21:23 61 132/55 05/18/16 20:00 97.5 61 17 132/55 94 05/18/16 19:02 144/67 Laboratory Tests Test 05/18/16 19:30 05/19/16 11:05 Prothrombin Time 14.8 SEC (9.30-11.50) H Prothromb Time International Ratio 1.4 (0.9-1.1) H Sodium Level 139 mEQ/L (135-145) Potassium Level 2.9 mEQ/L (3.4-4.9) L Chloride Level 93 mEQ/L (98-107) L Carbon Dioxide Level 34 mEQ/L (20-30) H Anion Gap 12 (5-15) Blood Urea Nitrogen 11 mg/dL (7-23) Creatinine 0.7 mg/dL (0.5-0.9) Estimat Glomerular Filtration Rate > 60 mL/min (>60) Glucose Level 164 mg/dL (74-106) H Calcium Level 9.0 mg/dL (8.6-10.2) Phosphorus Level 2.5 mg/dL (2.5-4.8) Magnesium Level 1.5 mg/dL (1.7-2.5) L Microbiology Date/Time Source Procedure Growth Status 05/19/16 06:00 Foot Right Gram Stain - Final Resulted 05/19/16 06:00 Foot Right Wound Culture - Preliminary Resulted Exam Narrative No change in physical exam since yesterday Adán Singh DPM May 19, 2016 17:30
[2016-05-19 18:00] VITALS: BP 150/73
[2016-05-19] MEDS ORDERED: Sorbitol Solution UD 30ml ORAL ONE (18:00)
[2016-05-19 20:00] VITALS: BP 146/63
[2016-05-19] MEDS: Morphine Sulfate 2mg/ml Inj IVP PRN (21:26)
--- NOTE | 2016-05-19 22:36 | Pulmonology Progress Note ---
Assessment/Plan Problems: (1) Coagulopathy (2) Diabetic foot ulcer (3) Ventricular mural thrombus (4) HTN (hypertension) (5) DM (diabetes mellitus) (6) Anemia, chronic disease Assessment/Plan GI evaluation PT/ptt daily watch h/h antibiotics check cultures Subjective ROS Limited/Unobtainable: No Constitutional: Reports: no symptoms HEENT: Repors: no symptoms Allergies: Coded Allergies: NO KNOWN ALLERGIES (Unverified Allergy, Unknown, 03/07/15) Objective Last 24 Hour Vital Signs Date Time Temp Pulse Resp B/P Pulse Ox O2 Delivery O2 Flow Rate FiO2 05/19/16 21:27 74 146/63 05/19/16 20:00 97.7 74 20 146/63 90 Room Air 05/19/16 18:19 150/73 05/19/16 18:00 98.2 60 20 150/73 96 Room Air 05/19/16 13:35 156/73 05/19/16 12:00 96.4 70 20 156/73 98 Room Air 05/19/16 08:19 154/75 05/19/16 08:19 68 154/75 05/19/16 08:19 68 154/75 05/19/16 08:00 97.7 68 22 154/75 95 05/19/16 06:43 139/77 05/19/16 04:00 97.7 71 18 133/75 95 Room Air 05/19/16 00:36 127/71 05/19/16 00:00 97.9 63 20 127/71 96 Room Air Intake and Output 05/18/16 05/19/16 19:00 07:00 Intake Total 275 ml 1081.000 ml Balance 275 ml 1081.000 ml Intake Oral 420 ml IV Total 275 ml 661.000 ml # Voids 1 7 # Bowel Movements 6 Objective General Appearance: WD/WN HEENT: normocephalic, atraumatic Respiratory/Chest: chest wall non-tender, crackles/rales Cardiovascular: normal peripheral pulses, normal rate Abdomen: normal bowel sounds, soft, non tender Genitourinary: normal external genitalia Extremities: no cyanosis, no clubbing, left foot ganrene Skin: no rash 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 Microbiology Date/Time Source Procedure Growth Status 05/19/16 06:00 Foot Right Gram Stain - Final Resulted 05/19/16 06:00 Foot Right Wound Culture - Preliminary Resulted 05/18/16 00:00 Leg Left Gram Stain - Final Resulted 05/18/16 00:00 Leg Left Wound Culture - Preliminary Resulted 05/17/16 07:49 Rectum VRE Culture - Preliminary Enterococcus Faecium - Vre Resulted Laboratory Tests 05/19/16 11:05: Sodium Level 139, Potassium Level 2.9L, Chloride Level 93L, Carbon Dioxide Level 34H, Anion Gap 12, Blood Urea Nitrogen 11, Creatinine 0.7, Estimat Glomerular Filtration Rate > 60, Glucose Level 164H, Calcium Level 9.0, Phosphorus Level 2.5, Magnesium Level 1.5L 05/19/16 22:20: Sodium Level [Pending], Potassium Level [Pending], Chloride Level [Pending], Carbon Dioxide Level [Pending], Blood Urea Nitrogen [Pending], Creatinine [ Pending], Estimat Glomerular Filtration Rate [Pending], Glucose Level [Pending] , Calcium Level [Pending] Current Medications Medications (Trade) Dose Ordered Sig/Anh Route PRN Reason Start Time Stop Time Status Last Admin Dose Admin Acetaminophen (Tylenol) 650 mg Q4H PRN ORAL T>100.5 05/17/16 07:00 06/16/16 06:59 Al Hydroxide/Mg Hydroxide (Mylanta II) 30 ml Q6H PRN ORAL dyspepsia 05/17/16 07:00 06/16/16 06:59 Amlodipine Besylate (Norvasc) 5 mg DAILY ORAL 05/17/16 09:00 06/16/16 08:59 05/19/16 08:19 Atorvastatin Calcium (Lipitor) 40 mg BEDTIME ORAL 05/17/16 21:00 06/16/16 20:59 05/19/16 21:26 Carvedilol (Coreg) 50 mg EVERY 12 HOURS ORAL 05/17/16 21:00 06/16/16 20:59 05/19/16 21:27 Cefepime HCl/ Dextrose (Maxipime/D5W) 55 ml @ 110 mls/hr EVERY 12 HOURS IVPB 05/18/16 22:00 05/25/16 21:59 05/19/16 20:46 Collagenase (Santyl) 1 applic DAILY TOPIC 05/19/16 09:00 06/18/16 08:59 Dextrose (Dextrose 50%) STAT PRN IV Hypoglycemia 05/17/16 07:00 06/16/16 06:59 Furosemide (Lasix) 40 mg TWICE A DAY ORAL 05/17/16 09:00 06/16/16 08:59 05/19/16 18:19 Hydralazine HCl (Apresoline) 10 mg EVERY 6 HOURS ORAL 05/17/16 12:00 06/16/16 11:59 05/19/16 18:19 Insulin Aspart BEFORE MEALS AND HS SUBQ 05/17/16 11:30 06/16/16 11:29 05/19/16 21:29 Lisinopril (Prinivil) 20 mg DAILY ORAL 05/17/16 09:00 06/16/16 08:59 05/19/16 08:19 Lorazepam (Ativan 2mg/ml 1ml) 0.5 mg Q4H PRN IV For Anxiety 05/17/16 07:00 05/24/16 06:59 05/19/16 14:35 Metronidazole (Flagyl) 500 mg Q8HR ORAL 05/18/16 19:00 05/25/16 18:59 05/19/16 21:27 Morphine Sulfate (Morphine Sulfate) 1 mg Q4H PRN IVP PAIN 4-10 05/17/16 07:00 05/24/16 06:59 05/19/16 21:26 Ondansetron HCl (Zofran) 4 mg Q6H PRN IVP Nausea & Vomiting 05/17/16 07:00 06/16/16 06:59 Polyethylene Glycol (Miralax) 17 gm HSPRN PRN ORAL Constipation 05/17/16 21:00 06/16/16 20:59 Vancomycin HCl 1 ea 1 ea DAILY PRN MISC . 05/18/16 14:30 06/17/16 14:29 Vancomycin HCl/ Dextrose (Vancomycin/D5W) 275 ml @ 183.708 mls/hr Q12HR@0400,1600 IVPB 05/19/16 04:00 05/24/16 03:59 05/19/16 18:14 Zolpidem Tartrate (Ambien) 5 mg HSPRN PRN ORAL Insomnia 05/17/16 21:00 06/16/16 20:59 05/19/16 00:36 AMARIS POWERS May 19, 2016 22:36
[2016-05-19 22:51] LABS: ANION GAP 11 (5-15); CALCIUM 8.7 mg/dL (8.6-10.2); CARBON DIOXIDE 33 mEQ/L (20-30); CHLORIDE 96 mEQ/L (98-107); CREATININE 0.7 mg/dL (0.5-0.9); GLOMERULAR FILTRATION RATE > 60 mL/min (>60); HEMOLYSIS 0; POTASSIUM 3.4 mEQ/L (3.4-4.9); SODIUM 140 mEQ/L (135-145)
[2016-05-20] VITALS (10 sets, daily range): BP systolic 111–152; BP diastolic 46–76
[2016-05-20] MEDS: HydrALAZINE 10mg Tab ORAL SCH ×3 (00:27→17:31)
[2016-05-20] MEDS ORDERED: Sorbitol Solution UD 30ml ORAL ONE (00:30)
[2016-05-20] MEDS: Vancomycin 750 MG in D5W 275 ML IVPB SCH ×2 (03:50→17:28)
[2016-05-20] MEDS: metroNIDAZOLE 500mg tab ORAL SCH ×4 (06:00→21:23)
[2016-05-20] MEDS: NovoLOG Insulin Flexpen SUBQ SCH ×4 (06:30→21:28)
--- NOTE | 2016-05-20 06:49 | Anethesia Preoperative Eval ---
Anesthesia Pre-op PMH/ROS General Date of Evaluation: May 20, 2016 Time of Evaluation: 06:49 Anesthesiologist: keyshawn ASA Score: ASA 3 Mallampati Score Class I : Soft palate, uvula, fauces, pillars visible Class II: Soft palate, uvula, fauces visible Class III: Soft palate, base of uvula visible Class IV: Only hard plate visible Mallampati Classification: Class III Surgeon: maría Diagnosis: anemia Surgical Procedure: EGD/Colonoscoy Family History: no anesthesia problems Allergies: Coded Allergies: NO KNOWN ALLERGIES (Unverified Allergy, Unknown, 03/07/15) Medications: see eMAR Past Medical History Cardiovascular: Reports: CAD, HTN, arrhythmia Pulmonary: Denies: COPD, MANUEL, asthma, other Gastrointestinal/Genitourinary: Denies: CRI, ESRD, GERD, other 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: Denies: CVA, TIA, dementia, depression/anxiety, other Endocrine: Reports: DM - insulin dependent HEENT: Denies: BENTON (L), BENTON (R), cataract (L), cataract (R), glaucoma, other Hematology/Immune: Reports: anemia, bleeding disorder - on coumadin, inr 1.4 this am Musculoskeletal/Integumentary: Reports: DJD Other: obesity PMH Narrative: hypertension, heart failure, cardiomegaly, arrhythmia, diabetes, degenerative joint disease, history of ventricular tachycardia, on Coumadin, and history of anemia on chronic disease. PSxH Narrative: denies Anesthesia Pre-op Phys. Exam Physician Exam Last Vital Signs Date Time Temp Pulse Resp B/P Pulse Ox O2 Delivery O2 Flow Rate FiO2 05/20/16 04:00 98.1 74 18 152/70 97 Room Air Constitutional: NAD Neurologic: CN 2-12 intact Cardiovascular: RRR Respiratory: CTA Gastrointestinal: S/NT/ND Airway Exam Mallampati Classification 3 Mallampati Score: Class III MO: limited Neck: thick ROM: full Dentures: no lower, no upper Anesthesia Pre-op A/P Labs Chemistry Test 05/19/16 11:05 05/19/16 22:20 Sodium Level 139 mEQ/L (135-145) 140 mEQ/L (135-145) Potassium Level 2.9 mEQ/L (3.4-4.9) L 3.4 mEQ/L (3.4-4.9) Chloride Level 93 mEQ/L (98-107) L 96 mEQ/L (98-107) L Carbon Dioxide Level 34 mEQ/L (20-30) H 33 mEQ/L (20-30) H Anion Gap 12 (5-15) 11 (5-15) Blood Urea Nitrogen 11 mg/dL (7-23) 10 mg/dL (7-23) Creatinine 0.7 mg/dL (0.5-0.9) 0.7 mg/dL (0.5-0.9) Estimat Glomerular Filtration Rate > 60 mL/min (>60) > 60 mL/min (>60) Glucose Level 164 mg/dL (74-106) H 195 mg/dL (74-106) H Calcium Level 9.0 mg/dL (8.6-10.2) 8.7 mg/dL (8.6-10.2) Phosphorus Level 2.5 mg/dL (2.5-4.8) Magnesium Level 1.5 mg/dL (1.7-2.5) L Studies Pre-op Studies: EKG - sr Risk Assessment & Plan Plan: mac Status Change Before Surgery: No Pre-Antibiotics Drug: none VIGNESH CHANEY CRNA May 20, 2016 06:49
[2016-05-20] MEDS ORDERED: NS 550ML IV ONE (07:00)
[2016-05-20] MEDS ORDERED: LR 1000ml ONE (07:00)
[2016-05-20] MEDS ORDERED: Propofol 10mg/ml 20ml IV ONE (07:00)
[2016-05-20] MEDS ORDERED: Atropine Sulfate 0.4mg/ml inj ONE (07:00)
[2016-05-20] MEDS ORDERED: ePHEDrine 50mg/ml Inj ONE (07:00)
[2016-05-20] MEDS ORDERED: Lidocaine 1% MPF 10mg/ml 5ml ONE (07:00)
--- NOTE | 2016-05-20 07:07 | General Progress Note ---
Assessment/Plan Assessment/Plan Assessment - resolved coagulopathy - anemia - functional decline - HTN - DM - ventricular clot Recommendations - clears - golytely - EGD/Colon Monday at 0700 - OK to place on heparin gtt until MN tonight (defer to [facility]) - f/u K level today Subjective Allergies: Coded Allergies: NO KNOWN ALLERGIES (Unverified Allergy, Unknown, 03/07/15) Subjective no complaints on clears trying to take golytely Objective Last 24 Hour Vital Signs Date Time Temp Pulse Resp B/P Pulse Ox O2 Delivery O2 Flow Rate FiO2 05/20/16 06:00 144/73 05/20/16 04:00 98.1 74 18 152/70 97 Room Air 05/20/16 00:27 141/72 05/20/16 00:00 98.0 68 20 137/71 95 Room Air 05/19/16 21:27 74 146/63 05/19/16 20:00 97.7 74 20 146/63 90 Room Air 05/19/16 18:19 150/73 05/19/16 18:00 98.2 60 20 150/73 96 Room Air 05/19/16 13:35 156/73 05/19/16 12:00 96.4 70 20 156/73 98 Room Air 05/19/16 08:19 154/75 05/19/16 08:19 68 154/75 05/19/16 08:19 68 154/75 05/19/16 08:00 97.7 68 22 154/75 95 Intake and Output 05/19/16 05/20/16 19:00 07:00 Intake Total 350 ml 650.000 ml Balance 350 ml 650.000 ml Intake Oral 240 ml 45 ml IV Total 110 ml 605.000 ml # Voids 4 # Bowel Movements 2 5 Laboratory Tests 05/19/16 11:05: Sodium Level 139, Potassium Level 2.9L, Chloride Level 93L, Carbon Dioxide Level 34H, Anion Gap 12, Blood Urea Nitrogen 11, Creatinine 0.7, Estimat Glomerular Filtration Rate > 60, Glucose Level 164H, Calcium Level 9.0, Phosphorus Level 2.5, Magnesium Level 1.5L 05/19/16 22:20: Sodium Level 140, Potassium Level 3.4, Chloride Level 96L, Carbon Dioxide Level 33H, Anion Gap 11, Blood Urea Nitrogen 10, Creatinine 0.7, Estimat Glomerular Filtration Rate > 60, Glucose Level 195H, Calcium Level 8.7 05/20/16 03:05: Vancomycin Level Trough 17.4H Height (Feet): 5 Height (Inches): 7.00 Weight (Pounds): 223 Objective WDWN NCAT supple CTA RRR Soft ND NT (+) LE wounds SHRUTI DE ANDA May 20, 2016 07:07
--- NOTE | 2016-05-20 07:10 | Pre-Procedure Note/Attestation ---
Pre-Procedure Note/Attestation Complete Prior to Procedure Procedure Narrative: EGD/Colon Indications for Procedure Pre-Operative Diagnosis: Anemia Attestation I attest that I discussed the nature of the procedure; its benefits; risks and complications; and alternatives (and the risks and benefits of such alternatives ), prior to the procedure, with the patient (or the patient's legal sales representative leather goods). I attest that, if there was a reasonable possibility of needing a blood transfusion, the patient (or the patient's legal sales representative leather goods) was given the [facility] standardized written summary, pursuant to the Baljinder Melissa Blood Safety Act ([place] Health and Safety Code # 1645, as amended). I attest that I re-evaluated the patient just prior to the surgery and that there has been no change in the patient's H&P, except as documented below: SHRUTI DE ANDA May 20, 2016 07:10
--- NOTE | 2016-05-20 07:43 | Endoscopy Procedure Note ---
Endoscopy Procedure Note Indication for Procedure: anemia Procedures Performed: EGD, colonoscopy Operative Findings/Diagnosis: HH, gastritis, divertic, desc and sig polyps Specimen: yes Pt Tolerated Procedure Well: Yes Estimated Blood Loss: none Anesthesiologist: see report Anesthesia: MAC Medication Given: see anesthesia record Implant(s) used?: No 50 yrs or older w/o bx or poly: Not Applicable 10yrs. F/U not recommended: Not Applicable If not recommended, why?: SHRUTI DE ANDA May 20, 2016 07:43
--- NOTE | 2016-05-20 07:44 | Brief Operative Note ---
Immediate Post Operative Note Operative Note Chief Complaint: GIB, anemia Pre-op Diagnosis: Anemia Procedure: EGD/colon bx,bx Post-op Diagnosis: HH, Allyson, tics, polypx 2 Surgeon: kristi Anesthesiologist: see report Anesthesia: MAC Specimen: yes Complications: none Condition: stable Estimated Blood Loss: none Drains: none Implant(s) used?: No SHRUTI DE ANDA May 20, 2016 07:44
--- NOTE | 2016-05-20 08:24 | Immediate Post-Op Evaluation ---
Immediate Post-Op Evalulation Immediate Post-Op Evalulation Procedure: EGD/Colonoscopy Date of Evaluation: May 20, 2016 Time of Evaluation: 08:23 IV Fluids: 500 Blood Pressure Systolic: 139 Blood Pressure Diastolic: 40 Pulse Rate: 84 Respiratory Rate: 14 O2 Sat by Pulse Oximetry: 98 Temperature (Fahrenheit): 98.5 Nausea: No Vomiting: No Complications none Patient Status: patent, none - baselin Hydration Status: adequate Drug: none TWYLARILLIONVIGNESH CRNA May 20, 2016 08:24
--- NOTE | 2016-05-20 09:24 | 48 Hour Post Anesthesia Eval ---
Post Anesthesia Evaluation Procedure: EGD/Colonoscopy Date of Evaluation: May 20, 2016 Time of Evaluation: 09:24 Blood Pressure Systolic: 135 0: 50 Respiratory Rate: 14 O2 Sat by Pulse Oximetry: 98 Airway: patent Nausea: No Vomiting: No Hydration Status: adequate Cardiopulmonary Status: normal Mental Status/LOC: patient returned to baseline Post-Anesthesia Complications: none Follow-up care needed: N/A VIGNESH CHANEY CRNA May 20, 2016 09:24
[2016-05-20] MEDS ORDERED: Mylanta II UD 30ml ORAL PRN (10:00)
[2016-05-20] MEDS ORDERED: LORazepam Inj 2mg/ml 1ml IV PRN (10:00)
--- NOTE | 2016-05-20 10:13 | General Progress Note ---
Assessment/Plan Assessment/Plan ASSESSMENT: 1. Supratherapeutic INR likely secondary to Coumadin overdose. Improved to 1.4 , does not need FFP, have administered vit k again 2. Coagulopathy 2/2 coumadin for Intracardiac thrombosis. 3. Anemia of chronic disease 4. R.o GI bleed with scope per Dr. Lane. 5. Decreased hemoglobin and hematocrit, rule out GI bleed 6. Leukocytosis and neutrophilia, rule out infxn 7. Hypertension. 8. Cardiomegaly 9. History of chf PLAN: 1. Monitor counts. 2. Restart coumadin once inr procedure completed 3. GI procedure today, reported pending 4. The patient is currently without bleeding. 5. Appreciate Pulmonary Critical Care and Nephrology recs 6. Duplex of lower extremities negative for DVT 7. Staff Thank you, Lazarus Jean-Baptiste MD Subjective Constitutional: Reports: no symptoms HEENT: Reports: no symptoms Cardiovascular: Reports: no symptoms Respiratory: Reports: no symptoms Gastrointestinal/Abdominal: Reports: poor appetite Genitourinary: Reports: no symptoms 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: Reports: no symptoms Endocrine: Reports: no symptoms Hematologic/Lymphatic: Reports: anemia Allergies: Coded Allergies: NO KNOWN ALLERGIES (Unverified Allergy, Unknown, 03/07/15) Subjective s/p procedure this am, no overt bleeding reported Objective Last 24 Hour Vital Signs Date Time Temp Pulse Resp B/P Pulse Ox O2 Delivery O2 Flow Rate FiO2 05/20/16 09:24 14 98 05/20/16 09:05 97.3 72 20 132/63 95 Room Air 05/20/16 08:24 84 14 98 05/20/16 08:20 71 14 131/76 100 Simple Mask 6.0 05/20/16 08:10 71 15 151/67 100 Simple Mask 6.0 05/20/16 08:05 73 14 152/63 100 Simple Mask 6.0 05/20/16 08:03 98.5 80 13 139/46 100 Simple Mask 6.0 05/20/16 06:00 144/73 05/20/16 04:00 98.1 74 18 152/70 97 Room Air 05/20/16 00:27 141/72 05/20/16 00:00 98.0 68 20 137/71 95 Room Air 05/19/16 21:27 74 146/63 05/19/16 20:00 97.7 74 20 146/63 90 Room Air 05/19/16 18:19 150/73 05/19/16 18:00 98.2 60 20 150/73 96 Room Air 05/19/16 13:35 156/73 05/19/16 12:00 96.4 70 20 156/73 98 Room Air Intake and Output 05/19/16 05/20/16 19:00 07:00 Intake Total 350 ml 650.000 ml Balance 350 ml 650.000 ml Intake Oral 240 ml 45 ml IV Total 110 ml 605.000 ml # Voids 4 # Bowel Movements 2 5 Laboratory Tests 05/19/16 11:05: Sodium Level 139, Potassium Level 2.9L, Chloride Level 93L, Carbon Dioxide Level 34H, Anion Gap 12, Blood Urea Nitrogen 11, Creatinine 0.7, Estimat Glomerular Filtration Rate > 60, Glucose Level 164H, Calcium Level 9.0, Phosphorus Level 2.5, Magnesium Level 1.5L 05/19/16 22:20: Sodium Level 140, Potassium Level 3.4, Chloride Level 96L, Carbon Dioxide Level 33H, Anion Gap 11, Blood Urea Nitrogen 10, Creatinine 0.7, Estimat Glomerular Filtration Rate > 60, Glucose Level 195H, Calcium Level 8.7 05/20/16 03:05: Vancomycin Level Trough 17.4H Height (Feet): 5 Height (Inches): 7.00 Weight (Pounds): 223 General Appearance: no apparent distress EENT: TMs normal Neck: supple Cardiovascular: regular rhythm Respiratory/Chest: lungs clear Abdomen: soft Extremities: non-tender Edema: 1+ Leg (L), 1+ Leg (R) Edema: mild edema Neurologic: alert Skin: warm/dry Lazarus Jean-Baptiste May 20, 2016 10:13
[2016-05-20] MEDS: Cefepime HCl 1 GM in D5W 55 ML IVPB SCH ×2 (11:02→21:22)
[2016-05-20] MEDS: Lisinopril 20mg tab ORAL SCH (11:03)
[2016-05-20] MEDS: Furosemide 40mg tab ORAL SCH ×2 (11:03→17:32)
[2016-05-20] MEDS: Carvedilol 25mg Tab ORAL SCH ×2 (11:04→21:00)
[2016-05-20] MEDS: Morphine Sulfate 2mg/ml Inj IVP PRN ×3 (11:22→23:05)
[2016-05-20 11:32] LABS: BASOPHILS % (AUTO) 1.1 % (0.0-2.0); EOSINOPHILS % (AUTO) 0.6 % (0.0-3.0); LYMPHOCYTES % (AUTO) 9.2 % (20.0-45.0); MEAN CORPUSCULAR HEMOGLOBIN 26.6 PG (27.0-31.0); MEAN CORPUSCULAR HGB CONC 31.2 G/DL (32.0-36.0); MEAN CORPUSCULAR VOLUME 85 FL (80-99); MEAN PLATELET VOLUME 6.7 FL (6.5-10.1); MONOCYTES % (AUTO) 7.5 % (1.0-10.0); NEUTROPHILS % (AUTO) 81.6 % (45.0-75.0); PLATELET COUNT 362 K/UL (150-450); RED BLOOD COUNT 3.38 M/UL (4.20-5.40); RED CELL DISTRIBUTION WIDTH 15.5 % (11.6-14.8); WHITE BLOOD COUNT 13.6 K/UL (4.8-10.8)
[2016-05-20 11:50] LABS: INR 1.2 (0.9-1.1); PROTHROMBIN TIME 12.7 SEC (9.30-11.50)
[2016-05-20] MEDS ORDERED: HydrALAZINE 10mg Tab ORAL SCH (12:00)
--- NOTE | 2016-05-20 13:55 | Diagnostic Imaging Report ---
Indication: Pain Comparison: None Findings: 3 views of the right foot were obtained. Soft tissue air noted in the area of the hallux and first interspace. In the absence of recent surgery, gas due to soft tissue infection should be considered. Generalized soft tissue swelling is present. There is no obvious periostitis. However there is fairly marked periarticular erosions involving the MTP joints from the second through fifth toes. Impression: Suspected gas gangrene and periarticular erosions. Further evaluation with MRI is recommended
--- NOTE | 2016-05-20 14:38 | Cardiac Electrophysiology PN ---
Subjective Subjective [id number]. Bradycardia requiring atropine post colonoscopy. Decrease Coreg to 25 bid. Objective Last 24 Hour Vital Signs Date Time Temp Pulse Resp B/P Pulse Ox O2 Delivery O2 Flow Rate FiO2 05/20/16 13:26 151/72 05/20/16 12:38 97.5 66 20 151/72 96 Room Air 05/20/16 11:52 97.5 05/20/16 11:04 72 135/50 05/20/16 11:04 72 135/50 05/20/16 11:03 135/50 05/20/16 09:24 14 98 05/20/16 09:05 97.3 72 20 132/63 95 Room Air 05/20/16 08:24 84 14 98 05/20/16 08:20 71 14 131/76 100 Simple Mask 6.0 05/20/16 08:10 71 15 151/67 100 Simple Mask 6.0 05/20/16 08:05 73 14 152/63 100 Simple Mask 6.0 05/20/16 08:03 98.5 80 13 139/46 100 Simple Mask 6.0 05/20/16 06:00 144/73 05/20/16 04:00 98.1 74 18 152/70 97 Room Air 05/20/16 00:27 141/72 05/20/16 00:00 98.0 68 20 137/71 95 Room Air 05/19/16 21:27 74 146/63 05/19/16 20:00 97.7 74 20 146/63 90 Room Air 05/19/16 18:19 150/73 05/19/16 18:00 98.2 60 20 150/73 96 Room Air Intake and Output 05/19/16 05/20/16 19:00 07:00 Intake Total 350 ml 650.000 ml Balance 350 ml 650.000 ml Intake Oral 240 ml 45 ml IV Total 110 ml 605.000 ml # Voids 4 # Bowel Movements 2 5 Laboratory Tests Test 05/19/16 22:20 05/20/16 03:05 05/20/16 11:00 Sodium Level 140 mEQ/L (135-145) Potassium Level 3.4 mEQ/L (3.4-4.9) Chloride Level 96 mEQ/L (98-107) L Carbon Dioxide Level 33 mEQ/L (20-30) H Anion Gap 11 (5-15) Blood Urea Nitrogen 10 mg/dL (7-23) Creatinine 0.7 mg/dL (0.5-0.9) Estimat Glomerular Filtration Rate > 60 mL/min (>60) Glucose Level 195 mg/dL (74-106) H Calcium Level 8.7 mg/dL (8.6-10.2) Vancomycin Level Trough 17.4 ug/mL (5.0-12.0) H White Blood Count 13.6 K/UL (4.8-10.8) H Red Blood Count 3.38 M/UL (4.20-5.40) L Hemoglobin 9.0 G/DL (12.0-16.0) L Hematocrit 28.8 % (37.0-47.0) L Mean Corpuscular Volume 85 FL (80-99) Mean Corpuscular Hemoglobin 26.6 PG (27.0-31.0) L Mean Corpuscular Hemoglobin Concent 31.2 G/DL (32.0-36.0) L Red Cell Distribution Width 15.5 % (11.6-14.8) H Platelet Count 362 K/UL (150-450) Mean Platelet Volume 6.7 FL (6.5-10.1) Neutrophils (%) (Auto) 81.6 % (45.0-75.0) H Lymphocytes (%) (Auto) 9.2 % (20.0-45.0) L Monocytes (%) (Auto) 7.5 % (1.0-10.0) Eosinophils (%) (Auto) 0.6 % (0.0-3.0) Basophils (%) (Auto) 1.1 % (0.0-2.0) Prothrombin Time 12.7 SEC (9.30-11.50) H Prothromb Time International Ratio 1.2 (0.9-1.1) H Microbiology Date/Time Source Procedure Growth Status 05/18/16 19:30 Blood Blood Culture - Preliminary NO GROWTH AFTER 24 HOURS Resulted 05/18/16 19:20 Blood Blood Culture - Preliminary NO GROWTH AFTER 24 HOURS Resulted 05/19/16 06:00 Foot Right Gram Stain - Final Resulted 05/19/16 06:00 Wound Culture - Preliminary Gram Negative Bacillus 1 Resulted 05/18/16 00:00 Leg Left Gram Stain - Final Resulted 05/18/16 00:00 Wound Culture - Preliminary Gram Negative Bacillus 1 Gram Negative Bacillus 2 Gram Negative Bacillus 3 Resulted SHERRILL PENDLETON May 20, 2016 14:38
--- NOTE | 2016-05-20 15:10 | Infectious Diseases Prog Note ---
Assessment/Plan Problems: (1) Toe gangrene Assessment & Plan: wound is growing multiple organisms , but MRI is negative for osteomyelitis, blood culture is pending to rule out bacteremia, continue vancomycin, cefepime and flagyl empirically, speech teacher is consulted, recommend amputation of the big toe to eliminate the source of sepsis , may need vascular clearance before amputation.. (2) Open wound of both legs with complication Assessment & Plan: continue local wound care as per wound care service, and off loading , she will be started on wide spectrum antibiotics (3) Sepsis Assessment & Plan: due to the above, continue vancomycin, cefepime and metronidazol, await blood culture (4) Coagulopathy Assessment & Plan: due to comuadin, improving, monitor INR (5) DM (diabetes mellitus) Assessment & Plan: recommend tight glycemic control to keep blood glucose between 80-120 Subjective Constitutional: Reports: fatigue Neurologic: Reports: confusion, weakness Skin: Reports: other - right big toe gangren, ulcer Musculoskeletal: Reports: pain, swelling Allergies: Coded Allergies: NO KNOWN ALLERGIES (Unverified Allergy, Unknown, 03/07/15) Objective Vital Signs Last 24 Hour Vital Signs Date Time Temp Pulse Resp B/P Pulse Ox O2 Delivery O2 Flow Rate FiO2 05/20/16 13:26 151/72 05/20/16 12:38 97.5 66 20 151/72 96 Room Air 05/20/16 11:52 97.5 05/20/16 11:04 72 135/50 05/20/16 11:04 72 135/50 05/20/16 11:03 135/50 05/20/16 09:24 14 98 05/20/16 09:05 97.3 72 20 132/63 95 Room Air 05/20/16 08:24 84 14 98 05/20/16 08:20 71 14 131/76 100 Simple Mask 6.0 05/20/16 08:10 71 15 151/67 100 Simple Mask 6.0 05/20/16 08:05 73 14 152/63 100 Simple Mask 6.0 05/20/16 08:03 98.5 80 13 139/46 100 Simple Mask 6.0 05/20/16 06:00 144/73 05/20/16 04:00 98.1 74 18 152/70 97 Room Air 05/20/16 00:27 141/72 05/20/16 00:00 98.0 68 20 137/71 95 Room Air 05/19/16 21:27 74 146/63 05/19/16 20:00 97.7 74 20 146/63 90 Room Air 05/19/16 18:19 150/73 05/19/16 18:00 98.2 60 20 150/73 96 Room Air Height (Feet): 5 Height (Inches): 7.00 Weight (Pounds): 223 General Appearance: WD/WN, no acute distress HEENT: normocephalic, atraumatic, anicteric, mucous membranes moist Respiratory/Chest: chest wall non-tender, lungs clear, normal breath sounds, no respiratory distress Cardiovascular: normal peripheral pulses, normal rate, regular rhythm, no gallop/murmur Abdomen: normal bowel sounds, soft, non tender, no organomegaly, non distended , no mass, no scars Extremities: no clubbing, other - right big toe gangren with drainage and foul smell Skin: no rash, ulcers Microbiology Date/Time Source Procedure Growth Status 05/18/16 19:30 Blood Blood Culture - Preliminary NO GROWTH AFTER 24 HOURS Resulted 05/18/16 19:20 Blood Blood Culture - Preliminary NO GROWTH AFTER 24 HOURS Resulted 05/19/16 06:00 Foot Right Gram Stain - Final Resulted 05/19/16 06:00 Wound Culture - Preliminary Gram Negative Bacillus 1 Resulted 05/18/16 00:00 Leg Left Gram Stain - Final Resulted 05/18/16 00:00 Wound Culture - Preliminary Gram Negative Bacillus 1 Gram Negative Bacillus 2 Gram Negative Bacillus 3 Resulted Laboratory Tests Test 05/19/16 22:20 05/20/16 03:05 05/20/16 11:00 Sodium Level 140 mEQ/L (135-145) Potassium Level 3.4 mEQ/L (3.4-4.9) Chloride Level 96 mEQ/L (98-107) L Carbon Dioxide Level 33 mEQ/L (20-30) H Anion Gap 11 (5-15) Blood Urea Nitrogen 10 mg/dL (7-23) Creatinine 0.7 mg/dL (0.5-0.9) Estimat Glomerular Filtration Rate > 60 mL/min (>60) Glucose Level 195 mg/dL (74-106) H Calcium Level 8.7 mg/dL (8.6-10.2) Vancomycin Level Trough 17.4 ug/mL (5.0-12.0) H White Blood Count 13.6 K/UL (4.8-10.8) H Red Blood Count 3.38 M/UL (4.20-5.40) L Hemoglobin 9.0 G/DL (12.0-16.0) L Hematocrit 28.8 % (37.0-47.0) L Mean Corpuscular Volume 85 FL (80-99) Mean Corpuscular Hemoglobin 26.6 PG (27.0-31.0) L Mean Corpuscular Hemoglobin Concent 31.2 G/DL (32.0-36.0) L Red Cell Distribution Width 15.5 % (11.6-14.8) H Platelet Count 362 K/UL (150-450) Mean Platelet Volume 6.7 FL (6.5-10.1) Neutrophils (%) (Auto) 81.6 % (45.0-75.0) H Lymphocytes (%) (Auto) 9.2 % (20.0-45.0) L Monocytes (%) (Auto) 7.5 % (1.0-10.0) Eosinophils (%) (Auto) 0.6 % (0.0-3.0) Basophils (%) (Auto) 1.1 % (0.0-2.0) Prothrombin Time 12.7 SEC (9.30-11.50) H Prothromb Time International Ratio 1.2 (0.9-1.1) H Current Medications Medications (Trade) Dose Ordered Sig/Anh Route PRN Reason Start Time Stop Time Status Last Admin Dose Admin Acetaminophen (Tylenol) 650 mg Q4H PRN ORAL T>100.5 05/20/16 10:00 06/19/16 09:59 Al Hydroxide/Mg Hydroxide (Mylanta II) 30 ml Q6H PRN ORAL dyspepsia 05/20/16 10:00 06/19/16 09:59 Atorvastatin Calcium (Lipitor) 40 mg BEDTIME ORAL 05/20/16 21:00 06/19/16 20:59 Carvedilol (Coreg) 50 mg EVERY 12 HOURS ORAL 05/20/16 10:00 06/19/16 09:59 05/20/16 11:04 Cefepime HCl 1 gm/ Dextrose 55 ml @ 110 mls/hr EVERY 12 HOURS IVPB 05/20/16 10:00 05/27/16 09:59 05/20/16 11:02 Collagenase (Santyl) 1 applic DAILY TOPIC 05/20/16 10:00 06/19/16 09:59 05/20/16 10:00 Dextrose (Dextrose 50%) STAT PRN IV Hypoglycemia 05/21/16 07:00 06/20/16 06:59 Furosemide (Lasix) 40 mg TWICE A DAY ORAL 05/20/16 10:00 06/19/16 09:59 05/20/16 11:03 Hydralazine HCl (Apresoline) 25 mg EVERY 6 HOURS ORAL 05/20/16 18:00 06/19/16 17:59 Insulin Aspart (NovoLOG) BEFORE MEALS AND HS SUBQ 05/20/16 11:30 06/19/16 11:29 05/20/16 12:46 Lisinopril (Prinivil) 20 mg DAILY ORAL 05/20/16 10:00 06/19/16 09:59 05/20/16 11:03 Lorazepam (Ativan 2mg/ml 1ml) 0.5 mg Q4H PRN IV For Anxiety 05/20/16 10:00 05/27/16 09:59 Metronidazole (Flagyl) 500 mg Q8HR ORAL 05/20/16 09:45 05/27/16 09:44 05/20/16 13:26 Morphine Sulfate (Morphine Sulfate) 1 mg Q4H PRN IVP PAIN 4-10 05/20/16 10:00 05/27/16 09:59 05/20/16 11:22 Ondansetron HCl (Zofran) 4 mg Q6H PRN IVP Nausea & Vomiting 05/20/16 10:00 06/19/16 09:59 Polyethylene Glycol (Miralax) 17 gm HSPRN PRN ORAL Constipation 05/20/16 21:00 06/19/16 20:59 Vancomycin HCl (Vanco rx to dose) 1 ea DAILY PRN MISC . 05/21/16 09:00 06/20/16 08:59 Vancomycin HCl/ Dextrose (Vancomycin/D5W) 275 ml @ 183.708 mls/hr Q12HR@0400,1600 IVPB 05/20/16 16:00 05/25/16 15:59 Warfarin Sodium (Coumadin per pharmacy) 1 ea DAILY PRN MISC Per rx protocol 05/20/16 10:15 06/19/16 10:14 Warfarin Sodium (Coumadin) 5 mg COUMADIN ONCE ORAL 05/20/16 17:00 05/20/16 17:01 Zolpidem Tartrate (Ambien) 5 mg HSPRN PRN ORAL Insomnia 05/20/16 21:00 06/19/16 20:59 Anju Judd M.D. May 20, 2016 15:10
[2016-05-20] MEDS ORDERED: Warfarin Sodium 5mg ORAL ONE (17:00)
--- NOTE | 2016-05-20 20:08 | Podiatric Progress Note ---
Assessment/Plan Patient Orin Longoria is a 66 year old female who was admitted on May 17, 2016 at 05: 50 with elevated INR Problems: (1) Leukocytosis (2) Toe gangrene (3) Diabetic foot ulcer (4) Bilateral leg ulcer (5) Diabetic peripheral neuropathy Assessment/Plan - Patient experienced bradycardia after GI procedure today and was started on atropine. Considering a bedside debridement be performed and wait for patient to be optimized prior to operating room procedure. Cardiology following. Order placed for consent for right foot I&D with wound debridement - Continue daily dressing changes - Awaiting results for bilateral lower extremity arterial studies - Continue antibiotics per infectious disease specialist recommendations Subjective Reason for consult Right foot gangrene and bilateral leg wounds Allergies: Coded Allergies: NO KNOWN ALLERGIES (Unverified Allergy, Unknown, 03/07/15) Subjective Patient is sleepy and has a difficult time answering questions Objective Exam Last 24 Hour Vital Signs Date Time Temp Pulse Resp B/P Pulse Ox O2 Delivery O2 Flow Rate FiO2 05/20/16 17:31 118/64 05/20/16 16:00 97.9 68 18 118/64 95 Room Air 05/20/16 13:26 151/72 05/20/16 12:38 97.5 66 20 151/72 96 Room Air 05/20/16 12:02 69 05/20/16 11:52 97.5 05/20/16 11:04 72 135/50 05/20/16 11:04 72 135/50 05/20/16 11:03 135/50 05/20/16 09:47 69 05/20/16 09:24 14 98 05/20/16 09:05 97.3 72 20 132/63 95 Room Air 05/20/16 08:24 84 14 98 05/20/16 08:20 71 14 131/76 100 Simple Mask 6.0 05/20/16 08:10 71 15 151/67 100 Simple Mask 6.0 05/20/16 08:05 73 14 152/63 100 Simple Mask 6.0 05/20/16 08:03 98.5 80 13 139/46 100 Simple Mask 6.0 05/20/16 06:00 144/73 05/20/16 04:00 98.1 74 18 152/70 97 Room Air 05/20/16 00:27 141/72 05/20/16 00:00 98.0 68 20 137/71 95 Room Air 05/19/16 21:27 74 146/63 05/19/16 20:00 97.7 74 20 146/63 90 Room Air Laboratory Tests Test 05/19/16 22:20 05/20/16 03:05 05/20/16 11:00 Sodium Level 140 mEQ/L (135-145) Potassium Level 3.4 mEQ/L (3.4-4.9) Chloride Level 96 mEQ/L (98-107) L Carbon Dioxide Level 33 mEQ/L (20-30) H Anion Gap 11 (5-15) Blood Urea Nitrogen 10 mg/dL (7-23) Creatinine 0.7 mg/dL (0.5-0.9) Estimat Glomerular Filtration Rate > 60 mL/min (>60) Glucose Level 195 mg/dL (74-106) H Calcium Level 8.7 mg/dL (8.6-10.2) Vancomycin Level Trough 17.4 ug/mL (5.0-12.0) H White Blood Count 13.6 K/UL (4.8-10.8) H Red Blood Count 3.38 M/UL (4.20-5.40) L Hemoglobin 9.0 G/DL (12.0-16.0) L Hematocrit 28.8 % (37.0-47.0) L Mean Corpuscular Volume 85 FL (80-99) Mean Corpuscular Hemoglobin 26.6 PG (27.0-31.0) L Mean Corpuscular Hemoglobin Concent 31.2 G/DL (32.0-36.0) L Red Cell Distribution Width 15.5 % (11.6-14.8) H Platelet Count 362 K/UL (150-450) Mean Platelet Volume 6.7 FL (6.5-10.1) Neutrophils (%) (Auto) 81.6 % (45.0-75.0) H Lymphocytes (%) (Auto) 9.2 % (20.0-45.0) L Monocytes (%) (Auto) 7.5 % (1.0-10.0) Eosinophils (%) (Auto) 0.6 % (0.0-3.0) Basophils (%) (Auto) 1.1 % (0.0-2.0) Prothrombin Time 12.7 SEC (9.30-11.50) H Prothromb Time International Ratio 1.2 (0.9-1.1) H Microbiology Date/Time Source Procedure Growth Status 05/18/16 19:30 Blood Blood Culture - Preliminary NO GROWTH AFTER 24 HOURS Resulted 05/17/16 07:48 Nasal Nares MRSA Culture - Final NO METHICILLIN RESISTANT STAPH AUREUS... Complete 05/19/16 06:00 Foot Right Gram Stain - Final Resulted 05/19/16 06:00 Wound Culture - Preliminary Gram Negative Bacillus 1 Resulted Exam Narrative Right hallux necrotic wound that probes to bone and proximally to the intermetatarsal space. Malodor is improving. Bilateral leg wounds are stable IMAGING: Procedure: XRAY Foot Complete R Indication: Pain Comparison: None Findings: 3 views of the right foot were obtained. Soft tissue air noted in the area of the hallux and first interspace. In the absence of recent surgery, gas due to soft tissue infection should be considered. Generalized soft tissue swelling is present. There is no obvious periostitis. However there is fairly marked periarticular erosions involving the MTP joints from the second through fifth toes. Impression: Suspected gas gangrene and periarticular erosions. Further evaluation with MRI is recommended Procedure: MRI Right Foot WO Contrast Indication: Gangrene of the right first toe, history of diabetes Technique: Sagittal, axial, and coronal fast spin echo STIR, sagittal and coronal T1 fast spin-echo images of the foot. Unable to obtain axial T1 fast spin-echo images due to patient inability to hold still despite sedation Comparison: None Findings: Exam is somewhat limited due to patient motion artifact. No definite osseous signal abnormality to suggest acute osteomyelitis demonstrated. There may be slight ulceration of the soft tissues of the distal first digit, although this area is not well demonstrated. No focal fluid collections are demonstrated. Impression: Limited exam. No definite marrow signal abnormality to suggest acute osteomyelitis. No evidence of soft tissue abscess. Adán Singh DPM May 20, 2016 20:08
--- NOTE | 2016-05-20 20:59 | Consultation ---
DATE OF CONSULTATION: 05/20/2016 CARDIOLOGY CONSULTATION REFERRING PHYSICIAN: Brittny Campos M.D. REASON FOR CONSULTATION: Bradycardia post endoscopy requiring atropine injection. HISTORY OF PRESENT ILLNESS: The patient is a 66-year-old lady with history of hypertension and congestive heart failure. She has a history of CVA as well as recent stroke, who was hospitalized at [facility] and had rehab and was brought to [facility] for abnormal laboratories with INR of 12.1 and routine blood check. The patient was taking Coumadin for intracardiac thrombus. The patient was also found to have a right big toe gangrene with infection with draining pus material. The patient today underwent an endoscopy by Dr. Lane for gastrointestinal bleed and anemia with esophagogastroduodenoscopy and colonoscopy and at the end of the procedure the patient became bradycardic requiring atropine injection. The patient was then brought back to the telemetry floor. A Cardiology consultation was obtained for further evaluation and management. PAST MEDICAL HISTORY: 1. Hypertension. 2. History of congestive heart failure. 3. Insulin-dependent diabetes. 4. Hyperlipidemia. 5. Peripheral vascular disease. 6. History of ventricular tachycardia. FAMILY HISTORY: Noncontributory. SOCIAL HISTORY: No history of alcohol or drug use. REVIEW OF SYSTEMS: Negative other than what was mentioned in the history of present illness. PHYSICAL EXAMINATION: VITAL SIGNS: Blood pressure is 151/72, pulse 66, respirations 18, and temperature is 97.5 degrees. HEAD AND NECK: Shows normal jugular venous distention. LUNGS: Decreased breath sounds. CARDIOVASCULAR: Shows regular S1 and S2 with no gallop or murmur. ABDOMEN: Soft. EXTREMITIES: Have 1+ pitting edema as well as gangrene of the skin as well as right big toe. IMAGING STUDIES: Her echocardiogram showed ejection fraction of 45% to 50%, no pericardial effusion, moderate mitral regurgitation, moderate tricuspid regurgitation, and severe pulmonary hypertension. LABORATORY DATA: White count 13.6, hemoglobin 9, hematocrit 28.8, and platelet count of 262,000. Sodium 140, potassium 3.4, BUN 10, creatinine 0.7, and glucose of 195. TSH is 1.67. Vancomycin level is 17.4. INR was more than 15 on 05/17/2016 and today it is 1.2. ASSESSMENT AND PLAN: 1. Transient bradycardia. That was likely secondary to vagal effect of colonoscopy. The patient is on a very high dose of Coreg at 50 mg twice a day that is more than recommended dose. The dose will be decreased to 25 mg twice a day. Continue to watch the patient clinically. 2. History of cardiomyopathy with ejection fraction of 45%. Decrease the Coreg to standard dose of 25 mg twice a day and continue lisinopril 20 mg daily and Lasix 40 mg twice a day. I would discontinue Norvasc 5 mg daily and maximize hydralazine to 25 mg every six hours. 3. . The patient is on Coumadin per pharmacy. The INR was initially supratherapeutic. 4. Anemia. The patient underwent esophagogastroduodenoscopy and colonoscopy by Dr. Lane today, thus found hiatal hernia and two polyps. 5. Left foot gangrene with diabetic foot ulcer. 6. 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 7. Diabetes and chronic anemia. Thank you very much, Dr. Campos, for allowing me to participate in the care of this patient. Please do not hesitate to contact me for any questions regarding my evaluation. Josh Martinez M.D. DR: NALLELY JOB#: [id number] CC:
[2016-05-20] MEDS ORDERED: Miralax 17gm pkt ORAL PRN (21:00)
[2016-05-20] MEDS ORDERED: Zolpidem 5mg tab ORAL PRN (21:00)
--- NOTE | 2016-05-20 23:28 | Pulmonology Progress Note ---
Assessment/Plan Problems: (1) Coagulopathy (2) Diabetic foot ulcer (3) Ventricular mural thrombus (4) HTN (hypertension) (5) DM (diabetes mellitus) (6) Anemia, chronic disease Assessment/Plan monitor heart rate cardio evaluation appreciated f/u h/h, pt/ptt continue antibiotics Subjective ROS Limited/Unobtainable: No Interval Events: no new complains Allergies: Coded Allergies: NO KNOWN ALLERGIES (Unverified Allergy, Unknown, 03/07/15) Objective Last 24 Hour Vital Signs Date Time Temp Pulse Resp B/P Pulse Ox O2 Delivery O2 Flow Rate FiO2 05/20/16 21:00 78 111/56 05/20/16 20:00 97.6 78 18 111/56 99 Room Air 05/20/16 17:31 118/64 05/20/16 16:00 97.9 68 18 118/64 95 Room Air 05/20/16 13:26 151/72 05/20/16 12:38 97.5 66 20 151/72 96 Room Air 05/20/16 12:02 69 05/20/16 11:52 97.5 05/20/16 11:04 72 135/50 05/20/16 11:04 72 135/50 05/20/16 11:03 135/50 05/20/16 09:47 69 05/20/16 09:24 14 98 05/20/16 09:05 97.3 72 20 132/63 95 Room Air 05/20/16 08:24 84 14 98 05/20/16 08:20 71 14 131/76 100 Simple Mask 6.0 05/20/16 08:10 71 15 151/67 100 Simple Mask 6.0 05/20/16 08:05 73 14 152/63 100 Simple Mask 6.0 05/20/16 08:03 98.5 80 13 139/46 100 Simple Mask 6.0 05/20/16 06:00 144/73 05/20/16 04:00 98.1 74 18 152/70 97 Room Air 05/20/16 00:27 141/72 05/20/16 00:00 98.0 68 20 137/71 95 Room Air Intake and Output 05/19/16 05/20/16 19:00 07:00 Intake Total 350 ml 650.000 ml Balance 350 ml 650.000 ml Intake Oral 240 ml 45 ml IV Total 110 ml 605.000 ml # Voids 4 # Bowel Movements 2 5 Objective General Appearance: WD/WN HEENT: normocephalic, atraumatic Respiratory/Chest: chest wall non-tender, crackles/rales Cardiovascular: normal peripheral pulses, normal rate Abdomen: normal bowel sounds, soft, non tender Genitourinary: normal external genitalia Extremities: no cyanosis, no clubbing Skin: no rash 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 General Appearance: WD/WN Microbiology Date/Time Source Procedure Growth Status 05/18/16 19:30 Blood Blood Culture - Preliminary NO GROWTH AFTER 24 HOURS Resulted 05/18/16 19:20 Blood Blood Culture - Preliminary NO GROWTH AFTER 24 HOURS Resulted 05/19/16 06:00 Foot Right Gram Stain - Final Resulted 05/19/16 06:00 Wound Culture - Preliminary Gram Negative Bacillus 1 Resulted 05/18/16 00:00 Leg Left Gram Stain - Final Resulted 05/18/16 00:00 Wound Culture - Preliminary Gram Negative Bacillus 1 Gram Negative Bacillus 2 Gram Negative Bacillus 3 Resulted Laboratory Tests 05/20/16 03:05: Vancomycin Level Trough 17.4H 05/20/16 11:00: White Blood Count 13.6H, Red Blood Count 3.38L, Hemoglobin 9.0L, Hematocrit 28.8L, Mean Corpuscular Volume 85, Mean Corpuscular Hemoglobin 26.6L, Mean Corpuscular Hemoglobin Concent 31.2L, Red Cell Distribution Width 15.5H, Platelet Count 362, Mean Platelet Volume 6.7, Neutrophils (%) (Auto) 81.6H, Lymphocytes (%) (Auto) 9.2L, Monocytes (%) (Auto) 7.5, Eosinophils (%) (Auto) 0.6, Basophils (%) (Auto) 1.1, Prothrombin Time 12.7H, Prothromb Time International Ratio 1.2H Current Medications Medications (Trade) Dose Ordered Sig/Anh Route PRN Reason Start Time Stop Time Status Last Admin Dose Admin Acetaminophen (Tylenol) 650 mg Q4H PRN ORAL T>100.5 05/20/16 10:00 06/19/16 09:59 05/20/16 21:34 Al Hydroxide/Mg Hydroxide (Mylanta II) 30 ml Q6H PRN ORAL dyspepsia 05/20/16 10:00 06/19/16 09:59 Atorvastatin Calcium (Lipitor) 40 mg BEDTIME ORAL 05/20/16 21:00 06/19/16 20:59 05/20/16 21:23 Carvedilol (Coreg) 50 mg EVERY 12 HOURS ORAL 05/20/16 10:00 06/19/16 09:59 05/20/16 11:04 Cefepime HCl 1 gm/ Dextrose 55 ml @ 110 mls/hr EVERY 12 HOURS IVPB 05/20/16 10:00 05/27/16 09:59 05/20/16 21:22 Collagenase (Santyl) 1 applic DAILY TOPIC 05/20/16 10:00 06/19/16 09:59 05/20/16 10:00 Dextrose (Dextrose 50%) STAT PRN IV Hypoglycemia 05/21/16 07:00 06/20/16 06:59 Furosemide (Lasix) 40 mg TWICE A DAY ORAL 05/20/16 10:00 06/19/16 09:59 05/20/16 17:32 Hydralazine HCl (Apresoline) 25 mg EVERY 6 HOURS ORAL 05/20/16 18:00 06/19/16 17:59 05/20/16 17:31 Insulin Aspart (NovoLOG) BEFORE MEALS AND HS SUBQ 05/20/16 11:30 06/19/16 11:29 05/20/16 21:28 Lisinopril (Prinivil) 20 mg DAILY ORAL 05/20/16 10:00 06/19/16 09:59 05/20/16 11:03 Lorazepam (Ativan 2mg/ml 1ml) 0.5 mg Q4H PRN IV For Anxiety 05/20/16 10:00 05/27/16 09:59 Metronidazole (Flagyl) 500 mg Q8HR ORAL 05/20/16 09:45 05/27/16 09:44 05/20/16 21:23 Morphine Sulfate (Morphine Sulfate) 1 mg Q4H PRN IVP PAIN 4-10 05/20/16 10:00 05/27/16 09:59 05/20/16 23:05 Ondansetron HCl (Zofran) 4 mg Q6H PRN IVP Nausea & Vomiting 05/20/16 10:00 06/19/16 09:59 Polyethylene Glycol (Miralax) 17 gm HSPRN PRN ORAL Constipation 05/20/16 21:00 06/19/16 20:59 Vancomycin HCl (Vanco rx to dose) 1 ea DAILY PRN MISC . 05/21/16 09:00 06/20/16 08:59 Vancomycin HCl/ Dextrose (Vancomycin/D5W) 275 ml @ 183.708 mls/hr Q12HR@0400,1600 IVPB 05/20/16 16:00 05/25/16 15:59 05/20/16 17:28 Warfarin Sodium (Coumadin per pharmacy) 1 ea DAILY PRN MISC Per rx protocol 05/20/16 10:15 06/19/16 10:14 Zolpidem Tartrate (Ambien) 5 mg HSPRN PRN ORAL Insomnia 05/20/16 21:00 06/19/16 20:59 AMARIS POWERS May 20, 2016 23:28
[2016-05-21] VITALS: BP 121/56
[2016-05-21] MEDS: HydrALAZINE 10mg Tab ORAL SCH ×4 (01:02→17:01)
[2016-05-21] MEDS: Vancomycin 750 MG in D5W 275 ML IVPB SCH ×2 (03:53→16:49)
[2016-05-21] MEDS: Morphine Sulfate 2mg/ml Inj IVP PRN ×2 (03:55→16:49)
[2016-05-21 04:00] VITALS: BP 123/63
[2016-05-21] MEDS: metroNIDAZOLE 500mg tab ORAL SCH (06:05)
[2016-05-21] MEDS: NovoLOG Insulin Flexpen SUBQ SCH ×4 (06:41→21:11)
[2016-05-21 07:45] LABS: TROPONIN I < 0.30 ng/mL (<=0.30)
[2016-05-21 07:56] LABS: THYROID STIMULATING HORMONE 1.38 uIU/mL (0.300-4.500)
[2016-05-21 08:06] VITALS: BP 158/81
[2016-05-21 08:12] LABS: INR 1.3 (0.9-1.1); PROTHROMBIN TIME 13.2 SEC (9.30-11.50)
[2016-05-21] MEDS: Cefepime HCl 1 GM in D5W 55 ML IVPB SCH (09:19)
[2016-05-21] MEDS: Furosemide 40mg tab ORAL SCH ×2 (09:19→16:54)
[2016-05-21] MEDS: Lisinopril 20mg tab ORAL SCH (09:19)
[2016-05-21] MEDS: Carvedilol 25mg Tab ORAL SCH ×2 (09:19→21:08)
--- NOTE | 2016-05-21 09:39 | Podiatric Progress Note ---
Assessment/Plan Patient Orin Longoria is a 66 year old female who was admitted on May 17, 2016 at 05: 50 with elevated INR Problems: (1) Leukocytosis (2) Toe gangrene (3) Bilateral leg ulcer (4) Diabetic peripheral neuropathy (5) Diabetic foot ulcer Assessment/Plan - Consent was obtained and an excisional wound debridement was performed at the right hallux with using a 15 blade, scissors, and forceps. Wound was debrided to the level of bone. Loose necrotic tissue was debrided. The wound was packed with 1/4 inch packing gauze into the wound proximally and the 1st intermetatarsal space. A wet to dry dressing was applied using betadine. Will start daily dressing change with the same - Continue antibiotics per infectious disease specialist recommendations - Continue using Santyl at bilateral leg wounds - Will continue to monitor WBC trend - Awaiting arterial study results - Will wait for patient to be optimized prior to amputation Subjective Reason for consult Bilateral lower extremity wounds and right hallux gangrene Allergies: Coded Allergies: NO KNOWN ALLERGIES (Unverified Allergy, Unknown, 03/07/15) Subjective Patient is sleepy currently. However, I had a detailed conversation with her daughter and mother and discussed the management of her bilateral lower extremity wounds with them Objective Exam Last 24 Hour Vital Signs Date Time Temp Pulse Resp B/P Pulse Ox O2 Delivery O2 Flow Rate FiO2 05/21/16 09:19 158/81 05/21/16 09:19 74 158/81 05/21/16 08:06 96.1 74 20 158/81 100 Room Air 05/21/16 06:06 125/65 05/21/16 04:00 75 05/21/16 04:00 97.7 72 18 123/63 93 Room Air 05/21/16 01:02 121/56 05/21/16 00:00 97.0 65 18 121/56 94 Room Air 05/21/16 00:00 68 05/20/16 21:00 78 111/56 05/20/16 20:00 97.6 78 18 111/56 99 Room Air 05/20/16 17:31 118/64 05/20/16 16:00 97.9 68 18 118/64 95 Room Air 05/20/16 13:26 151/72 05/20/16 12:38 97.5 66 20 151/72 96 Room Air 05/20/16 12:02 69 05/20/16 11:52 97.5 05/20/16 11:04 72 135/50 05/20/16 11:04 72 135/50 05/20/16 11:03 135/50 05/20/16 09:47 69 Laboratory Tests Test 05/20/16 11:00 05/21/16 05:00 White Blood Count 13.6 K/UL (4.8-10.8) H Red Blood Count 3.38 M/UL (4.20-5.40) L Hemoglobin 9.0 G/DL (12.0-16.0) L Hematocrit 28.8 % (37.0-47.0) L Mean Corpuscular Volume 85 FL (80-99) Mean Corpuscular Hemoglobin 26.6 PG (27.0-31.0) L Mean Corpuscular Hemoglobin Concent 31.2 G/DL (32.0-36.0) L Red Cell Distribution Width 15.5 % (11.6-14.8) H Platelet Count 362 K/UL (150-450) Mean Platelet Volume 6.7 FL (6.5-10.1) Neutrophils (%) (Auto) 81.6 % (45.0-75.0) H Lymphocytes (%) (Auto) 9.2 % (20.0-45.0) L Monocytes (%) (Auto) 7.5 % (1.0-10.0) Eosinophils (%) (Auto) 0.6 % (0.0-3.0) Basophils (%) (Auto) 1.1 % (0.0-2.0) Prothrombin Time 12.7 SEC (9.30-11.50) H 13.2 SEC (9.30-11.50) H Prothromb Time International Ratio 1.2 (0.9-1.1) H 1.3 (0.9-1.1) H Troponin I < 0.30 ng/mL (<=0.30) Thyroid Stimulating Hormone (TSH) 1.380 uIU/mL (0.300-4.500) Free Thyroxine 1.65 ng/dL (0.86-1.85) Microbiology Date/Time Source Procedure Growth Status 05/18/16 19:30 Blood Blood Culture - Preliminary NO GROWTH AFTER 24 HOURS Resulted 05/17/16 07:48 Nasal Nares MRSA Culture - Final NO METHICILLIN RESISTANT STAPH AUREUS... Complete 05/19/16 06:00 Foot Right Gram Stain - Final Resulted 05/19/16 06:00 Wound Culture - Preliminary Gram Negative Bacillus 1 Resulted Exam Narrative Right hallux with gangrene and malodorous wound that probes to bone and the first intermetatarsal space. Loose necrotic tissue surrounding the wound. Bilateral leg wounds are stable Adán Singh DPM May 21, 2016 09:39
[2016-05-21 11:30] VITALS: BP 144/71
--- NOTE | 2016-05-21 12:40 | Pulmonology Progress Note ---
Assessment/Plan Problems: (1) Coagulopathy (2) Diabetic foot ulcer (3) Ventricular mural thrombus (4) HTN (hypertension) (5) DM (diabetes mellitus) (6) Anemia, chronic disease Assessment/Plan monitor heart rate cardio evaluation appreciated f/u h/h, pt/ptt continue antibiotics awaiting vascular studies episodes of bradycardia Subjective ROS Limited/Unobtainable: No Constitutional: Reports: no symptoms Allergies: Coded Allergies: NO KNOWN ALLERGIES (Unverified Allergy, Unknown, 03/07/15) Objective Last 24 Hour Vital Signs Date Time Temp Pulse Resp B/P Pulse Ox O2 Delivery O2 Flow Rate FiO2 05/21/16 11:30 96.9 67 20 144/71 99 Room Air 05/21/16 09:19 158/81 05/21/16 09:19 74 158/81 05/21/16 08:06 96.1 74 20 158/81 100 Room Air 05/21/16 06:06 125/65 05/21/16 04:00 75 05/21/16 04:00 97.7 72 18 123/63 93 Room Air 05/21/16 01:02 121/56 05/21/16 00:00 97.0 65 18 121/56 94 Room Air 05/21/16 00:00 68 05/20/16 21:00 78 111/56 05/20/16 20:00 97.6 78 18 111/56 99 Room Air 05/20/16 17:31 118/64 05/20/16 16:00 97.9 68 18 118/64 95 Room Air 05/20/16 13:26 151/72 Intake and Output 05/20/16 05/21/16 19:00 07:00 Intake Total 803.708 ml 888.708 ml Output Total 0 ml Balance 803.708 ml 888.708 ml Intake Oral 360 ml 320 ml IV Total 443.708 ml 568.708 ml Estimated Blood Loss 0 ml Objective General Appearance: WD/WN HEENT: normocephalic, atraumatic Respiratory/Chest: chest wall non-tender, crackles/rales Cardiovascular: normal peripheral pulses, normal rate Abdomen: normal bowel sounds, soft, non tender Genitourinary: normal external genitalia Extremities: no cyanosis, no clubbing, ulers and gangrene Skin: no rash 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 Microbiology Date/Time Source Procedure Growth Status 05/18/16 19:30 Blood Blood Culture - Preliminary NO GROWTH AFTER 24 HOURS Resulted 05/18/16 19:20 Blood Blood Culture - Preliminary NO GROWTH AFTER 24 HOURS Resulted 05/19/16 06:00 Foot Right Gram Stain - Final Resulted 05/19/16 06:00 Wound Culture - Preliminary Gram Negative Bacillus 1 Gram Negative Bacillus 2 Gram Negative Bacillus 3 Resulted Laboratory Tests 05/21/16 05:00: Prothrombin Time 13.2H, Prothromb Time International Ratio 1.3H, Troponin I < 0.30, Thyroid Stimulating Hormone (TSH) 1.380, Free Thyroxine 1.65 Current Medications Medications (Trade) Dose Ordered Sig/Anh Route PRN Reason Start Time Stop Time Status Last Admin Dose Admin Acetaminophen (Tylenol) 650 mg Q4H PRN ORAL T>100.5 05/20/16 10:00 06/19/16 09:59 05/20/16 21:34 Al Hydroxide/Mg Hydroxide (Mylanta II) 30 ml Q6H PRN ORAL dyspepsia 05/20/16 10:00 06/19/16 09:59 Atorvastatin Calcium (Lipitor) 40 mg BEDTIME ORAL 05/20/16 21:00 06/19/16 20:59 05/20/16 21:23 Carvedilol (Coreg) 50 mg EVERY 12 HOURS ORAL 05/20/16 10:00 06/19/16 09:59 05/21/16 09:19 Cefepime HCl 1 gm/ Dextrose 55 ml @ 110 mls/hr EVERY 12 HOURS IVPB 05/20/16 10:00 05/27/16 09:59 05/21/16 09:19 Collagenase (Santyl) 1 applic DAILY TOPIC 05/20/16 10:00 06/19/16 09:59 05/21/16 09:19 Dextrose (Dextrose 50%) STAT PRN IV Hypoglycemia 05/21/16 07:00 06/20/16 06:59 Furosemide (Lasix) 40 mg TWICE A DAY ORAL 05/20/16 10:00 06/19/16 09:59 05/21/16 09:19 Hydralazine HCl (Apresoline) 25 mg EVERY 6 HOURS ORAL 05/20/16 18:00 06/19/16 17:59 05/21/16 06:06 Insulin Aspart (NovoLOG) BEFORE MEALS AND HS SUBQ 05/20/16 11:30 06/19/16 11:29 05/21/16 06:41 Lisinopril (Prinivil) 20 mg DAILY ORAL 05/20/16 10:00 06/19/16 09:59 05/21/16 09:19 Lorazepam (Ativan 2mg/ml 1ml) 0.5 mg Q4H PRN IV For Anxiety 05/20/16 10:00 05/27/16 09:59 05/21/16 02:07 Metronidazole (Flagyl) 500 mg Q8HR ORAL 05/20/16 09:45 05/27/16 09:44 05/21/16 06:05 Morphine Sulfate (Morphine Sulfate) 1 mg Q4H PRN IVP PAIN 405/20/16 10:00 05/27/16 09:59 05/21/16 03:55 Ondansetron HCl (Zofran) 4 mg Q6H PRN IVP Nausea & Vomiting 05/20/16 10:00 06/19/16 09:59 Polyethylene Glycol (Miralax) 17 gm HSPRN PRN ORAL Constipation 05/20/16 21:00 06/19/16 20:59 Vancomycin HCl (Vanco rx to dose) 1 ea DAILY PRN MISC . 05/21/16 09:00 06/20/16 08:59 Vancomycin HCl/ Dextrose (Vancomycin/D5W) 275 ml @ 183.708 mls/hr Q12HR@0400,1600 IVPB 05/20/16 16:00 05/25/16 15:59 05/21/16 03:53 Warfarin Sodium (Coumadin per pharmacy) 1 ea DAILY PRN MISC Per rx protocol 05/20/16 10:15 06/19/16 10:14 Zolpidem Tartrate (Ambien) 5 mg HSPRN PRN ORAL Insomnia 05/20/16 21:00 06/19/16 20:59 AMARIS POWERS May 21, 2016 12:40
--- NOTE | 2016-05-21 13:11 | Infectious Diseases Prog Note ---
Assessment/Plan Problems: (1) Toe gangrene Assessment & Plan: wound is growing multiple organisms , but MRI is negative for osteomyelitis, blood culture is pending to rule out bacteremia, continue vancomycin, will switch cefepime and flagyl to zosyn to cover for ESBL producine E coli , professor of practice is consulted, recommend amputation of the big toe to eliminate the source of sepsis , may need vascular clearance before amputation.. (2) Open wound of both legs with complication Assessment & Plan: continue local wound care as per wound care service, and off loading , she will be started on wide spectrum antibiotics (3) Sepsis Assessment & Plan: due to the above, continue vancomycin, will switch cefepime and metronidazol to zosyn , await blood culture (4) Coagulopathy Assessment & Plan: due to comuadin, improving, monitor INR (5) DM (diabetes mellitus) Assessment & Plan: recommend tight glycemic control to keep blood glucose between 80-120 Subjective Constitutional: Reports: anorexia, fatigue Neurologic: Reports: confusion, weakness Skin: Reports: other - right toe gangren, ulcer Allergies: Coded Allergies: NO KNOWN ALLERGIES (Unverified Allergy, Unknown, 03/07/15) All Systems: reviewed and negative except above Objective Vital Signs Last 24 Hour Vital Signs Date Time Temp Pulse Resp B/P Pulse Ox O2 Delivery O2 Flow Rate FiO2 05/21/16 11:30 96.9 67 20 144/71 99 Room Air 05/21/16 09:19 158/81 05/21/16 09:19 74 158/81 05/21/16 08:06 96.1 74 20 158/81 100 Room Air 05/21/16 06:06 125/65 05/21/16 04:00 75 05/21/16 04:00 97.7 72 18 123/63 93 Room Air 05/21/16 01:02 121/56 05/21/16 00:00 97.0 65 18 121/56 94 Room Air 05/21/16 00:00 68 05/20/16 21:00 78 111/56 05/20/16 20:00 97.6 78 18 111/56 99 Room Air 05/20/16 17:31 118/64 05/20/16 16:00 97.9 68 18 118/64 95 Room Air 05/20/16 13:26 151/72 Height (Feet): 5 Height (Inches): 7.00 Weight (Pounds): 223 General Appearance: WD/WN, no acute distress HEENT: normocephalic, atraumatic, anicteric, mucous membranes moist Respiratory/Chest: chest wall non-tender, normal breath sounds, no respiratory distress, no accessory muscle use, decreased breath sounds Cardiovascular: normal peripheral pulses, normal rate, regular rhythm Abdomen: normal bowel sounds, soft, non tender, no organomegaly, non distended Extremities: no cyanosis, no clubbing Skin: no rash, no lesions, ulcers, other - right toe gangren with foul smell Microbiology Date/Time Source Procedure Growth Status 05/18/16 19:30 Blood Blood Culture - Preliminary NO GROWTH AFTER 24 HOURS Resulted 05/18/16 19:20 Blood Blood Culture - Preliminary NO GROWTH AFTER 24 HOURS Resulted 05/19/16 06:00 Foot Right Gram Stain - Final Resulted 05/19/16 06:00 Wound Culture - Preliminary Gram Negative Bacillus 1 Gram Negative Bacillus 2 Gram Negative Bacillus 3 Resulted Laboratory Tests Test 05/21/16 05:00 Prothrombin Time 13.2 SEC (9.30-11.50) H Prothromb Time International Ratio 1.3 (0.9-1.1) H Troponin I < 0.30 ng/mL (<=0.30) Thyroid Stimulating Hormone (TSH) 1.380 uIU/mL (0.300-4.500) Free Thyroxine 1.65 ng/dL (0.86-1.85) Current Medications Medications (Trade) Dose Ordered Sig/Anh Route PRN Reason Start Time Stop Time Status Last Admin Dose Admin Acetaminophen (Tylenol) 650 mg Q4H PRN ORAL T>100.5 05/20/16 10:00 06/19/16 09:59 05/20/16 21:34 Al Hydroxide/Mg Hydroxide (Mylanta II) 30 ml Q6H PRN ORAL dyspepsia 05/20/16 10:00 06/19/16 09:59 Atorvastatin Calcium (Lipitor) 40 mg BEDTIME ORAL 05/20/16 21:00 06/19/16 20:59 05/20/16 21:23 Carvedilol (Coreg) 25 mg EVERY 12 HOURS ORAL 05/21/16 21:00 06/20/16 20:59 UNV Cefepime HCl 1 gm/ Dextrose 55 ml @ 110 mls/hr EVERY 12 HOURS IVPB 05/20/16 10:00 05/27/16 09:59 05/21/16 09:19 Collagenase (Santyl) 1 applic DAILY TOPIC 05/20/16 10:00 06/19/16 09:59 05/21/16 09:19 Dextrose (Dextrose 50%) STAT PRN IV Hypoglycemia 05/21/16 07:00 06/20/16 06:59 Furosemide (Lasix) 40 mg TWICE A DAY ORAL 05/20/16 10:00 06/19/16 09:59 05/21/16 09:19 Hydralazine HCl (Apresoline) 25 mg EVERY 6 HOURS ORAL 05/20/16 18:00 06/19/16 17:59 05/21/16 06:06 Insulin Aspart (NovoLOG) BEFORE MEALS AND HS SUBQ 05/20/16 11:30 06/19/16 11:29 05/21/16 06:41 Lisinopril (Prinivil) 20 mg DAILY ORAL 05/20/16 10:00 06/19/16 09:59 05/21/16 09:19 Lorazepam (Ativan 2mg/ml 1ml) 0.5 mg Q4H PRN IV For Anxiety 05/20/16 10:00 05/27/16 09:59 05/21/16 02:07 Metronidazole (Flagyl) 500 mg Q8HR ORAL 05/20/16 09:45 05/27/16 09:44 05/21/16 06:05 Morphine Sulfate (Morphine Sulfate) 1 mg Q4H PRN IVP PAIN 4-10 05/20/16 10:00 05/27/16 09:59 05/21/16 03:55 Ondansetron HCl (Zofran) 4 mg Q6H PRN IVP Nausea & Vomiting 05/20/16 10:00 06/19/16 09:59 Polyethylene Glycol (Miralax) 17 gm HSPRN PRN ORAL Constipation 05/20/16 21:00 06/19/16 20:59 Vancomycin HCl (Vanco rx to dose) 1 ea DAILY PRN MISC . 05/21/16 09:00 06/20/16 08:59 Vancomycin HCl/ Dextrose (Vancomycin/D5W) 275 ml @ 183.708 mls/hr Q12HR@0400,1600 IVPB 05/20/16 16:00 05/25/16 15:59 05/21/16 03:53 Warfarin Sodium (Coumadin per pharmacy) 1 ea DAILY PRN MISC Per rx protocol 05/20/16 10:15 06/19/16 10:14 Zolpidem Tartrate (Ambien) 5 mg HSPRN PRN ORAL Insomnia 05/20/16 21:00 06/19/16 20:59 Anju Judd M.D. May 21, 2016 13:11
--- NOTE | 2016-05-21 13:31 | General Progress Note ---
Assessment/Plan Assessment/Plan Assessment - gastritis, colon polyp - anemia - stable - functional decline - HTN - DM - ventricular clot Recommendations - push po - OK for anticoagulation from GI standpoint - follow labs Subjective Allergies: Coded Allergies: NO KNOWN ALLERGIES (Unverified Allergy, Unknown, 03/07/15) Subjective no complaints poor po no abd complaints Objective Last 24 Hour Vital Signs Date Time Temp Pulse Resp B/P Pulse Ox O2 Delivery O2 Flow Rate FiO2 05/21/16 11:30 96.9 67 20 144/71 99 Room Air 05/21/16 09:19 158/81 05/21/16 09:19 74 158/81 05/21/16 08:06 96.1 74 20 158/81 100 Room Air 05/21/16 06:06 125/65 05/21/16 04:00 75 05/21/16 04:00 97.7 72 18 123/63 93 Room Air 05/21/16 01:02 121/56 05/21/16 00:00 97.0 65 18 121/56 94 Room Air 05/21/16 00:00 68 05/20/16 21:00 78 111/56 05/20/16 20:00 97.6 78 18 111/56 99 Room Air 05/20/16 17:31 118/64 05/20/16 16:00 97.9 68 18 118/64 95 Room Air Intake and Output 05/20/16 05/21/16 19:00 07:00 Intake Total 803.708 ml 888.708 ml Output Total 0 ml Balance 803.708 ml 888.708 ml Intake Oral 360 ml 320 ml IV Total 443.708 ml 568.708 ml Estimated Blood Loss 0 ml Laboratory Tests 05/21/16 05:00: Prothrombin Time 13.2H, Prothromb Time International Ratio 1.3H, Troponin I < 0.30, Thyroid Stimulating Hormone (TSH) 1.380, Free Thyroxine 1.65 Height (Feet): 5 Height (Inches): 7.00 Weight (Pounds): 223 Objective WDWN NCAT supple CTA RRR Soft ND NT (+) LE wounds TOMASAROBERTARTEMMARVINLINO May 21, 2016 13:31
--- NOTE | 2016-05-21 14:21 | Cardiac Electrophysiology PN ---
Assessment/Plan Assessment/Plan 1. Transient bradycardia likely secondary to vagal effect of colonoscopy and very high dose of Coreg 50 mg twice a day.Decreased to 25 mg twice a day. Continue to watch the patient clinically. 2. History of cardiomyopathy with ejection fraction of 45%. Continue lisinopril 20 mg daily, Coreg 25 bid and Lasix 40 mg twice a day and hydralazine 25 mg every six hours. 3. 15 beats of NSVT. Rule out for OR. Schedule for nuclear stress test on Monday . 4. Anemia. The patient underwent esophagogastroduodenoscopy and colonoscopy by Dr. Lane , found hiatal hernia and two polyps. 5. Left foot gangrene with diabetic foot ulcer. 6. Intracardiac mural thrombus on Coumadin. 7. Diabetes and chronic anemia. DW RN Subjective Subjective Comfortable in NAD. Bradycardia requiring atropine post colonoscopy. No further with decreasing Coreg to 25 bid.Had 15 beats of NSVT. Objective Last 24 Hour Vital Signs Date Time Temp Pulse Resp B/P Pulse Ox O2 Delivery O2 Flow Rate FiO2 05/21/16 13:40 144/71 05/21/16 11:30 96.9 67 20 144/71 99 Room Air 05/21/16 09:19 158/81 05/21/16 09:19 74 158/81 05/21/16 08:06 96.1 74 20 158/81 100 Room Air 05/21/16 06:06 125/65 05/21/16 04:00 75 05/21/16 04:00 97.7 72 18 123/63 93 Room Air 05/21/16 01:02 121/56 05/21/16 00:00 97.0 65 18 121/56 94 Room Air 05/21/16 00:00 68 05/20/16 21:00 78 111/56 05/20/16 20:00 97.6 78 18 111/56 99 Room Air 05/20/16 17:31 118/64 05/20/16 16:00 97.9 68 18 118/64 95 Room Air Intake and Output 05/20/16 05/21/16 19:00 07:00 Intake Total 803.708 ml 888.708 ml Output Total 0 ml Balance 803.708 ml 888.708 ml Intake Oral 360 ml 320 ml IV Total 443.708 ml 568.708 ml Estimated Blood Loss 0 ml Laboratory Tests Test 05/21/16 05:00 Prothrombin Time 13.2 SEC (9.30-11.50) H Prothromb Time International Ratio 1.3 (0.9-1.1) H Troponin I < 0.30 ng/mL (<=0.30) Thyroid Stimulating Hormone (TSH) 1.380 uIU/mL (0.300-4.500) Free Thyroxine 1.65 ng/dL (0.86-1.85) Microbiology Date/Time Source Procedure Growth Status 05/18/16 19:30 Blood Blood Culture - Preliminary NO GROWTH AFTER 24 HOURS Resulted 05/18/16 19:20 Blood Blood Culture - Preliminary NO GROWTH AFTER 24 HOURS Resulted 05/19/16 06:00 Foot Right Gram Stain - Final Resulted 05/19/16 06:00 Wound Culture - Preliminary Gram Negative Bacillus 1 Gram Negative Bacillus 2 Gram Negative Bacillus 3 Resulted Objective HEAD AND NECK: Shows normal jugular venous distention. LUNGS: Decreased breath sounds. CARDIOVASCULAR: Shows regular S1 and S2 with no gallop or murmur. ABDOMEN: Soft. EXTREMITIES: Have 1+ pitting edema as well as gangrene of the skin as well as right big toe SHERRILL PENDLETON May 21, 2016 14:21
--- NOTE | 2016-05-21 14:31 | General Progress Note ---
Assessment/Plan Problem List: (1) Dizziness ICD Codes: R42 - Dizziness and giddiness SNOMED: 177930291 (2) HTN (hypertension) ICD Codes: I10 - Essential (primary) hypertension SNOMED: 87944774 (3) DM (diabetes mellitus) ICD Codes: E11.9 - Type 2 diabetes mellitus without complications SNOMED: 15524319 (4) Anemia, chronic disease ICD Codes: D63.8 - Anemia in other chronic diseases classified elsewhere; T45.515A - Adverse effect of anticoagulants, initial encounter SNOMED: 852607002, 770510872 (5) Coagulopathy ICD Codes: D68.9 - Coagulation defect, unspecified SNOMED: 89474029 (6) V-tach ICD Codes: I47.2 - Ventricular tachycardia SNOMED: 88287656 (7) Ventricular mural thrombus SNOMED: 89391299 Status: progressing Assessment/Plan foot gangrene s/p bradycardia post endoscopy.dr samaniego was consulted coaguluapthy improving Subjective ROS Limited/Unobtainable: Yes Allergies: Coded Allergies: NO KNOWN ALLERGIES (Unverified Allergy, Unknown, 03/07/15) Objective Last 24 Hour Vital Signs Date Time Temp Pulse Resp B/P Pulse Ox O2 Delivery O2 Flow Rate FiO2 05/21/16 13:40 144/71 05/21/16 11:30 96.9 67 20 144/71 99 Room Air 05/21/16 09:19 158/81 05/21/16 09:19 74 158/81 05/21/16 08:06 96.1 74 20 158/81 100 Room Air 05/21/16 06:06 125/65 05/21/16 04:00 75 05/21/16 04:00 97.7 72 18 123/63 93 Room Air 05/21/16 01:02 121/56 05/21/16 00:00 97.0 65 18 121/56 94 Room Air 05/21/16 00:00 68 05/20/16 21:00 78 111/56 05/20/16 20:00 97.6 78 18 111/56 99 Room Air 05/20/16 17:31 118/64 05/20/16 16:00 97.9 68 18 118/64 95 Room Air Intake and Output 05/20/16 05/21/16 19:00 07:00 Intake Total 803.708 ml 888.708 ml Output Total 0 ml Balance 803.708 ml 888.708 ml Intake Oral 360 ml 320 ml IV Total 443.708 ml 568.708 ml Estimated Blood Loss 0 ml Laboratory Tests 05/21/16 05:00: Prothrombin Time 13.2H, Prothromb Time International Ratio 1.3H, Troponin I < 0.30, Thyroid Stimulating Hormone (TSH) 1.380, Free Thyroxine 1.65 Height (Feet): 5 Height (Inches): 7.00 Weight (Pounds): 223 EENT: PERRL/EOMI Neck: supple Cardiovascular: normal rate Respiratory/Chest: lungs clear Brittny Campos MD May 21, 2016 14:31
[2016-05-21] MEDS: Piperacillin/Tazobactam 3.375 GM in D5W 110 ML IVPB SCH ×2 (14:35→21:08)
[2016-05-21 16:00] VITALS: BP 143/54
[2016-05-21] MEDS ORDERED: Warfarin Sodium 5mg ORAL SCH (17:00)
--- NOTE | 2016-05-21 17:47 | General Progress Note ---
Assessment/Plan Assessment/Plan Assessment/Plan ASSESSMENT: 1. Supratherapeutic INR likely secondary to Coumadin overdose. Improved to 1.4 , does not need FFP, have administered vit k again 2. Coagulopathy 2/2 coumadin for Intracardiac thrombosis. 3. Anemia of chronic disease 4. R.o GI bleed with scope per Dr. Lane. 5. Decreased hemoglobin and hematocrit, rule out GI bleed 6. Leukocytosis and neutrophilia, rule out infxn 7. Hypertension. 8. Cardiomegaly 9. History of CHF. PLAN: 1. Monitor counts. 2. Restart coumadin once inr procedure completed 3. GI procedure today, reported pending 4. The patient is currently without bleeding. 5. Appreciate Pulmonary Critical Care and Nephrology recs 6. Duplex of lower extremities negative for DVT 7. Staff Thank you, Nicolas Jean-Bpatiste MD Subjective Constitutional: Reports: no symptoms HEENT: Reports: no symptoms Cardiovascular: Reports: no symptoms Respiratory: Reports: no symptoms Gastrointestinal/Abdominal: Reports: poor appetite Genitourinary: Reports: no symptoms 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: Reports: no symptoms Endocrine: Reports: no symptoms Hematologic/Lymphatic: Reports: no symptoms Allergies: Coded Allergies: NO KNOWN ALLERGIES (Unverified Allergy, Unknown, 03/07/15) Objective Last 24 Hour Vital Signs Date Time Temp Pulse Resp B/P Pulse Ox O2 Delivery O2 Flow Rate FiO2 05/21/16 17:01 143/65 05/21/16 16:00 97.7 76 21 143/54 93 Room Air 05/21/16 13:40 144/71 05/21/16 11:56 65 05/21/16 11:30 96.9 67 20 144/71 99 Room Air 05/21/16 09:19 158/81 05/21/16 09:19 74 158/81 05/21/16 08:06 96.1 74 20 158/81 100 Room Air 05/21/16 08:04 72 05/21/16 06:06 125/65 05/21/16 04:00 75 05/21/16 04:00 97.7 72 18 123/63 93 Room Air 05/21/16 01:02 121/56 05/21/16 00:00 97.0 65 18 121/56 94 Room Air 05/21/16 00:00 68 05/20/16 21:00 78 111/56 05/20/16 20:00 97.6 78 18 111/56 99 Room Air Intake and Output 05/20/16 05/21/16 19:00 07:00 Intake Total 803.708 ml 888.708 ml Output Total 0 ml Balance 803.708 ml 888.708 ml Intake Oral 360 ml 320 ml IV Total 443.708 ml 568.708 ml Estimated Blood Loss 0 ml Laboratory Tests 05/21/16 05:00: Prothrombin Time 13.2H, Prothromb Time International Ratio 1.3H, Troponin I < 0.30, Thyroid Stimulating Hormone (TSH) 1.380, Free Thyroxine 1.65 Height (Feet): 5 Height (Inches): 7.00 Weight (Pounds): 223 General Appearance: alert EENT: TMs normal Neck: supple Cardiovascular: regular rhythm Respiratory/Chest: lungs clear Abdomen: soft Genitourinary/Rectal: normal rectal exam Extremities: non-tender Edema: no edema noted Arm (L), no edema noted Arm (R), no edema noted Leg (L), no edema noted Leg (R), no edema noted Pedal (L), no edema noted Pedal (R), no edema noted Generalized Neurologic: abnormal gait Skin: warm/dry Lymphatic: normal anterior cervical (L), normal anterior cervical (R), normal axillary (L), normal axillary (R), normal inguinal (L), normal inguinal (R), normal other, normal posterior cervical (L), normal posterior cervical (R), normal submandibular (L), normal submandibular (R), normal supraclavicular (L), normal supraclavicular (R) NICOLAS JEAN-BAPTISTE May 21, 2016 17:47
[2016-05-21] MEDS ORDERED: Tubing IV Secondary IV ONE ×2 (21:39→21:46)
[2016-05-21] MEDS ORDERED: NS 275ml ONE (21:39)
--- NOTE | 2016-05-21 21:48 | Vascular Surgery Progress Note ---
Subjective Subjective All noted Had endoscopy Arrhythmia cards eval noted Foot wet gangrene I&D by podiatry Objective Objective Last 24 Hour Vital Signs Date Time Temp Pulse Resp B/P Pulse Ox O2 Delivery O2 Flow Rate FiO2 05/21/16 21:08 74 143/65 05/21/16 17:01 143/65 05/21/16 16:00 74 05/21/16 16:00 97.7 76 21 143/54 93 Room Air 05/21/16 13:40 144/71 05/21/16 11:56 65 05/21/16 11:30 96.9 67 20 144/71 99 Room Air 05/21/16 09:19 158/81 05/21/16 09:19 74 158/81 05/21/16 08:06 96.1 74 20 158/81 100 Room Air 05/21/16 08:04 72 05/21/16 06:06 125/65 05/21/16 04:00 75 05/21/16 04:00 97.7 72 18 123/63 93 Room Air 05/21/16 01:02 121/56 05/21/16 00:00 97.0 65 18 121/56 94 Room Air 05/21/16 00:00 68 Intake and Output 05/20/16 05/21/16 19:00 07:00 Intake Total 803.708 ml 888.708 ml Output Total 0 ml Balance 803.708 ml 888.708 ml Intake Oral 360 ml 320 ml IV Total 443.708 ml 568.708 ml Estimated Blood Loss 0 ml Laboratory Tests Test 05/21/16 05:00 Prothrombin Time 13.2 SEC (9.30-11.50) H Prothromb Time International Ratio 1.3 (0.9-1.1) H Troponin I < 0.30 ng/mL (<=0.30) Thyroid Stimulating Hormone (TSH) 1.380 uIU/mL (0.300-4.500) Free Thyroxine 1.65 ng/dL (0.86-1.85) Height (Feet): 5 Height (Inches): 7.00 Weight (Pounds): 223 Objective cvs rrr lungs rhonchi abd soft nontender Right foot foul smelling necrosis and gangrene with extension to below ankle 2+ femorals absent popliteal DP PT pulses absent Assessment/Plan Assessment Severe 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
[2016-05-22] MEDS: HydrALAZINE 10mg Tab ORAL SCH ×4 (00:15→19:05)
[2016-05-22 00:36] VITALS: BP 126/70
[2016-05-22] MEDS: Vancomycin 750 MG in D5W 275 ML IVPB SCH ×2 (03:42→16:55)
[2016-05-22 04:28] VITALS: BP 148/79
[2016-05-22] MEDS: NovoLOG Insulin Flexpen SUBQ SCH ×4 (06:23→20:56)
[2016-05-22] MEDS: Piperacillin/Tazobactam 3.375 GM in D5W 110 ML IVPB SCH ×3 (06:23→21:01)
--- NOTE | 2016-05-22 07:53 | General Progress Note ---
Assessment/Plan Assessment/Plan ASSESSMENT: 1. Supratherapeutic INR likely secondary to Coumadin overdose. Improved, now is back on coumadin 2. 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 3. Anemia of chronic disease 4. R.o GI bleed with scope per Dr. Lane 5. Decreased hemoglobin and hematocrit, rule out GI bleed 6. Leukocytosis and neutrophilia, rule out infxn 7. Hypertension. 8. Cardiomegaly 9. History of chf PLAN: 1. Monitor counts. 2. Back on coumadin 3. Inr goal 2-3 4. The patient is currently without bleeding. 5. Appreciate Pulmonary Critical Care and Nephrology recs 6. Duplex of lower extremities negative for DVT 7. Staff Thank you, Lazarus Jean-Baptiste MD Subjective Constitutional: Reports: no symptoms HEENT: Reports: no symptoms Cardiovascular: Reports: no symptoms Respiratory: Reports: no symptoms Gastrointestinal/Abdominal: Reports: poor appetite Genitourinary: Reports: no symptoms 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: Reports: no symptoms Endocrine: Reports: no symptoms Hematologic/Lymphatic: Reports: anemia Allergies: Coded Allergies: NO KNOWN ALLERGIES (Unverified Allergy, Unknown, 03/07/15) Subjective s/p procedure this am, without bleeding, has restarted coumadin Objective Last 24 Hour Vital Signs Date Time Temp Pulse Resp B/P Pulse Ox O2 Delivery O2 Flow Rate FiO2 05/22/16 06:23 147/64 05/22/16 04:28 98.3 70 18 148/79 96 Room Air 05/22/16 04:00 72 05/22/16 00:36 98.7 75 19 126/70 94 Room Air 05/22/16 00:15 126/70 05/22/16 00:00 76 05/21/16 21:08 74 143/65 05/21/16 20:00 77 05/21/16 17:01 143/65 05/21/16 16:00 74 05/21/16 16:00 97.7 76 21 143/54 93 Room Air 05/21/16 13:40 144/71 05/21/16 11:56 65 05/21/16 11:30 96.9 67 20 144/71 99 Room Air 05/21/16 09:19 158/81 05/21/16 09:19 74 158/81 3/11/17 08:06 96.1 74 20 158/81 100 Room Air 05/21/16 08:04 72 Intake and Output 05/21/16 05/22/16 19:00 07:00 Intake Total 477.416 ml 530.000 ml Output Total 125 ml 1100 ml Balance 352.416 ml -570.000 ml Intake Oral 200 ml IV Total 477.416 ml 330.000 ml Output Urine Total 125 ml 1100 ml Height (Feet): 5 Height (Inches): 7.00 Weight (Pounds): 234 General Appearance: no apparent distress EENT: TMs normal Neck: supple Cardiovascular: regular rhythm Respiratory/Chest: lungs clear Abdomen: soft Extremities: non-tender Edema: mild edema Neurologic: alert Skin: warm/dry Lazarus Jean-Baptiste May 22, 2016 07:52
[2016-05-22 08:05] VITALS: BP 158/77
[2016-05-22] MEDS: Furosemide 40mg tab ORAL SCH ×2 (08:54→19:05)
[2016-05-22] MEDS: Lisinopril 20mg tab ORAL SCH (08:54)
[2016-05-22] MEDS: Carvedilol 25mg Tab ORAL SCH ×2 (08:55→20:55)
--- NOTE | 2016-05-22 09:36 | Podiatric Progress Note ---
Assessment/Plan Patient Orin Longoria is a 66 year old female who was admitted on May 17, 2016 at 05: 50 with increased INR Problems: (1) Toe gangrene (2) Diabetic foot ulcer (3) Bilateral leg ulcer (4) Diabetic peripheral neuropathy (5) Leukocytosis Assessment/Plan Polymicrobially infected wounds of bilateral lower extremities. Bilateral legs with superficial ulcerations and right hallux with gangrene and malodorous wound. - 1 day status post right hallux bedside wound debridement. Goal is to stabilize the wound. Once patient is optimized for surgical intervention will consider amputation - Continue antibiotics per infectious disease department recommendations - Continue local wound care of bilateral leg ulcers - Offload heels - Will continue to monitor patient closely - Follow up arterial study results. Vascular surgeon is also following patient Subjective Reason for consult Bilateral leg wounds and right hallux gangrene Allergies: Coded Allergies: NO KNOWN ALLERGIES (Unverified Allergy, Unknown, 03/07/15) Subjective Patient is more alert currently. She states no nausea, vomiting, fevers, or chills. Patient is emotional and states she is worried about loosing her foot Objective Exam Last 24 Hour Vital Signs Date Time Temp Pulse Resp B/P Pulse Ox O2 Delivery O2 Flow Rate FiO2 05/22/16 08:55 69 158/77 05/22/16 08:54 158/77 05/22/16 08:05 97.3 69 18 158/77 98 Room Air 05/22/16 06:23 147/64 05/22/16 04:28 98.3 70 18 148/79 96 Room Air 05/22/16 04:00 72 05/22/16 00:36 98.7 75 19 126/70 94 Room Air 05/22/16 00:15 126/70 05/22/16 00:00 76 05/21/16 21:08 74 143/65 05/21/16 20:00 77 05/21/16 17:01 143/65 05/21/16 16:00 74 05/21/16 16:00 97.7 76 21 143/54 93 Room Air 05/21/16 13:40 144/71 05/21/16 11:56 65 05/21/16 11:30 96.9 67 20 144/71 99 Room Air Microbiology Date/Time Source Procedure Growth Status 05/18/16 19:30 Blood Blood Culture - Preliminary NO GROWTH AFTER 72 HOURS Resulted 05/17/16 07:48 Nasal Nares MRSA Culture - Final NO METHICILLIN RESISTANT STAPH AUREUS... Complete 05/19/16 06:00 Foot Right Gram Stain - Final Resulted 05/19/16 06:00 Wound Culture - Preliminary Gram Negative Bacillus 1 Gram Negative Bacillus 2 Gram Negative Bacillus 3 Resulted Exam Narrative Right hallux gangrenous and malodorous wound. No purulence noted. The wound tunnels proximally and is being dressed with packing gauze and betadine. Bilateral superficial leg ulcers are stable. Adán Singh DPM May 22, 2016 09:36
[2016-05-22] MEDS ORDERED: Tubing IV Secondary IV ONE (10:05)
[2016-05-22] MEDS ORDERED: NS 275ml ONE (10:05)
--- NOTE | 2016-05-22 11:07 | General Progress Note ---
Assessment/Plan Problem List: (1) Dizziness ICD Codes: R42 - Dizziness and giddiness SNOMED: 297093753 (2) HTN (hypertension) ICD Codes: I10 - Essential (primary) hypertension SNOMED: 56142833 (3) DM (diabetes mellitus) ICD Codes: E11.9 - Type 2 diabetes mellitus without complications SNOMED: 51615055 (4) Anemia, chronic disease ICD Codes: D63.8 - Anemia in other chronic diseases classified elsewhere; T45.515A - Adverse effect of anticoagulants, initial encounter SNOMED: 343088170, 191365133 (5) Coagulopathy ICD Codes: D68.9 - Coagulation defect, unspecified SNOMED: 92095582 (6) V-tach ICD Codes: I47.2 - Ventricular tachycardia SNOMED: 47734484 (7) Ventricular mural thrombus SNOMED: 05736678 Status: progressing Assessment/Plan foot gangrene s/p bradycardia post endoscopy.dr samaniego was consulted coaguluapthy improving amputation per dr saxena vascular is following as well nettie is resolved coagulapathy Subjective ROS Limited/Unobtainable: Yes Allergies: Coded Allergies: NO KNOWN ALLERGIES (Unverified Allergy, Unknown, 03/07/15) Objective Last 24 Hour Vital Signs Date Time Temp Pulse Resp B/P Pulse Ox O2 Delivery O2 Flow Rate FiO2 05/22/16 08:55 69 158/77 05/22/16 08:54 158/77 05/22/16 08:05 97.3 69 18 158/77 98 Room Air 05/22/16 08:04 69 05/22/16 06:23 147/64 05/22/16 04:28 98.3 70 18 148/79 96 Room Air 05/22/16 04:00 72 05/22/16 00:36 98.7 75 19 126/70 94 Room Air 05/22/16 00:15 126/70 05/22/16 00:00 76 05/21/16 21:08 74 143/65 05/21/16 20:00 77 05/21/16 17:01 143/65 05/21/16 16:00 74 05/21/16 16:00 97.7 76 21 143/54 93 Room Air 05/21/16 13:40 144/71 05/21/16 11:56 65 05/21/16 11:30 96.9 67 20 144/71 99 Room Air Intake and Output 05/21/16 05/22/16 19:00 07:00 Intake Total 477.416 ml 530.000 ml Output Total 125 ml 1100 ml Balance 352.416 ml -570.000 ml Intake Oral 200 ml IV Total 477.416 ml 330.000 ml Output Urine Total 125 ml 1100 ml Height (Feet): 5 Height (Inches): 7.00 Weight (Pounds): 234 General Appearance: confused Cardiovascular: normal rate Respiratory/Chest: lungs clear Brittny Campos MD May 22, 2016 11:07
[2016-05-22 11:43] VITALS: BP 148/70
--- NOTE | 2016-05-22 14:32 | Cardiac Electrophysiology PN ---
Assessment/Plan Assessment/Plan 1. Transient bradycardia likely secondary to vagal effect of colonoscopy and very high dose of Coreg 50 mg twice a day.No recurrence after Coreg decreased to 25 mg twice a day. 2. History of cardiomyopathy with ejection fraction of 45%. Continue lisinopril 20 mg daily, Coreg 25 bid, Lasix 40 mg twice a day and hydralazine 25 mg every six hours. 3. 15 beats of NSVT. Rule out for KS.Nuclear stress test on Monday pending. 4. Anemia. The patient underwent esophagogastroduodenoscopy and colonoscopy by Dr. Lane , found hiatal hernia and two polyps. 5. Left foot gangrene with diabetic foot ulcer. 6. Intracardiac mural thrombus on Coumadin. 7. Diabetes and chronic anemia. MARIA VICTORIA RN Subjective Subjective Comfortable in NAD. No further nettie with decreasing Coreg to 25 bid.. Objective Last 24 Hour Vital Signs Date Time Temp Pulse Resp B/P Pulse Ox O2 Delivery O2 Flow Rate FiO2 05/22/16 12:14 140/70 05/22/16 11:43 97.5 65 18 148/70 99 Room Air 05/22/16 08:55 69 158/77 05/22/16 08:54 158/77 05/22/16 08:05 97.3 69 18 158/77 98 Room Air 05/22/16 08:04 69 05/22/16 06:23 147/64 05/22/16 04:28 98.3 70 18 148/79 96 Room Air 05/22/16 04:00 72 05/22/16 00:36 98.7 75 19 126/70 94 Room Air 05/22/16 00:15 126/70 05/22/16 00:00 76 05/21/16 21:08 74 143/65 05/21/16 20:00 77 05/21/16 17:01 143/65 05/21/16 16:00 74 05/21/16 16:00 97.7 76 21 143/54 93 Room Air Intake and Output 05/21/16 05/22/16 19:00 07:00 Intake Total 477.416 ml 530.000 ml Output Total 125 ml 1100 ml Balance 352.416 ml -570.000 ml Intake Oral 200 ml IV Total 477.416 ml 330.000 ml Output Urine Total 125 ml 1100 ml Current Medications Medications (Trade) Dose Ordered Sig/Anh Route PRN Reason Start Time Stop Time Status Last Admin Dose Admin Acetaminophen (Tylenol) 650 mg Q4H PRN ORAL T>100.5 05/20/16 10:00 06/19/16 09:59 05/20/16 21:34 Al Hydroxide/Mg Hydroxide (Mylanta II) 30 ml Q6H PRN ORAL dyspepsia 05/20/16 10:00 06/19/16 09:59 Atorvastatin Calcium (Lipitor) 40 mg BEDTIME ORAL 05/20/16 21:00 06/19/16 20:59 05/21/16 21:08 Carvedilol 25 mg 25 mg EVERY 12 HOURS ORAL 05/21/16 21:00 06/20/16 20:59 05/22/16 08:55 Collagenase (Santyl) 1 applic DAILY TOPIC 05/20/16 10:00 06/19/16 09:59 05/22/16 08:55 Dextrose (Dextrose 50%) STAT PRN IV Hypoglycemia 05/21/16 07:00 06/20/16 06:59 Furosemide (Lasix) 40 mg TWICE A DAY ORAL 05/20/16 10:00 06/19/16 09:59 05/22/16 08:54 Hydralazine HCl (Apresoline) 25 mg EVERY 6 HOURS ORAL 05/20/16 18:00 06/19/16 17:59 05/22/16 12:14 Insulin Aspart (NovoLOG) BEFORE MEALS AND HS SUBQ 05/20/16 11:30 06/19/16 11:29 05/22/16 12:14 Lisinopril (Prinivil) 20 mg DAILY ORAL 05/20/16 10:00 06/19/16 09:59 05/22/16 08:54 Lorazepam (Ativan 2mg/ml 1ml) 0.5 mg Q4H PRN IV For Anxiety 05/20/16 10:00 05/27/16 09:59 05/21/16 02:07 Morphine Sulfate (Morphine Sulfate) 1 mg Q4H PRN IVP PAIN 4-10 05/20/16 10:00 05/27/16 09:59 05/21/16 16:49 Ondansetron HCl (Zofran) 4 mg Q6H PRN IVP Nausea & Vomiting 05/20/16 10:00 06/19/16 09:59 Piperacillin Sod/ Tazobactam Sod/ Dextrose (Zosyn/D5W) 110 ml @ 27.5 mls/hr EVERY 8 HOURS IVPB 05/21/16 14:00 05/26/16 13:59 05/22/16 13:03 Polyethylene Glycol (Miralax) 17 gm HSPRN PRN ORAL Constipation 05/20/16 21:00 06/19/16 20:59 Vancomycin HCl (Vanco rx to dose) 1 ea DAILY PRN MISC . 05/21/16 09:00 06/20/16 08:59 Vancomycin HCl/ Dextrose (Vancomycin/D5W) 275 ml @ 183.708 mls/hr Q12HR@0400,1600 IVPB 05/20/16 16:00 05/25/16 15:59 05/22/16 03:42 Warfarin Sodium (Coumadin per pharmacy) 1 ea DAILY PRN MISC Per rx protocol 05/20/16 10:15 06/19/16 10:14 Warfarin Sodium (Coumadin) 5 mg COUMADIN ORAL 05/22/16 17:00 05/22/16 17:01 Zolpidem Tartrate (Ambien) 5 mg HSPRN PRN ORAL Insomnia 05/20/16 21:00 06/19/16 20:59 05/21/16 21:08 Objective HEAD AND NECK: Shows normal jugular venous distention. LUNGS: Decreased breath sounds. CARDIOVASCULAR: Shows regular S1 and S2 with no gallop or murmur. ABDOMEN: Soft. EXTREMITIES: Have 1+ pitting edema as well as gangrene of the skin as well as right big toe SHERRILL PENDLETON May 22, 2016 14:32
--- NOTE | 2016-05-22 15:10 | General Progress Note ---
Assessment/Plan Assessment/Plan Assessment - gastritis, colon polyp - anemia - stable - functional decline - HTN - DM - ventricular clot Recommendations - push po - OK for anticoagulation from GI standpoint - follow labs Subjective Allergies: Coded Allergies: NO KNOWN ALLERGIES (Unverified Allergy, Unknown, 03/07/15) Subjective dislikes the hospital food poor po no abd complaints Objective Last 24 Hour Vital Signs Date Time Temp Pulse Resp B/P Pulse Ox O2 Delivery O2 Flow Rate FiO2 05/22/16 12:14 140/70 05/22/16 11:43 97.5 65 18 148/70 99 Room Air 05/22/16 08:55 69 158/77 05/22/16 08:54 158/77 05/22/16 08:05 97.3 69 18 158/77 98 Room Air 05/22/16 08:04 69 05/22/16 06:23 147/64 05/22/16 04:28 98.3 70 18 148/79 96 Room Air 05/22/16 04:00 72 05/22/16 00:36 98.7 75 19 126/70 94 Room Air 05/22/16 00:15 126/70 05/22/16 00:00 76 05/21/16 21:08 74 143/65 05/21/16 20:00 77 05/21/16 17:01 143/65 05/21/16 16:00 74 05/21/16 16:00 97.7 76 21 143/54 93 Room Air Intake and Output 05/21/16 05/22/16 19:00 07:00 Intake Total 477.416 ml 530.000 ml Output Total 125 ml 1100 ml Balance 352.416 ml -570.000 ml Intake Oral 200 ml IV Total 477.416 ml 330.000 ml Output Urine Total 125 ml 1100 ml Height (Feet): 5 Height (Inches): 7.00 Weight (Pounds): 234 Objective WDWN NCAT supple CTA RRR Soft ND NT (+) LE wounds SHRUTI DE ANDA May 22, 2016 15:10
[2016-05-22 16:00] VITALS: BP 133/76
[2016-05-22] MEDS ORDERED: Warfarin Sodium 5mg ORAL SCH (17:00)
[2016-05-22 20:00] VITALS: BP 147/61
[2016-05-22] MEDS ORDERED: Warfarin Sodium 5mg ORAL ONE (20:30)
--- NOTE | 2016-05-22 23:13 | Pulmonology Progress Note ---
Assessment/Plan Problems: (1) Coagulopathy (2) Diabetic foot ulcer (3) Ventricular mural thrombus (4) HTN (hypertension) (5) DM (diabetes mellitus) (6) Anemia, chronic disease Assessment/Plan monitor heart rate cardio evaluation appreciated f/u h/h, pt/ptt continue antibiotics bradycardia resolved awaiting stress test Subjective ROS Limited/Unobtainable: No Allergies: Coded Allergies: NO KNOWN ALLERGIES (Unverified Allergy, Unknown, 03/07/15) Objective Last 24 Hour Vital Signs Date Time Temp Pulse Resp B/P Pulse Ox O2 Delivery O2 Flow Rate FiO2 05/22/16 20:55 96 142/66 05/22/16 20:00 69 05/22/16 20:00 98.4 93 22 147/61 93 Room Air 05/22/16 19:05 136/72 05/22/16 16:00 65 05/22/16 16:00 97.9 79 20 133/76 97 Room Air 05/22/16 12:14 140/70 05/22/16 12:00 65 05/22/16 11:43 97.5 65 18 148/70 99 Room Air 05/22/16 08:55 69 158/77 05/22/16 08:54 158/77 05/22/16 08:05 97.3 69 18 158/77 98 Room Air 05/22/16 08:04 69 05/22/16 06:23 147/64 05/22/16 04:28 98.3 70 18 148/79 96 Room Air 05/22/16 04:00 72 05/22/16 00:36 98.7 75 19 126/70 94 Room Air 05/22/16 00:15 126/70 05/22/16 00:00 76 Intake and Output 05/21/16 05/22/16 19:00 07:00 Intake Total 477.416 ml 530.000 ml Output Total 125 ml 1100 ml Balance 352.416 ml -570.000 ml Intake Oral 200 ml IV Total 477.416 ml 330.000 ml Output Urine Total 125 ml 1100 ml Objective General Appearance: WD/WN HEENT: normocephalic, atraumatic Respiratory/Chest: chest wall non-tender, crackles/rales Cardiovascular: normal peripheral pulses, normal rate Abdomen: normal bowel sounds, soft, non tender Genitourinary: normal external genitalia Extremities: no cyanosis, no clubbing, ulers and gangrene Skin: no rash 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: 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 Current Medications Medications (Trade) Dose Ordered Sig/Anh Route PRN Reason Start Time Stop Time Status Last Admin Dose Admin Acetaminophen (Tylenol) 650 mg Q4H PRN ORAL T>100.5 05/20/16 10:00 06/19/16 09:59 05/20/16 21:34 Al Hydroxide/Mg Hydroxide (Mylanta II) 30 ml Q6H PRN ORAL dyspepsia 05/20/16 10:00 06/19/16 09:59 Atorvastatin Calcium (Lipitor) 40 mg BEDTIME ORAL 05/20/16 21:00 06/19/16 20:59 05/22/16 20:54 Carvedilol 25 mg 25 mg EVERY 12 HOURS ORAL 05/21/16 21:00 06/20/16 20:59 05/22/16 20:55 Collagenase (Santyl) 1 applic DAILY TOPIC 05/20/16 10:00 06/19/16 09:59 05/22/16 08:55 Dextrose (Dextrose 50%) STAT PRN IV Hypoglycemia 05/21/16 07:00 06/20/16 06:59 Furosemide (Lasix) 40 mg TWICE A DAY ORAL 05/20/16 10:00 06/19/16 09:59 05/22/16 19:05 Hydralazine HCl (Apresoline) 25 mg EVERY 6 HOURS ORAL 05/20/16 18:00 06/19/16 17:59 05/22/16 19:05 Insulin Aspart (NovoLOG) BEFORE MEALS AND HS SUBQ 05/20/16 11:30 06/19/16 11:29 05/22/16 12:14 Lisinopril (Prinivil) 20 mg DAILY ORAL 05/20/16 10:00 06/19/16 09:59 05/22/16 08:54 Lorazepam (Ativan 2mg/ml 1ml) 0.5 mg Q4H PRN IV For Anxiety 05/20/16 10:00 05/27/16 09:59 05/21/16 02:07 Morphine Sulfate (Morphine Sulfate) 1 mg Q4H PRN IVP PAIN 4-10 05/20/16 10:00 05/27/16 09:59 05/21/16 16:49 Ondansetron HCl (Zofran) 4 mg Q6H PRN IVP Nausea & Vomiting 05/20/16 10:00 06/19/16 09:59 Piperacillin Sod/ Tazobactam Sod/ Dextrose (Zosyn/D5W) 110 ml @ 27.5 mls/hr EVERY 8 HOURS IVPB 05/21/16 14:00 05/26/16 13:59 05/22/16 21:01 Polyethylene Glycol (Miralax) 17 gm HSPRN PRN ORAL Constipation 05/20/16 21:00 06/19/16 20:59 Vancomycin HCl (Vanco rx to dose) 1 ea DAILY PRN MISC . 05/21/16 09:00 06/20/16 08:59 Vancomycin HCl/ Dextrose (Vancomycin/D5W) 275 ml @ 183.708 mls/hr Q12HR@0400,1600 IVPB 05/20/16 16:00 05/25/16 15:59 05/22/16 16:55 Warfarin Sodium (Coumadin per pharmacy) 1 ea DAILY PRN MISC Per rx protocol 05/20/16 10:15 06/19/16 10:14 Zolpidem Tartrate (Ambien) 5 mg HSPRN PRN ORAL Insomnia 05/20/16 21:00 06/19/16 20:59 05/21/16 21:08 AMARIS POWERS May 22, 2016 23:12
[2016-05-23 00:10] VITALS: BP 124/59
[2016-05-23] MEDS: HydrALAZINE 10mg Tab ORAL SCH ×4 (00:46→18:00)
[2016-05-23] MEDS: Morphine Sulfate 2mg/ml Inj IVP PRN ×2 (00:47→21:10)
[2016-05-23] MEDS: Vancomycin 750 MG in D5W 275 ML IVPB SCH ×2 (04:05→16:54)
[2016-05-23 04:20] VITALS: BP 157/78
[2016-05-23] MEDS: NovoLOG Insulin Flexpen SUBQ SCH ×4 (06:20→21:22)
[2016-05-23] MEDS: Piperacillin/Tazobactam 3.375 GM in D5W 110 ML IVPB SCH ×3 (06:55→21:27)
[2016-05-23 08:00] VITALS: BP 129/87
[2016-05-23 08:03] LABS: INR 1.6 (0.9-1.1); PROTHROMBIN TIME 16.6 SEC (9.30-11.50)
--- NOTE | 2016-05-23 08:48 | Operative Note - Dictated ---
DATE OF OPERATION: 05/20/2016 PROCEDURE: Upper gastrointestinal endoscopy with biopsy as well as colonoscopy with biopsy. SURGEON: Rolando Lane M.D. ANESTHESIA: Please see the separate anesthesia notes for details. PRE-ENDOSCOPIC DIAGNOSIS: Anemia. POST-ENDOSCOPIC DIAGNOSES: 1. A 4 centimeter hiatal hernia with some proximal gastritis. 2. Status post random biopsy of the antrum. 3. [id number] pancolonic diverticulosis. 4. Two diminutive polyps removed with biopsy forceps from the left colon. 5. Postprocedure bradycardia as described below. PROCEDURE IN DETAIL: The procedure, its risks, indications, alternatives, and possible complications including, but not limited to bleeding, infection, perforation, , and anesthesia complications were explained to the patient's daughter and informed consent was obtained. The patient was then sedated. A diagnostic upper endoscope was introduced through the oropharynx and advanced to the duodenum. The endoscope was then gradually withdrawn and the mucosa examined carefully. The endoscope was removed and the colonoscope was introduced in the rectum and advanced to the cecum without difficulty. The cecum was identified by the appearance of the ileocecal valve. The colonoscope was then gradually withdrawn and the mucosa was examined carefully. The procedure findings and biopsies were as described above. The procedure was completed and the patient was being prepared for transfer back to recovery where she suddenly became bradycardic and hypotensive. She was given ephedrine and then subsequently atropine. Her heart rate resumed back to appropriate range. She maintained her blood pressure and heart rate in an acceptable range throughout this event. Please see anesthesia records for details. The patient was then subsequently transferred to the recovery area. ASSESSMENT: This examination was notable for findings of hiatal hernia and diverticulosis. There was no blood or actively bleeding lesion was seen in the gastrointestinal tract. Biopsies of the antrum Helicobacter pylori positive. Long-term supplementation is recommended. The etiology of the patient's bradycardia after the completion of the colonoscopy was unclear. It was felt that it was possibly a vasovagal event although this is unusual in the postoperative recovery phase. RECOMMENDATIONS: 1. Telemetry monitoring for today. 2. Recommend Cardiology consultation. 3. Followup biopsy results. Rolando Lane M.D. DR: DENY JOB#: [id number] CC:
[2016-05-23] MEDS: Lisinopril 20mg tab ORAL SCH (09:16)
[2016-05-23] MEDS: Carvedilol 25mg Tab ORAL SCH ×2 (09:16→21:23)
[2016-05-23] MEDS: Furosemide 40mg tab ORAL SCH ×2 (09:16→18:20)
[2016-05-23 12:00] VITALS: BP 128/69
--- NOTE | 2016-05-23 12:38 | General Progress Note ---
Assessment/Plan Problem List: (1) Dizziness ICD Codes: R42 - Dizziness and giddiness SNOMED: 221269070 (2) HTN (hypertension) ICD Codes: I10 - Essential (primary) hypertension SNOMED: 45856199 (3) DM (diabetes mellitus) ICD Codes: E11.9 - Type 2 diabetes mellitus without complications SNOMED: 58511535 (4) Anemia, chronic disease ICD Codes: D63.8 - Anemia in other chronic diseases classified elsewhere; T45.515A - Adverse effect of anticoagulants, initial encounter SNOMED: 357882571, 847836667 (5) Coagulopathy ICD Codes: D68.9 - Coagulation defect, unspecified SNOMED: 14723029 (6) V-tach ICD Codes: I47.2 - Ventricular tachycardia SNOMED: 39818158 (7) Ventricular mural thrombus SNOMED: 10217631 Status: progressing Assessment/Plan foot gangrene s/p bradycardia post endoscopy.dr samaniego was consulted coaguluapthy improving\ needs to go to [facility] for angiogram order given to cm Subjective ROS Limited/Unobtainable: Yes Constitutional: Reports: no symptoms Allergies: Coded Allergies: NO KNOWN ALLERGIES (Unverified Allergy, Unknown, 03/07/15) Objective Last 24 Hour Vital Signs Date Time Temp Pulse Resp B/P Pulse Ox O2 Delivery O2 Flow Rate FiO2 05/23/16 11:51 128/69 05/23/16 09:16 74 129/87 05/23/16 09:16 129/87 05/23/16 08:00 98.1 74 18 129/87 98 Room Air 05/23/16 07:34 79 05/23/16 06:37 128/60 05/23/16 04:20 97.9 78 20 157/78 95 Room Air 05/23/16 04:00 66 05/23/16 01:00 66 05/23/16 00:46 124/59 05/23/16 00:10 97.0 70 20 124/59 94 Room Air 05/23/16 00:00 73 05/22/16 20:55 96 142/66 05/22/16 20:00 69 05/22/16 20:00 98.4 93 22 147/61 93 Room Air 05/22/16 19:05 136/72 05/22/16 16:00 65 05/22/16 16:00 97.9 79 20 133/76 97 Room Air Intake and Output 05/22/16 05/23/16 19:00 07:00 Intake Total 504.9 ml 702.500 ml Output Total 500 ml 500 ml Balance 4.9 ml 202.500 ml Intake Oral 400 ml IV Total 504.9 ml 302.500 ml Output Urine Total 500 ml 500 ml Laboratory Tests 05/23/16 06:45: Prothrombin Time 16.6H, Prothromb Time International Ratio 1.6H Height (Feet): 5 Height (Inches): 7.00 Weight (Pounds): 239 General Appearance: confused Respiratory/Chest: lungs clear Abdomen: soft Brittny Campos MD May 23, 2016 12:38
--- NOTE | 2016-05-23 13:04 | General Progress Note ---
Assessment/Plan Assessment/Plan ASSESSMENT: 1. Supratherapeutic INR likely secondary to Coumadin overdose. Improved, now is back on coumadin 2. 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 3. Anemia of chronic disease 4. R.o GI bleed with scope per Dr. Lane 5. Decreased hemoglobin and hematocrit, rule out GI bleed 6. Leukocytosis and neutrophilia, rule out infxn 7. Hypertension. 8. Cardiomegaly 9. History of chf PLAN: 1. Monitor counts. 2. Back on coumadin 3. Inr goal 2-3 4. The patient is currently without bleeding. 5. Appreciate Pulmonary Critical Care and Nephro recs 6. Potential transfer for angiogram to [facility] 7. Staff Thank you, Lazarus Jean-Baptiste MD Subjective Constitutional: Reports: no symptoms HEENT: Reports: no symptoms Cardiovascular: Reports: no symptoms Respiratory: Reports: no symptoms Gastrointestinal/Abdominal: Reports: poor appetite Genitourinary: Reports: no symptoms 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: Reports: no symptoms Endocrine: Reports: no symptoms Hematologic/Lymphatic: Reports: anemia Allergies: Coded Allergies: NO KNOWN ALLERGIES (Unverified Allergy, Unknown, 03/07/15) Subjective without bleeding, has restarted on coumadin Objective Last 24 Hour Vital Signs Date Time Temp Pulse Resp B/P Pulse Ox O2 Delivery O2 Flow Rate FiO2 05/23/16 11:51 128/69 05/23/16 09:16 74 129/87 05/23/16 09:16 129/87 05/23/16 08:00 98.1 74 18 129/87 98 Room Air 05/23/16 07:34 79 05/23/16 06:37 128/60 05/23/16 04:20 97.9 78 20 157/78 95 Room Air 05/23/16 04:00 66 05/23/16 01:00 66 05/23/16 00:46 124/59 05/23/16 00:10 97.0 70 20 124/59 94 Room Air 05/23/16 00:00 73 05/22/16 20:55 96 142/66 05/22/16 20:00 69 05/22/16 20:00 98.4 93 22 147/61 93 Room Air 05/22/16 19:05 136/72 05/22/16 16:00 65 05/22/16 16:00 97.9 79 20 133/76 97 Room Air Intake and Output 05/22/16 05/23/16 19:00 07:00 Intake Total 504.9 ml 702.500 ml Output Total 500 ml 500 ml Balance 4.9 ml 202.500 ml Intake Oral 400 ml IV Total 504.9 ml 302.500 ml Output Urine Total 500 ml 500 ml Laboratory Tests 05/23/16 06:45: Prothrombin Time 16.6H, Prothromb Time International Ratio 1.6H Height (Feet): 5 Height (Inches): 7.00 Weight (Pounds): 239 General Appearance: no apparent distress EENT: TMs normal Neck: supple Cardiovascular: regular rhythm Respiratory/Chest: lungs clear Abdomen: non tender Extremities: non-tender Edema: no edema noted Leg (L), no edema noted Leg (R) Edema: mild edema Neurologic: abnormal gait Skin: warm/dry Lazarus Jean-Baptiste May 23, 2016 13:04
--- NOTE | 2016-05-23 15:03 | Pulmonology Progress Note ---
Assessment/Plan Problems: (1) Coagulopathy (2) Diabetic foot ulcer (3) Ventricular mural thrombus (4) HTN (hypertension) (5) DM (diabetes mellitus) (6) Anemia, chronic disease Assessment/Plan monitor heart rate venous dupplex negative cardio evaluation appreciated f/u h/h, pt/ptt continue antibiotics bradycardia resolved awaiting stress test Subjective ROS Limited/Unobtainable: No Constitutional: Reports: no symptoms HEENT: Repors: no symptoms Respiratory: Reports: no symptoms Cardiovascular: Reports: no symptoms Allergies: Coded Allergies: NO KNOWN ALLERGIES (Unverified Allergy, Unknown, 03/07/15) Objective Last 24 Hour Vital Signs Date Time Temp Pulse Resp B/P Pulse Ox O2 Delivery O2 Flow Rate FiO2 05/23/16 12:00 97.5 73 18 128/69 95 05/23/16 11:51 128/69 05/23/16 11:27 73 05/23/16 09:16 74 129/87 05/23/16 09:16 129/87 05/23/16 08:00 98.1 74 18 129/87 98 Room Air 05/23/16 07:34 79 05/23/16 06:37 128/60 05/23/16 04:20 97.9 78 20 157/78 95 Room Air 05/23/16 04:00 66 05/23/16 01:00 66 05/23/16 00:46 124/59 05/23/16 00:10 97.0 70 20 124/59 94 Room Air 05/23/16 00:00 73 05/22/16 20:55 96 142/66 05/22/16 20:00 69 05/22/16 20:00 98.4 93 22 147/61 93 Room Air 05/22/16 19:05 136/72 05/22/16 16:00 65 05/22/16 16:00 97.9 79 20 133/76 97 Room Air Intake and Output 05/22/16 05/23/16 19:00 07:00 Intake Total 504.9 ml 702.500 ml Output Total 500 ml 500 ml Balance 4.9 ml 202.500 ml Intake Oral 400 ml IV Total 504.9 ml 302.500 ml Output Urine Total 500 ml 500 ml Objective General Appearance: WD/WN HEENT: normocephalic, atraumatic Respiratory/Chest: chest wall non-tender, crackles/rales Cardiovascular: normal peripheral pulses, normal rate Abdomen: normal bowel sounds, soft, non tender Genitourinary: normal external genitalia Extremities: no cyanosis, no clubbing, ulers and gangrene Skin: no rash 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 Laboratory Tests 05/23/16 06:45: Prothrombin Time 16.6H, Prothromb Time International Ratio 1.6H Current Medications Medications (Trade) Dose Ordered Sig/Anh Route PRN Reason Start Time Stop Time Status Last Admin Dose Admin Acetaminophen (Tylenol) 650 mg Q4H PRN ORAL T>100.5 05/20/16 10:00 06/19/16 09:59 05/20/16 21:34 Al Hydroxide/Mg Hydroxide (Mylanta II) 30 ml Q6H PRN ORAL dyspepsia 05/20/16 10:00 06/19/16 09:59 Atorvastatin Calcium (Lipitor) 40 mg BEDTIME ORAL 05/20/16 21:00 06/19/16 20:59 05/22/16 20:54 Carvedilol 25 mg 25 mg EVERY 12 HOURS ORAL 05/21/16 21:00 06/20/16 20:59 05/23/16 09:16 Collagenase (Santyl) 1 applic DAILY TOPIC 05/20/16 10:00 06/19/16 09:59 05/23/16 09:16 Dextrose (Dextrose 50%) STAT PRN IV Hypoglycemia 05/21/16 07:00 06/20/16 06:59 Furosemide (Lasix) 40 mg TWICE A DAY ORAL 05/20/16 10:00 06/19/16 09:59 05/23/16 09:16 Hydralazine HCl (Apresoline) 25 mg EVERY 6 HOURS ORAL 05/20/16 18:00 06/19/16 17:59 05/23/16 11:51 Insulin Aspart (NovoLOG) BEFORE MEALS AND HS SUBQ 05/20/16 11:30 06/19/16 11:29 05/23/16 11:52 Lisinopril (Prinivil) 20 mg DAILY ORAL 05/20/16 10:00 06/19/16 09:59 05/23/16 09:16 Lorazepam (Ativan 2mg/ml 1ml) 0.5 mg Q4H PRN IV For Anxiety 05/20/16 10:00 05/27/16 09:59 05/21/16 02:07 Morphine Sulfate (Morphine Sulfate) 1 mg Q4H PRN IVP PAIN 4-10 05/20/16 10:00 05/27/16 09:59 05/23/16 00:47 Ondansetron HCl (Zofran) 4 mg Q6H PRN IVP Nausea & Vomiting 05/20/16 10:00 06/19/16 09:59 Piperacillin Sod/ Tazobactam Sod/ Dextrose (Zosyn/D5W) 110 ml @ 27.5 mls/hr EVERY 8 HOURS IVPB 05/21/16 14:00 05/26/16 13:59 05/23/16 13:19 Polyethylene Glycol (Miralax) 17 gm HSPRN PRN ORAL Constipation 05/20/16 21:00 06/19/16 20:59 Vancomycin HCl (Vanco rx to dose) 1 ea DAILY PRN MISC . 05/21/16 09:00 06/20/16 08:59 Vancomycin HCl/ Dextrose (Vancomycin/D5W) 275 ml @ 183.708 mls/hr Q12HR@0400,1600 IVPB 05/20/16 16:00 05/25/16 15:59 05/23/16 04:05 Warfarin Sodium (Coumadin per pharmacy) 1 ea DAILY PRN MISC Per rx protocol 05/20/16 10:15 06/19/16 10:14 Warfarin Sodium (Coumadin) 4 mg COUMADIN PO 05/23/16 17:00 05/23/16 17:01 Zolpidem Tartrate (Ambien) 5 mg HSPRN PRN ORAL Insomnia 05/20/16 21:00 06/19/16 20:59 05/21/16 21:08 AMARIS POWERS May 23, 2016 15:03
--- NOTE | 2016-05-23 15:06 | Cardiac Electrophysiology PN ---
Assessment/Plan Assessment/Plan 1. Transient bradycardia due to vagal effect of colonoscopy and very high dose of Coreg 50 mg twice a day.No recurrence after Coreg decreased to 25 mg twice a day. 2. Cardiomyopathy with ejection fraction of 45%. Continue lisinopril 20 mg daily, Coreg 25 bid, Lasix 40 mg twice a day and hydralazine 25 mg every six hours. 3. 15 beats of NSVT. Rule out for NM. Nuclear stress test in am. 4. Anemia. The patient underwent esophagogastroduodenoscopy and colonoscopy by Dr. Lane , found hiatal hernia and two polyps. 5. Left foot gangrene with diabetic foot ulcer. 6. Intracardiac mural thrombus on Coumadin. 7. Diabetes and chronic anemia. 8. Bilateral LE PVD by Marbin Tesfaye. MARIA VICTORIA RN Subjective Subjective Comfortable in NAD. No further nettie on Coreg 25 bid.. Objective Last 24 Hour Vital Signs Date Time Temp Pulse Resp B/P Pulse Ox O2 Delivery O2 Flow Rate FiO2 05/23/16 12:00 97.5 73 18 128/69 95 05/23/16 11:51 128/69 05/23/16 11:27 73 05/23/16 09:16 74 129/87 05/23/16 09:16 129/87 05/23/16 08:00 98.1 74 18 129/87 98 Room Air 05/23/16 07:34 79 05/23/16 06:37 128/60 05/23/16 04:20 97.9 78 20 157/78 95 Room Air 05/23/16 04:00 66 05/23/16 01:00 66 05/23/16 00:46 124/59 05/23/16 00:10 97.0 70 20 124/59 94 Room Air 05/23/16 00:00 73 05/22/16 20:55 96 142/66 05/22/16 20:00 69 05/22/16 20:00 98.4 93 22 147/61 93 Room Air 05/22/16 19:05 136/72 05/22/16 16:00 65 05/22/16 16:00 97.9 79 20 133/76 97 Room Air Intake and Output 05/22/16 05/23/16 19:00 07:00 Intake Total 504.9 ml 702.500 ml Output Total 500 ml 500 ml Balance 4.9 ml 202.500 ml Intake Oral 400 ml IV Total 504.9 ml 302.500 ml Output Urine Total 500 ml 500 ml Laboratory Tests Test 05/23/16 06:45 Prothrombin Time 16.6 SEC (9.30-11.50) H Prothromb Time International Ratio 1.6 (0.9-1.1) H Objective HEAD AND NECK: Shows normal jugular venous distention. LUNGS: Decreased breath sounds. CARDIOVASCULAR: Shows regular S1 and S2 with no gallop or murmur. ABDOMEN: Soft. EXTREMITIES: Have 1+ pitting edema as well as gangrene of the skin as well as right big toe SHERRILL PENDLETON May 23, 2016 15:06
--- NOTE | 2016-05-23 15:57 | Infectious Diseases Prog Note ---
Assessment/Plan Problems: (1) Toe gangrene Assessment & Plan: wound is growing multiple organisms , but MRI is negative for osteomyelitis, blood culture is negative . continue vancomycin, and zosyn to cover for ESBL producing E coli , recommend amputation of the big toe to eliminate the source of sepsis , may need vascular clearance before amputation. recommend 4-6 weeks of vancomycin and zosyn therapy after amputation is done. (2) Open wound of both legs with complication Assessment & Plan: continue local wound care as per wound care service, and off loading , continue wide spectrum antibiotics (3) Sepsis Assessment & Plan: due to the above, continue vancomycin, and zosyn , blood culture is negative (4) Coagulopathy Assessment & Plan: due to comuadin, improving, monitor INR (5) DM (diabetes mellitus) Assessment & Plan: recommend tight glycemic control to keep blood glucose between 80-120 Subjective Constitutional: Denies: anorexia, chills, drenching sweats, fatigue, fever, no symptoms, other HEENT: Denies: congestion, coryza, dysphagia, hearing change, no symptoms, other, visual change Respiratory: Denies: dry cough, no symptoms, other, productive cough, shortness of breath Breasts: Denies: discharge, no symptoms, other, swelling, tenderness Cardiovascular: Denies: chest pain, dyspnea on exertion, no symptoms, other, palpitations Gastrointestinal/Abdominal: Denies: bloating, blood in stool, constipation, diarrhea, nausea, no symptoms, other, vomiting Genitourinary: Denies: dysuria, frequency, hematuria, last menstrual period, no symptoms, nocturia, other, vaginal bleed/discharge Neurologic: Denies: confusion, headache, no symptoms, numbness, other, weakness Psychiatric: Denies: anxiety, depression, no symptoms, other Skin: Reports: ulcer Musculoskeletal: Denies: no symptoms, other, pain, stiffness, swelling Allergies: Coded Allergies: NO KNOWN ALLERGIES (Unverified Allergy, Unknown, 03/07/15) Objective Vital Signs Last 24 Hour Vital Signs Date Time Temp Pulse Resp B/P Pulse Ox O2 Delivery O2 Flow Rate FiO2 05/23/16 12:00 97.5 73 18 128/69 95 05/23/16 11:51 128/69 05/23/16 11:27 73 05/23/16 09:16 74 129/87 05/23/16 09:16 129/87 3/13/17 08:00 98.1 74 18 129/87 98 Room Air 05/23/16 07:34 79 05/23/16 06:37 128/60 05/23/16 04:20 97.9 78 20 157/78 95 Room Air 05/23/16 04:00 66 05/23/16 01:00 66 05/23/16 00:46 124/59 05/23/16 00:10 97.0 70 20 124/59 94 Room Air 05/23/16 00:00 73 05/22/16 20:55 96 142/66 05/22/16 20:00 69 05/22/16 20:00 98.4 93 22 147/61 93 Room Air 05/22/16 19:05 136/72 05/22/16 16:00 65 05/22/16 16:00 97.9 79 20 133/76 97 Room Air Height (Feet): 5 Height (Inches): 7.00 Weight (Pounds): 239 General Appearance: WD/WN, no acute distress HEENT: normocephalic, atraumatic, anicteric, mucous membranes moist Respiratory/Chest: chest wall non-tender, lungs clear, normal breath sounds, no respiratory distress, no accessory muscle use Cardiovascular: normal peripheral pulses, normal rate, regular rhythm, no gallop/murmur Abdomen: normal bowel sounds, soft, non tender, no organomegaly, non distended , no mass Extremities: no cyanosis, no clubbing Skin: ulcers, other - right big toe gangren with large wound Laboratory Tests Test 05/23/16 06:45 05/23/16 15:20 Prothrombin Time 16.6 SEC (9.30-11.50) H Prothromb Time International Ratio 1.6 (0.9-1.1) H Sodium Level Pending Potassium Level Pending Chloride Level Pending Carbon Dioxide Level Pending Blood Urea Nitrogen Pending Creatinine Pending Estimat Glomerular Filtration Rate Pending Glucose Level Pending Calcium Level Pending Random Vancomycin Level Pending Current Medications Medications (Trade) Dose Ordered Sig/Anh Route PRN Reason Start Time Stop Time Status Last Admin Dose Admin Acetaminophen (Tylenol) 650 mg Q4H PRN ORAL T>100.5 05/20/16 10:00 06/19/16 09:59 05/20/16 21:34 Al Hydroxide/Mg Hydroxide (Mylanta II) 30 ml Q6H PRN ORAL dyspepsia 05/20/16 10:00 06/19/16 09:59 Atorvastatin Calcium (Lipitor) 40 mg BEDTIME ORAL 05/20/16 21:00 06/19/16 20:59 05/22/16 20:54 Carvedilol 25 mg 25 mg EVERY 12 HOURS ORAL 05/21/16 21:00 06/20/16 20:59 05/23/16 09:16 Collagenase (Santyl) 1 applic DAILY TOPIC 05/20/16 10:00 06/19/16 09:59 05/23/16 09:16 Dextrose (Dextrose 50%) STAT PRN IV Hypoglycemia 05/21/16 07:00 06/20/16 06:59 Furosemide (Lasix) 40 mg TWICE A DAY ORAL 05/20/16 10:00 06/19/16 09:59 05/23/16 09:16 Hydralazine HCl (Apresoline) 25 mg EVERY 6 HOURS ORAL 05/20/16 18:00 06/19/16 17:59 05/23/16 11:51 Insulin Aspart (NovoLOG) BEFORE MEALS AND HS SUBQ 05/20/16 11:30 06/19/16 11:29 05/23/16 11:52 Lisinopril (Prinivil) 20 mg DAILY ORAL 05/20/16 10:00 06/19/16 09:59 05/23/16 09:16 Lorazepam (Ativan 2mg/ml 1ml) 0.5 mg Q4H PRN IV For Anxiety 05/20/16 10:00 05/27/16 09:59 05/21/16 02:07 Morphine Sulfate (Morphine Sulfate) 1 mg Q4H PRN IVP PAIN 4-10 05/20/16 10:00 05/27/16 09:59 05/23/16 00:47 Ondansetron HCl (Zofran) 4 mg Q6H PRN IVP Nausea & Vomiting 05/20/16 10:00 06/19/16 09:59 Piperacillin Sod/ Tazobactam Sod/ Dextrose (Zosyn/D5W) 110 ml @ 27.5 mls/hr EVERY 8 HOURS IVPB 05/21/16 14:00 05/26/16 13:59 05/23/16 13:19 Polyethylene Glycol (Miralax) 17 gm HSPRN PRN ORAL Constipation 05/20/16 21:00 06/19/16 20:59 Vancomycin HCl (Vanco rx to dose) 1 ea DAILY PRN MISC . 05/21/16 09:00 06/20/16 08:59 Vancomycin HCl/ Dextrose (Vancomycin/D5W) 275 ml @ 183.708 mls/hr Q12HR@0400,1600 IVPB 05/20/16 16:00 05/25/16 15:59 05/23/16 04:05 Warfarin Sodium (Coumadin per pharmacy) 1 ea DAILY PRN MISC Per rx protocol 05/20/16 10:15 06/19/16 10:14 Warfarin Sodium (Coumadin) 4 mg COUMADIN PO 05/23/16 17:00 05/23/16 17:01 Zolpidem Tartrate (Ambien) 5 mg HSPRN PRN ORAL Insomnia 05/20/16 21:00 06/19/16 20:59 05/21/16 21:08 Anju Judd M.D. May 23, 2016 15:56
[2016-05-23 16:00] VITALS: BP 126/68
[2016-05-23 16:32] LABS: ANION GAP 9 (5-15); CALCIUM 8.7 mg/dL (8.6-10.2); CARBON DIOXIDE 34 mEQ/L (20-30); CHLORIDE 95 mEQ/L (98-107); CREATININE 1.1 mg/dL (0.5-0.9); GLOMERULAR FILTRATION RATE > 60 mL/min (>60); HEMOLYSIS 0; POTASSIUM 3.1 mEQ/L (3.4-4.9); SODIUM 138 mEQ/L (135-145)
[2016-05-23] MEDS ORDERED: Warfarin Sodium 4mg PO SCH (17:00)
--- NOTE | 2016-05-23 21:55 | General Progress Note ---
Assessment/Plan Assessment/Plan Assessment - gastritis, colon polyp - anemia - stable - functional decline - HTN - DM - ventricular clot Recommendations - push po - OK for anticoagulation from GI standpoint - follow labs Subjective Allergies: Coded Allergies: NO KNOWN ALLERGIES (Unverified Allergy, Unknown, 03/07/15) Subjective sleepy poor po no abd complaints withdrawn and non interactive Objective Last 24 Hour Vital Signs Date Time Temp Pulse Resp B/P Pulse Ox O2 Delivery O2 Flow Rate FiO2 05/23/16 21:23 73 115/69 05/23/16 18:00 115/69 05/23/16 12:00 97.5 73 18 128/69 95 05/23/16 11:51 128/69 05/23/16 11:27 73 05/23/16 09:16 74 129/87 05/23/16 09:16 129/87 05/23/16 08:00 98.1 74 18 129/87 98 Room Air 05/23/16 07:34 79 05/23/16 06:37 128/60 05/23/16 04:20 97.9 78 20 157/78 95 Room Air 05/23/16 04:00 66 05/23/16 01:00 66 05/23/16 00:46 124/59 05/23/16 00:10 97.0 70 20 124/59 94 Room Air 05/23/16 00:00 73 Intake and Output 05/22/16 05/23/16 19:00 07:00 Intake Total 504.9 ml 702.500 ml Output Total 500 ml 500 ml Balance 4.9 ml 202.500 ml Intake Oral 400 ml IV Total 504.9 ml 302.500 ml Output Urine Total 500 ml 500 ml Laboratory Tests 05/23/16 06:45: Prothrombin Time 16.6H, Prothromb Time International Ratio 1.6H 05/23/16 15:20: Sodium Level 138, Potassium Level 3.1L, Chloride Level 95L, Carbon Dioxide Level 34H, Anion Gap 9, Blood Urea Nitrogen 11, Creatinine 1.1H, Estimat Glomerular Filtration Rate > 60, Glucose Level 178H, Calcium Level 8.7, Random Vancomycin Level 18.7 Height (Feet): 5 Height (Inches): 7.00 Weight (Pounds): 239 Objective WDWN NCAT supple CTA RRR Soft ND NT (+) LE wounds SHRUTI DE ANDA May 23, 2016 21:55
--- NOTE | 2016-05-23 23:20 | Podiatric Progress Note ---
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 Improving. The wound is no longer malodorous and there is no purulence noted. Decreased drainage noted Bilateral legs with superficial leg ulcers. Stable. - Possible transfer to [facility] for angiogram. Will continue to follow the patient - Continue daily wound care. Once patient is medically stable with clearance from cardiology and vascular surgeon is obtained will consider amputation - Continue antibiotics per infectious disease department recommendations - Offload heels Subjective Reason for consult Bilateral lower extremity wounds Allergies: Coded Allergies: NO KNOWN ALLERGIES (Unverified Allergy, Unknown, 03/07/15) Subjective Patient is alert today. She states that she feels like her wounds are improving. No pain, nausea, vomiting, fevers, or chills Objective Exam Last 24 Hour Vital Signs Date Time Temp Pulse Resp B/P Pulse Ox O2 Delivery O2 Flow Rate FiO2 05/23/16 21:23 73 115/69 05/23/16 18:00 115/69 05/23/16 12:00 97.5 73 18 128/69 95 05/23/16 11:51 128/69 05/23/16 11:27 73 05/23/16 09:16 74 129/87 05/23/16 09:16 129/87 05/23/16 08:00 98.1 74 18 129/87 98 Room Air 05/23/16 07:34 79 05/23/16 06:37 128/60 05/23/16 04:20 97.9 78 20 157/78 95 Room Air 05/23/16 04:00 66 05/23/16 01:00 66 05/23/16 00:46 124/59 05/23/16 00:10 97.0 70 20 124/59 94 Room Air 05/23/16 00:00 73 Laboratory Tests Test 05/23/16 06:45 05/23/16 15:20 Prothrombin Time 16.6 SEC (9.30-11.50) H Prothromb Time International Ratio 1.6 (0.9-1.1) H Sodium Level 138 mEQ/L (135-145) Potassium Level 3.1 mEQ/L (3.4-4.9) L Chloride Level 95 mEQ/L (98-107) L Carbon Dioxide Level 34 mEQ/L (20-30) H Anion Gap 9 (5-15) Blood Urea Nitrogen 11 mg/dL (7-23) Creatinine 1.1 mg/dL (0.5-0.9) H Estimat Glomerular Filtration Rate > 60 mL/min (>60) Glucose Level 178 mg/dL (74-106) H Calcium Level 8.7 mg/dL (8.6-10.2) Random Vancomycin Level 18.7 ug/mL Microbiology Date/Time Source Procedure Growth Status 05/18/16 19:30 Blood Blood Culture - Preliminary NO GROWTH AFTER 4 DAYS Resulted 05/17/16 07:48 Nasal Nares MRSA Culture - Final NO METHICILLIN RESISTANT STAPH AUREUS... Complete 05/19/16 06:00 Foot Right Gram Stain - Final Complete 05/19/16 06:00 Wound Culture - Final Morganella Morg Spp Morganii Klebsiella Oxytoca Diphtheroids Complete Exam Narrative The right hallux gangrenous wound is stabilizing. Malodor has improved. No purulence noted. Wound is being packed with iodoform and covered with wet to dry dressing using betadine. Bilateral leg superficial leg wounds are stable. Adán Singh DPM May 23, 2016 23:20
[2016-05-24 00:34] VITALS: BP 123/74
[2016-05-24] MEDS: Vancomycin 750 MG in D5W 275 ML IVPB SCH ×2 (04:16→16:13)
[2016-05-24 04:22] VITALS: BP 132/67
[2016-05-24] MEDS: NovoLOG Insulin Flexpen SUBQ SCH ×4 (06:30→21:34)
[2016-05-24] MEDS: Piperacillin/Tazobactam 3.375 GM in D5W 110 ML IVPB SCH ×3 (06:35→21:31)
[2016-05-24] MEDS: HydrALAZINE 10mg Tab ORAL SCH ×4 (06:36→17:19)
[2016-05-24 08:00] VITALS: BP 165/89
[2016-05-24] MEDS: Carvedilol 25mg Tab ORAL SCH ×2 (09:00→21:31)
[2016-05-24] MEDS: Morphine Sulfate 2mg/ml Inj IVP PRN ×2 (09:29→22:51)
[2016-05-24] MEDS: Furosemide 40mg tab ORAL SCH ×2 (10:23→17:22)
[2016-05-24] MEDS: Lisinopril 20mg tab ORAL SCH (10:23)
--- NOTE | 2016-05-24 12:05 | General Progress Note ---
Assessment/Plan Problem List: (1) Dizziness ICD Codes: R42 - Dizziness and giddiness SNOMED: 391271698 (2) HTN (hypertension) ICD Codes: I10 - Essential (primary) hypertension SNOMED: 57603343 (3) DM (diabetes mellitus) ICD Codes: E11.9 - Type 2 diabetes mellitus without complications SNOMED: 40985917 (4) Anemia, chronic disease ICD Codes: D63.8 - Anemia in other chronic diseases classified elsewhere; T45.515A - Adverse effect of anticoagulants, initial encounter SNOMED: 483582077, 440140260 (5) Coagulopathy ICD Codes: D68.9 - Coagulation defect, unspecified SNOMED: 90738174 (6) V-tach ICD Codes: I47.2 - Ventricular tachycardia SNOMED: 77214120 (7) Ventricular mural thrombus SNOMED: 15285553 Status: progressing Assessment/Plan foot gangrene s/p bradycardia post endoscopy.dr samaniego was consulted coaguluapthy improving\ dc planning to any facility that is willing to accept her Subjective ROS Limited/Unobtainable: Yes Constitutional: Reports: no symptoms Allergies: Coded Allergies: NO KNOWN ALLERGIES (Unverified Allergy, Unknown, 03/07/15) Objective Last 24 Hour Vital Signs Date Time Temp Pulse Resp B/P Pulse Ox O2 Delivery O2 Flow Rate FiO2 05/24/16 10:23 165/89 05/24/16 09:00 80 165/89 05/24/16 08:00 97.0 80 18 165/89 93 Room Air 05/24/16 06:36 132/67 05/24/16 04:22 98.7 78 19 132/67 97 Room Air 05/24/16 04:00 71 05/24/16 00:34 98.8 76 18 123/74 95 Room Air 05/24/16 00:00 70 05/24/16 00:00 125/62 05/23/16 21:23 73 115/69 05/23/16 20:00 75 05/23/16 18:00 115/69 05/23/16 16:00 81 05/23/16 16:00 98.2 68 17 126/68 97 Room Air Intake and Output 05/23/16 05/24/16 19:00 07:00 Intake Total 537.5 ml 275.000 ml Output Total 460 ml 1555 ml Balance 77.5 ml -1280.000 ml Intake Oral 400 ml IV Total 137.5 ml 275.000 ml Output Urine Total 460 ml 1555 ml Laboratory Tests 05/23/16 15:20: Sodium Level 138, Potassium Level 3.1L, Chloride Level 95L, Carbon Dioxide Level 34H, Anion Gap 9, Blood Urea Nitrogen 11, Creatinine 1.1H, Estimat Glomerular Filtration Rate > 60, Glucose Level 178H, Calcium Level 8.7, Random Vancomycin Level 18.7 Height (Feet): 5 Height (Inches): 7.00 Weight (Pounds): 241 EENT: PERRL/EOMI Neck: supple Cardiovascular: normal rate Respiratory/Chest: lungs clear Abdomen: soft Brittny Campos MD May 24, 2016 12:05
[2016-05-24 12:15] VITALS: BP 143/70
--- NOTE | 2016-05-24 12:18 | Diagnostic Imaging Report ---
APPROVED REPORT CPT Code: 44216 Symptoms Comments: Hx bilateral non-healing ulcers Risk Factors Cardiac Disease Diabetes Technically difficult study due to vessel depth ([id number] thigh and calf area), and patient's inability to tolerate study. [id number] thigh and mid-calf area not well visualized. RIGHT LEG: Common femoral artery waveform analysis is elevated. Color flow duplex sonography reveals calcification throughout the superficial femoral and popliteal arteries. A minimal stenosis is seen in the proximal superficial femoral artery, and a moderate stenosis is seen in the popliteal artery. There is no evidence of occlusion within these segments. The tibioperoneal trunk was not well visualized. The distal posterior tibial, anterior tibial and dorsalis pedis arteries are also moderately calcified. Doppler tibial artery waveform analysis is compatible with severe ischemia. LEFT LEG: Common femoral artery waveform analysis is diminished. Color flow duplex sonography reveals calcification throughout the superficial femoral and popliteal arteries. An occlusion is seen in the proximal superficial femoral artery, and a severe stenosis is seen in the popliteal artery. The tibioperoneal trunk was not well visualized. The distal posterior tibial, anterior tibial and dorsalis pedis arteries are also moderately calcified. Doppler tibial artery waveform analysis is compatible with severe ischemia. FREDI Rudolph was notified of abnormal results at 2015 hours. Incidental finding: Bilateral enlarged lymph nodes noted in the inguinal area, largest measuring 1.5 cm x 1.1 cm on the right, and 2.6 cm x 0.9 cm on the left.
[2016-05-24 14:35] LABS: TROPONIN I < 0.30 ng/mL (<=0.30)
[2016-05-24 15:36] LABS: PROTHROMBIN TIME 21.1 SEC (9.30-11.50)
[2016-05-24 16:00] VITALS: BP 125/54
--- NOTE | 2016-05-24 16:21 | Cardiac Electrophysiology PN ---
Assessment/Plan Assessment/Plan 1. Transient bradycardia due to vagal effect of colonoscopy and high dose of Coreg 50 mg twice a day.No recurrence after Coreg decreased to 25 mg twice a day. 2. Cardiomyopathy with ejection fraction of 45%. Continue lisinopril 20 mg daily, Coreg 25 bid, Lasix 40 mg twice a day and hydralazine 25 mg every six hours. 3. 15 beats of NSVT. Rule out for FL. Refused Nuclear stress test today. 4. Anemia. S/P EGD and colonoscopy by Dr. Lane , found hiatal hernia and two polyps. 5. Left foot gangrene with diabetic foot ulcer. 6. Intracardiac mural thrombus on Coumadin. 7. Diabetes and chronic anemia. 8. Bilateral LE PVD by Marbin Tesfaye. MARIA VICTORIA RN Subjective Subjective Comfortable in NAD. No further nettie episodes.Refused stress test. Objective Last 24 Hour Vital Signs Date Time Temp Pulse Resp B/P Pulse Ox O2 Delivery O2 Flow Rate FiO2 05/24/16 12:15 97.0 75 18 143/70 98 Room Air 05/24/16 12:10 165/89 05/24/16 12:00 75 05/24/16 10:23 165/89 05/24/16 09:00 80 165/89 05/24/16 08:00 97.0 80 18 165/89 93 Room Air 05/24/16 08:00 78 05/24/16 06:36 132/67 05/24/16 04:22 98.7 78 19 132/67 97 Room Air 05/24/16 04:00 71 05/24/16 00:34 98.8 76 18 123/74 95 Room Air 05/24/16 00:00 70 05/24/16 00:00 125/62 05/23/16 21:23 73 115/69 05/23/16 20:00 75 05/23/16 18:00 115/69 Intake and Output 05/23/16 05/24/16 19:00 07:00 Intake Total 537.5 ml 275.000 ml Output Total 460 ml 1555 ml Balance 77.5 ml -1280.000 ml Intake Oral 400 ml IV Total 137.5 ml 275.000 ml Output Urine Total 460 ml 1555 ml Laboratory Tests Test 05/24/16 13:57 05/24/16 15:00 Troponin I < 0.30 ng/mL (<=0.30) Prothrombin Time 21.1 SEC (9.30-11.50) H Prothromb Time International Ratio 2.0 (0.9-1.1) H Objective HEAD AND NECK: Shows normal jugular venous distention. LUNGS: Decreased breath sounds. CARDIOVASCULAR: Shows regular S1 and S2 with no gallop or murmur. ABDOMEN: Soft. EXTREMITIES: 1+ pitting edema and gangrene of the skin as well as right big toe SHERRILL PENDLETON May 24, 2016 16:21
--- NOTE | 2016-05-24 16:21 | Infectious Diseases Prog Note ---
Assessment/Plan Problems: (1) Toe gangrene Assessment & Plan: with wound culture growing multiple organisms all sensitive to zosyn , but MRI is negative for osteomyelitis, and blood culture ruled out bacteremia . continue vancomycin, and zosyn to cover for ESBL producing E coli , recommend amputation of the big toe to eliminate the source of sepsis , may need vascular clearance before amputation. recommend 4-6 weeks of vancomycin and zosyn therapy after amputation is done. (2) Open wound of both legs with complication Assessment & Plan: continue local wound care as per wound care service, and off loading , continue wide spectrum antibiotics (3) Sepsis Assessment & Plan: due to the above, continue vancomycin, and zosyn , blood culture is negative (4) Coagulopathy Assessment & Plan: due to comuadin, improving, monitor INR (5) DM (diabetes mellitus) Assessment & Plan: recommend tight glycemic control to keep blood glucose between 80-120 Subjective Constitutional: Denies: anorexia, chills, drenching sweats, fatigue, fever, no symptoms, other HEENT: Denies: congestion, coryza, dysphagia, hearing change, no symptoms, other, visual change Respiratory: Denies: dry cough, no symptoms, other, productive cough, shortness of breath Breasts: Denies: discharge, no symptoms, other, swelling, tenderness Cardiovascular: Denies: chest pain, dyspnea on exertion, no symptoms, other, palpitations Gastrointestinal/Abdominal: Denies: bloating, blood in stool, constipation, diarrhea, nausea, no symptoms, other, vomiting Genitourinary: Denies: dysuria, frequency, hematuria, last menstrual period, no symptoms, nocturia, other, vaginal bleed/discharge Neurologic: Denies: confusion, headache, no symptoms, numbness, other, weakness Psychiatric: Denies: anxiety, depression, no symptoms, other Skin: Reports: ulcer Allergies: Coded Allergies: NO KNOWN ALLERGIES (Unverified Allergy, Unknown, 03/07/15) Objective Vital Signs Last 24 Hour Vital Signs Date Time Temp Pulse Resp B/P Pulse Ox O2 Delivery O2 Flow Rate FiO2 05/24/16 12:15 97.0 75 18 143/70 98 Room Air 05/24/16 12:10 165/89 05/24/16 12:00 75 05/24/16 10:23 165/89 05/24/16 09:00 80 165/89 05/24/16 08:00 97.0 80 18 165/89 93 Room Air 05/24/16 08:00 78 05/24/16 06:36 132/67 05/24/16 04:22 98.7 78 19 132/67 97 Room Air 05/24/16 04:00 71 05/24/16 00:34 98.8 76 18 123/74 95 Room Air 05/24/16 00:00 70 05/24/16 00:00 125/62 05/23/16 21:23 73 115/69 05/23/16 20:00 75 05/23/16 18:00 115/69 Height (Feet): 5 Height (Inches): 7.00 Weight (Pounds): 241 General Appearance: WD/WN, no acute distress HEENT: normocephalic, atraumatic, anicteric, mucous membranes moist Respiratory/Chest: chest wall non-tender, lungs clear, normal breath sounds, no respiratory distress Cardiovascular: normal peripheral pulses, normal rate, regular rhythm, no gallop/murmur Abdomen: normal bowel sounds, soft, non tender, no organomegaly, non distended , no mass Extremities: other - right toe gangren Skin: no rash, no lesions, ulcers - on both legs Laboratory Tests Test 05/24/16 13:57 05/24/16 15:00 Troponin I < 0.30 ng/mL (<=0.30) Prothrombin Time 21.1 SEC (9.30-11.50) H Prothromb Time International Ratio 2.0 (0.9-1.1) H Current Medications Medications (Trade) Dose Ordered Sig/Anh Route PRN Reason Start Time Stop Time Status Last Admin Dose Admin Acetaminophen (Tylenol) 650 mg Q4H PRN ORAL T>100.5 05/20/16 10:00 06/19/16 09:59 05/20/16 21:34 Al Hydroxide/Mg Hydroxide (Mylanta II) 30 ml Q6H PRN ORAL dyspepsia 05/20/16 10:00 06/19/16 09:59 Atorvastatin Calcium (Lipitor) 40 mg BEDTIME ORAL 05/20/16 21:00 06/19/16 20:59 05/23/16 21:09 Carvedilol 25 mg 25 mg EVERY 12 HOURS ORAL 05/21/16 21:00 06/20/16 20:59 05/23/16 21:23 Collagenase (Santyl) 1 applic DAILY TOPIC 05/20/16 10:00 06/19/16 09:59 05/24/16 09:00 Dextrose (Dextrose 50%) STAT PRN IV Hypoglycemia 05/21/16 07:00 06/20/16 06:59 Furosemide (Lasix) 40 mg TWICE A DAY ORAL 05/20/16 10:00 06/19/16 09:59 05/24/16 10:23 Hydralazine HCl (Apresoline) 25 mg EVERY 6 HOURS ORAL 05/20/16 18:00 06/19/16 17:59 05/24/16 12:10 Insulin Aspart (NovoLOG) BEFORE MEALS AND HS SUBQ 05/20/16 11:30 06/19/16 11:29 05/24/16 12:11 Lisinopril (Prinivil) 20 mg DAILY ORAL 05/20/16 10:00 06/19/16 09:59 05/24/16 10:23 Lorazepam (Ativan 2mg/ml 1ml) 0.5 mg Q4H PRN IV For Anxiety 05/20/16 10:00 05/27/16 09:59 05/21/16 02:07 Morphine Sulfate (Morphine Sulfate) 1 mg Q4H PRN IVP PAIN 4-10 05/20/16 10:00 05/27/16 09:59 05/24/16 09:29 Ondansetron HCl (Zofran) 4 mg Q6H PRN IVP Nausea & Vomiting 05/20/16 10:00 06/19/16 09:59 Piperacillin Sod/ Tazobactam Sod/ Dextrose (Zosyn/D5W) 110 ml @ 27.5 mls/hr EVERY 8 HOURS IVPB 05/21/16 14:00 05/29/16 13:59 05/24/16 13:36 Polyethylene Glycol (Miralax) 17 gm HSPRN PRN ORAL Constipation 05/20/16 21:00 06/19/16 20:59 Vancomycin HCl (Vanco rx to dose) 1 ea DAILY PRN MISC . 05/21/16 09:00 06/20/16 08:59 Vancomycin HCl/ Dextrose (Vancomycin/D5W) 275 ml @ 183.708 mls/hr Q12HR@0400,1600 IVPB 05/20/16 16:00 05/29/16 15:59 05/24/16 16:13 Warfarin Sodium (Coumadin per pharmacy) 1 ea DAILY PRN MISC Per rx protocol 05/20/16 10:15 06/19/16 10:14 Warfarin Sodium (Coumadin) 4 mg COUMADIN PO 05/24/16 17:00 05/29/16 16:59 Zolpidem Tartrate (Ambien) 5 mg HSPRN PRN ORAL Insomnia 05/20/16 21:00 06/19/16 20:59 05/21/16 21:08 Anju Judd M.D. May 24, 2016 16:21
--- NOTE | 2016-05-24 16:49 | General Progress Note ---
Assessment/Plan Assessment/Plan ASSESSMENT: 1. Supratherapeutic INR likely secondary to Coumadin overdose. Improved, now is back on coumadin 2. 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 3. Anemia of chronic disease 4. R.o GI bleed with scope per Dr. Lane 5. Decreased hemoglobin and hematocrit, rule out GI bleed 6. Leukocytosis and neutrophilia, rule out infxn 7. Hypertension. 8. Cardiomegaly 9. History of chf PLAN: 1. Monitor counts. 2. Back on coumadin 3. Inr goal 2-3 4. The patient is currently without bleeding. 5. Appreciate Pulmonary Critical Care and Nephro recs 6. Potential transfer for angiogram to [facility] 7. Staff Thank you, Lazarus Jean-Baptiste MD Subjective Constitutional: Reports: no symptoms HEENT: Reports: no symptoms Cardiovascular: Reports: no symptoms Respiratory: Reports: no symptoms Gastrointestinal/Abdominal: Reports: poor appetite Genitourinary: Reports: no symptoms 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: Reports: no symptoms Endocrine: Reports: no symptoms Hematologic/Lymphatic: Reports: anemia Allergies: Coded Allergies: NO KNOWN ALLERGIES (Unverified Allergy, Unknown, 03/07/15) Subjective without bleeding, inr 2-3 Objective Last 24 Hour Vital Signs Date Time Temp Pulse Resp B/P Pulse Ox O2 Delivery O2 Flow Rate FiO2 05/24/16 12:15 97.0 75 18 143/70 98 Room Air 05/24/16 12:10 165/89 05/24/16 12:00 75 05/24/16 10:23 165/89 05/24/16 09:00 80 165/89 05/24/16 08:00 97.0 80 18 165/89 93 Room Air 05/24/16 08:00 78 05/24/16 06:36 132/67 05/24/16 04:22 98.7 78 19 132/67 97 Room Air 05/24/16 04:00 71 05/24/16 00:34 98.8 76 18 123/74 95 Room Air 05/24/16 00:00 70 05/24/16 00:00 125/62 05/23/16 21:23 73 115/69 05/23/16 20:00 75 05/23/16 18:00 115/69 Intake and Output 05/23/16 05/24/16 19:00 07:00 Intake Total 537.5 ml 275.000 ml Output Total 460 ml 1555 ml Balance 77.5 ml -1280.000 ml Intake Oral 400 ml IV Total 137.5 ml 275.000 ml Output Urine Total 460 ml 1555 ml Laboratory Tests 05/24/16 13:57: Troponin I < 0.30 05/24/16 15:00: Prothrombin Time 21.1H, Prothromb Time International Ratio 2.0H Height (Feet): 5 Height (Inches): 7.00 Weight (Pounds): 241 General Appearance: alert EENT: TMs normal Neck: supple Cardiovascular: regular rhythm Respiratory/Chest: normal breath sounds Abdomen: non tender Extremities: non-tender Edema: 1+ Leg (L), 1+ Leg (R) Edema: mild edema Neurologic: alert Skin: warm/dry Lazarus Jean-Baptiste May 24, 2016 16:49
[2016-05-24] MEDS: Warfarin Sodium 4mg PO SCH (17:19)
--- NOTE | 2016-05-24 18:30 | Podiatric Progress Note ---
Assessment/Plan Patient Orin Longoria is a 66 year old female who was admitted on May 17, 2016 at 05: 50 with increased INR Problems: (1) Sepsis (2) Toe gangrene (3) Diabetic foot ulcer (4) Bilateral leg ulcer Assessment/Plan - Right hallux wound with improving malodor and drainage. Will wait to stabilize patient from cardiology standpoint and optimize blood flow by vascular surgeon prior to amputation. Arterial doppler studies show severe ischemia bilaterally - Continue antibiotics per infectious disease specialist - Continue daily dressing changes Subjective Reason for consult Bilateral lower extremity wounds with right hallux gangrene Allergies: Coded Allergies: NO KNOWN ALLERGIES (Unverified Allergy, Unknown, 03/07/15) Subjective Patient states no pain, nausea, vomiting, fevers, or chills. Objective Exam Last 24 Hour Vital Signs Date Time Temp Pulse Resp B/P Pulse Ox O2 Delivery O2 Flow Rate FiO2 05/24/16 17:19 125/54 05/24/16 16:00 97.3 79 20 125/54 98 Room Air 05/24/16 12:15 97.0 75 18 143/70 98 Room Air 05/24/16 12:10 165/89 05/24/16 12:00 75 05/24/16 10:23 165/89 05/24/16 09:00 80 165/89 05/24/16 08:00 97.0 80 18 165/89 93 Room Air 05/24/16 08:00 78 05/24/16 06:36 132/67 05/24/16 04:22 98.7 78 19 132/67 97 Room Air 05/24/16 04:00 71 05/24/16 00:34 98.8 76 18 123/74 95 Room Air 05/24/16 00:00 70 05/24/16 00:00 125/62 05/23/16 21:23 73 115/69 05/23/16 20:00 75 Laboratory Tests Test 05/24/16 13:57 05/24/16 15:00 Troponin I < 0.30 ng/mL (<=0.30) Prothrombin Time 21.1 SEC (9.30-11.50) H Prothromb Time International Ratio 2.0 (0.9-1.1) H Microbiology Date/Time Source Procedure Growth Status 05/18/16 19:30 Blood Blood Culture - Final NO GROWTH AFTER 5 DAYS Complete 05/17/16 07:48 Nasal Nares MRSA Culture - Final NO METHICILLIN RESISTANT STAPH AUREUS... Complete 05/19/16 06:00 Foot Right Gram Stain - Final Complete 05/19/16 06:00 Wound Culture - Final Morganella Morg Spp Morganii Klebsiella Oxytoca Diphtheroids Complete Exam Narrative Right hallux with gangrene and plantar ulcer that probes to bone and communicates to the dorsal surface of the foot. No purulence noted. Malodor has improved. Bilateral leg ulcers are improving with local wound care Adán Singh DPM May 24, 2016 18:30
--- NOTE | 2016-05-24 22:09 | General Progress Note ---
Assessment/Plan Assessment/Plan Assessment - gastritis, colon polyp - anemia - stable - functional decline - HTN - DM - toe gangrene Recommendations - push po - abx - wound care - follow labs Subjective Allergies: Coded Allergies: NO KNOWN ALLERGIES (Unverified Allergy, Unknown, 03/07/15) Subjective sleepy poor po no abd complaints more awake Objective Last 24 Hour Vital Signs Date Time Temp Pulse Resp B/P Pulse Ox O2 Delivery O2 Flow Rate FiO2 05/24/16 21:31 80 125/54 05/24/16 17:19 125/54 05/24/16 16:00 80 05/24/16 16:00 97.3 79 20 125/54 98 Room Air 05/24/16 12:15 97.0 75 18 143/70 98 Room Air 05/24/16 12:10 165/89 05/24/16 12:00 75 05/24/16 10:23 165/89 05/24/16 09:00 80 165/89 05/24/16 08:00 97.0 80 18 165/89 93 Room Air 05/24/16 08:00 78 05/24/16 06:36 132/67 05/24/16 04:22 98.7 78 19 132/67 97 Room Air 05/24/16 04:00 71 05/24/16 00:34 98.8 76 18 123/74 95 Room Air 05/24/16 00:00 70 05/24/16 00:00 125/62 Intake and Output 05/23/16 05/24/16 19:00 07:00 Intake Total 537.5 ml 275.000 ml Output Total 460 ml 1555 ml Balance 77.5 ml -1280.000 ml Intake Oral 400 ml IV Total 137.5 ml 275.000 ml Output Urine Total 460 ml 1555 ml Laboratory Tests 05/24/16 13:57: Troponin I < 0.30 05/24/16 15:00: Prothrombin Time 21.1H, Prothromb Time International Ratio 2.0H Height (Feet): 5 Height (Inches): 7.00 Weight (Pounds): 241 Objective WDWN NCAT supple CTA RRR Soft ND NT (+) LE wounds SHRUTI DE ANDA May 24, 2016 22:09
--- NOTE | 2016-05-24 22:24 | Pulmonology Progress Note ---
Assessment/Plan Problems: (1) Coagulopathy (2) Diabetic foot ulcer (3) Ventricular mural thrombus (4) HTN (hypertension) (5) DM (diabetes mellitus) (6) Anemia, chronic disease Assessment/Plan monitor heart rate venous dupplex negative cardio evaluation appreciated f/u h/h, pt/ptt continue antibiotics refusing stress test bradycardia resolved wound care Subjective ROS Limited/Unobtainable: No Constitutional: Reports: no symptoms HEENT: Repors: no symptoms Cardiovascular: Reports: no symptoms Allergies: Coded Allergies: NO KNOWN ALLERGIES (Unverified Allergy, Unknown, 03/07/15) Objective Last 24 Hour Vital Signs Date Time Temp Pulse Resp B/P Pulse Ox O2 Delivery O2 Flow Rate FiO2 05/24/16 21:31 80 125/54 05/24/16 17:19 125/54 05/24/16 16:00 80 05/24/16 16:00 97.3 79 20 125/54 98 Room Air 05/24/16 12:15 97.0 75 18 143/70 98 Room Air 05/24/16 12:10 165/89 05/24/16 12:00 75 05/24/16 10:23 165/89 05/24/16 09:00 80 165/89 05/24/16 08:00 97.0 80 18 165/89 93 Room Air 05/24/16 08:00 78 05/24/16 06:36 132/67 05/24/16 04:22 98.7 78 19 132/67 97 Room Air 05/24/16 04:00 71 05/24/16 00:34 98.8 76 18 123/74 95 Room Air 05/24/16 00:00 70 05/24/16 00:00 125/62 Intake and Output 05/23/16 05/24/16 19:00 07:00 Intake Total 537.5 ml 275.000 ml Output Total 460 ml 1555 ml Balance 77.5 ml -1280.000 ml Intake Oral 400 ml IV Total 137.5 ml 275.000 ml Output Urine Total 460 ml 1555 ml Objective General Appearance: WD/WN HEENT: normocephalic, atraumatic Respiratory/Chest: chest wall non-tender, crackles/rales Cardiovascular: normal peripheral pulses, normal rate Abdomen: normal bowel sounds, soft, non tender Genitourinary: normal external genitalia Extremities: no cyanosis, no clubbing, ulers and gangrene Skin: no rash, clean dressing on legs 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: event host II-XII grossly normal Laboratory Tests 05/24/16 13:57: Troponin I < 0.30 05/24/16 15:00: Prothrombin Time 21.1H, Prothromb Time International Ratio 2.0H Current Medications Medications (Trade) Dose Ordered Sig/Anh Route PRN Reason Start Time Stop Time Status Last Admin Dose Admin Acetaminophen (Tylenol) 650 mg Q4H PRN ORAL T>100.5 05/20/16 10:00 06/19/16 09:59 05/20/16 21:34 Al Hydroxide/Mg Hydroxide (Mylanta II) 30 ml Q6H PRN ORAL dyspepsia 05/20/16 10:00 06/19/16 09:59 Atorvastatin Calcium (Lipitor) 40 mg BEDTIME ORAL 05/20/16 21:00 06/19/16 20:59 05/24/16 21:32 Carvedilol 25 mg 25 mg EVERY 12 HOURS ORAL 05/21/16 21:00 06/20/16 20:59 05/24/16 21:31 Collagenase (Santyl) 1 applic DAILY TOPIC 05/20/16 10:00 06/19/16 09:59 05/24/16 09:00 Dextrose (Dextrose 50%) STAT PRN IV Hypoglycemia 05/21/16 07:00 06/20/16 06:59 Furosemide (Lasix) 40 mg TWICE A DAY ORAL 05/20/16 10:00 06/19/16 09:59 05/24/16 17:22 Hydralazine HCl (Apresoline) 25 mg EVERY 6 HOURS ORAL 05/20/16 18:00 06/19/16 17:59 05/24/16 17:19 Insulin Aspart (NovoLOG) BEFORE MEALS AND HS SUBQ 05/20/16 11:30 06/19/16 11:29 05/24/16 21:34 Lisinopril (Prinivil) 20 mg DAILY ORAL 05/20/16 10:00 06/19/16 09:59 05/24/16 10:23 Lorazepam (Ativan 2mg/ml 1ml) 0.5 mg Q4H PRN IV For Anxiety 05/20/16 10:00 05/27/16 09:59 05/21/16 02:07 Morphine Sulfate (Morphine Sulfate) 1 mg Q4H PRN IVP PAIN 4-10 05/20/16 10:00 05/27/16 09:59 05/24/16 09:29 Ondansetron HCl (Zofran) 4 mg Q6H PRN IVP Nausea & Vomiting 05/20/16 10:00 06/19/16 09:59 Piperacillin Sod/ Tazobactam Sod/ Dextrose (Zosyn/D5W) 110 ml @ 27.5 mls/hr EVERY 8 HOURS IVPB 05/21/16 14:00 05/29/16 13:59 05/24/16 21:31 Polyethylene Glycol (Miralax) 17 gm HSPRN PRN ORAL Constipation 05/20/16 21:00 06/19/16 20:59 Vancomycin HCl (Vanco rx to dose) 1 ea DAILY PRN MISC . 05/21/16 09:00 06/20/16 08:59 Vancomycin HCl/ Dextrose (Vancomycin/D5W) 275 ml @ 183.708 mls/hr Q12HR@0400,1600 IVPB 05/20/16 16:00 05/29/16 15:59 05/24/16 16:13 Warfarin Sodium (Coumadin per pharmacy) 1 ea DAILY PRN MISC Per rx protocol 05/20/16 10:15 06/19/16 10:14 Warfarin Sodium (Coumadin) 4 mg COUMADIN PO 05/24/16 17:00 05/29/16 16:59 05/24/16 17:19 Zolpidem Tartrate (Ambien) 5 mg HSPRN PRN ORAL Insomnia 05/20/16 21:00 06/19/16 20:59 05/21/16 21:08 AMARIS POWERS May 24, 2016 22:24
[2016-05-25] VITALS: BP 133/58
[2016-05-25] MEDS: HydrALAZINE 10mg Tab ORAL SCH ×3 (00:38→12:00)
[2016-05-25 04:00] VITALS: BP 135/60
[2016-05-25] MEDS: Vancomycin 750 MG in D5W 275 ML IVPB SCH ×3 (04:00→16:37)
[2016-05-25] MEDS: Piperacillin/Tazobactam 3.375 GM in D5W 110 ML IVPB SCH ×3 (06:33→21:17)
[2016-05-25] MEDS: NovoLOG Insulin Flexpen SUBQ SCH ×4 (06:33→21:18)
[2016-05-25 07:59] VITALS: BP 132/65
--- NOTE | 2016-05-25 08:11 | General Progress Note ---
Assessment/Plan Assessment/Plan ASSESSMENT: 1. Supratherapeutic INR likely secondary to Coumadin overdose. Improved, now is back on coumadin 2. 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 3. Anemia of chronic disease 4. R/o GI bleed with, GI service on board 5. Ventricular clot 6. Leukocytosis and neutrophilia, rule out infxn 7. Hypertension. 8. Cardiomegaly 9. History of chf PLAN: 1. Monitor counts. 2. Back on coumadin 3. Inr goal 2-3 4. The patient is currently without bleeding. 5. Appreciate Pulmonary Critical Care and Nephro recs 6. Potential transfer for angiogram to [facility], awaiting stress test 7. Staff Thank you, Lazarus Jean-Baptiste MD Subjective Constitutional: Denies: chills, diaphoresis, fever, malaise, no symptoms, other , weakness HEENT: Denies: blurred vision, double vision, ear discharge, ear pain, eye pain , mouth pain, mouth swelling, no symptoms, nose congestion, nose pain, other, tearing, throat pain, throat swelling Cardiovascular: Denies: chest pain, edema, irregular heart rate, lightheadedness, no symptoms, other, palpitations, syncope Respiratory: Denies: SOB at rest, SOB with excertion, cough, no symptoms, orthopnea, other, shortness of breath, sputum, stridor, wheezing Gastrointestinal/Abdominal: Denies: abdomen distended, abdominal pain, black stools, blood in stool, constipated, diarrhea, difficulty swallowing, nausea, no symptoms, other, poor appetite, poor fluid intake, rectal bleeding, tarry stools, vomiting Genitourinary: Denies: burning, discharge, flank pain, frequency, hematuria, incontinence, no symptoms, other, pain, urgency 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: Denies: anxiety, depressed, emotional problems, headache, no symptoms, numbness, other, paresthesia, pre-existing deficit, seizure, tingling, tremors, weakness Allergies: Coded Allergies: NO KNOWN ALLERGIES (Unverified Allergy, Unknown, 03/07/15) Subjective without bleeding, at this time, awaiting stress test Objective Last 24 Hour Vital Signs Date Time Temp Pulse Resp B/P Pulse Ox O2 Delivery O2 Flow Rate FiO2 05/25/16 07:59 96.8 77 18 132/65 97 Room Air 05/25/16 06:28 141/72 05/25/16 04:00 98.2 79 20 135/60 98 Room Air 05/25/16 04:00 79 05/25/16 00:38 122/64 05/25/16 00:00 77 05/25/16 00:00 98.1 78 20 133/58 96 Room Air 05/24/16 21:31 80 125/54 05/24/16 20:00 83 05/24/16 17:19 125/54 05/24/16 16:00 80 05/24/16 16:00 97.3 79 20 125/54 98 Room Air 05/24/16 12:15 97.0 75 18 143/70 98 Room Air 05/24/16 12:10 165/89 05/24/16 12:00 75 05/24/16 10:23 165/89 05/24/16 09:00 80 165/89 Intake and Output 05/24/16 05/25/16 19:00 07:00 Intake Total 750.0 ml 885.000 ml Output Total 980 ml 1000 ml Balance -230.0 ml -115.000 ml Intake Oral 640 ml 500 ml IV Total 110.0 ml 385.000 ml Output Urine Total 980 ml 1000 ml Laboratory Tests 05/24/16 13:57: Troponin I < 0.30 05/24/16 15:00: Prothrombin Time 21.1H, Prothromb Time International Ratio 2.0H Height (Feet): 5 Height (Inches): 7.00 Weight (Pounds): 228 General Appearance: no apparent distress EENT: TMs normal Neck: supple Cardiovascular: normal rate Respiratory/Chest: chest wall non-tender Abdomen: non tender Extremities: non-tender Edema: 1+ Leg (L), 1+ Leg (R) Edema: mild edema Neurologic: no motor/sensory deficits Skin: warm/dry Lazarus Jean-Baptiste May 25, 2016 08:11
[2016-05-25] MEDS: Furosemide 40mg tab ORAL SCH ×2 (08:18→16:35)
[2016-05-25] MEDS: Lisinopril 20mg tab ORAL SCH (08:18)
[2016-05-25] MEDS: Carvedilol 25mg Tab ORAL SCH ×2 (08:19→21:16)
[2016-05-25 10:26] LABS: BASOPHILS % (AUTO) 1.3 % (0.0-2.0); EOSINOPHILS % (AUTO) 1.3 % (0.0-3.0); LYMPHOCYTES % (AUTO) 14.8 % (20.0-45.0); MEAN CORPUSCULAR HGB CONC 30.4 G/DL (32.0-36.0); MEAN CORPUSCULAR VOLUME 85 FL (80-99); MEAN PLATELET VOLUME 6.6 FL (6.5-10.1); MONOCYTES % (AUTO) 8.4 % (1.0-10.0); NEUTROPHILS % (AUTO) 74.3 % (45.0-75.0); PLATELET COUNT 493 K/UL (150-450); RED BLOOD COUNT 3.37 M/UL (4.20-5.40); RED CELL DISTRIBUTION WIDTH 16.6 % (11.6-14.8); WHITE BLOOD COUNT 12.4 K/UL (4.8-10.8)
[2016-05-25 10:28] LABS: PROTHROMBIN TIME 20.3 SEC (9.30-11.50)
[2016-05-25 10:44] LABS: ANION GAP 10 (5-15); CALCIUM 8.8 mg/dL (8.6-10.2); CARBON DIOXIDE 34 mEQ/L (20-30); CHLORIDE 95 mEQ/L (98-107); GLOMERULAR FILTRATION RATE > 60 mL/min (>60); HEMOLYSIS 2; SODIUM 139 mEQ/L (135-145)
[2016-05-25 11:32] VITALS: BP 108/56
--- NOTE | 2016-05-25 12:08 | Podiatric Progress Note ---
Assessment/Plan Patient Orin Longoria is a 66 year old female who was admitted on May 17, 2016 at 05: 50 with elevated INR Problems: (1) Toe gangrene (2) Diabetic foot ulcer (3) Bilateral leg ulcer (4) Peripheral vascular disease Assessment/Plan - Continue daily dressing changes - Patient is scheduled to be transferred to [facility] for angiogram. Will continue to follow the patient there - Surgery to be performed once medically cleared by cardiology and optimized by vascular surgeon Subjective Reason for consult Bilateral lower extremity wounds and right hallux gangrene Allergies: Coded Allergies: NO KNOWN ALLERGIES (Unverified Allergy, Unknown, 03/07/15) Subjective Patient states she is feeling much better. No nausea, vomiting, fevers, or chills. No pain reported. Objective Exam Last 24 Hour Vital Signs Date Time Temp Pulse Resp B/P Pulse Ox O2 Delivery O2 Flow Rate FiO2 05/25/16 11:32 97.1 72 18 108/56 100 Room Air 05/25/16 08:19 77 132/65 05/25/16 08:18 132/65 05/25/16 07:59 96.8 77 18 132/65 97 Room Air 05/25/16 06:28 141/72 05/25/16 04:00 98.2 79 20 135/60 98 Room Air 05/25/16 04:00 79 05/25/16 00:38 122/64 05/25/16 00:00 77 05/25/16 00:00 98.1 78 20 133/58 96 Room Air 05/24/16 21:31 80 125/54 05/24/16 20:00 83 05/24/16 17:19 125/54 05/24/16 16:00 80 05/24/16 16:00 97.3 79 20 125/54 98 Room Air 05/24/16 12:15 97.0 75 18 143/70 98 Room Air 05/24/16 12:10 165/89 Laboratory Tests Test 05/24/16 13:57 05/24/16 15:00 05/25/16 09:10 Troponin I < 0.30 ng/mL (<=0.30) Prothrombin Time 21.1 SEC (9.30-11.50) H 20.3 SEC (9.30-11.50) H Prothromb Time International Ratio 2.0 (0.9-1.1) H 2.0 (0.9-1.1) H White Blood Count 12.4 K/UL (4.8-10.8) H Red Blood Count 3.37 M/UL (4.20-5.40) L Hemoglobin 8.8 G/DL (12.0-16.0) L Hematocrit 28.8 % (37.0-47.0) L Mean Corpuscular Volume 85 FL (80-99) Mean Corpuscular Hemoglobin 26.0 PG (27.0-31.0) L Mean Corpuscular Hemoglobin Concent 30.4 G/DL (32.0-36.0) L Red Cell Distribution Width 16.6 % (11.6-14.8) H Platelet Count 493 K/UL (150-450) H Mean Platelet Volume 6.6 FL (6.5-10.1) Neutrophils (%) (Auto) 74.3 % (45.0-75.0) Lymphocytes (%) (Auto) 14.8 % (20.0-45.0) L Monocytes (%) (Auto) 8.4 % (1.0-10.0) Eosinophils (%) (Auto) 1.3 % (0.0-3.0) Basophils (%) (Auto) 1.3 % (0.0-2.0) Sodium Level 139 mEQ/L (135-145) Potassium Level 3.0 mEQ/L (3.4-4.9) L Chloride Level 95 mEQ/L (98-107) L Carbon Dioxide Level 34 mEQ/L (20-30) H Anion Gap 10 (5-15) Blood Urea Nitrogen 16 mg/dL (7-23) Creatinine 1.0 mg/dL (0.5-0.9) H Estimat Glomerular Filtration Rate > 60 mL/min (>60) Glucose Level 170 mg/dL (74-106) H Calcium Level 8.8 mg/dL (8.6-10.2) Microbiology Date/Time Source Procedure Growth Status 05/18/16 19:30 Blood Blood Culture - Final NO GROWTH AFTER 5 DAYS Complete 05/17/16 07:48 Nasal Nares MRSA Culture - Final NO METHICILLIN RESISTANT STAPH AUREUS... Complete 05/19/16 06:00 Foot Right Gram Stain - Final Complete 05/19/16 06:00 Wound Culture - Final Morganella Morg Spp Morganii Klebsiella Oxytoca Diphtheroids Complete Exam Narrative Right hallux gangrene with slight malodor. No purulence noted. Hyperpigmentation of right forefoot. Bilateral leg ulcers are stable with no purulence, malodor, or surrounding erythema or edema. Adán Singh DPM May 25, 2016 12:08
--- NOTE | 2016-05-25 13:04 | General Progress Note ---
Assessment/Plan Problem List: (1) Dizziness ICD Codes: R42 - Dizziness and giddiness SNOMED: 728422919 (2) HTN (hypertension) ICD Codes: I10 - Essential (primary) hypertension SNOMED: 09638599 (3) DM (diabetes mellitus) ICD Codes: E11.9 - Type 2 diabetes mellitus without complications SNOMED: 96490766 (4) Anemia, chronic disease ICD Codes: D63.8 - Anemia in other chronic diseases classified elsewhere; T45.515A - Adverse effect of anticoagulants, initial encounter SNOMED: 568508861, 001516765 (5) Coagulopathy ICD Codes: D68.9 - Coagulation defect, unspecified SNOMED: 65506933 (6) V-tach ICD Codes: I47.2 - Ventricular tachycardia SNOMED: 95836264 (7) Ventricular mural thrombus SNOMED: 30516483 Status: progressing Assessment/Plan foot gangrene s/p bradycardia post endoscopy.dr samaniego was consulted coaguluapthy improving\ dc planning to any facility that is willing to accept her amputation decesion per dr saxena (i had talk w dr saxena and told him that i agree with whatever he recommends in terms of possible amputation so per him Subjective ROS Limited/Unobtainable: Yes Constitutional: Reports: no symptoms Allergies: Coded Allergies: NO KNOWN ALLERGIES (Unverified Allergy, Unknown, 03/07/15) Objective Last 24 Hour Vital Signs Date Time Temp Pulse Resp B/P Pulse Ox O2 Delivery O2 Flow Rate FiO2 05/25/16 12:00 108/56 05/25/16 11:32 97.1 72 18 108/56 100 Room Air 05/25/16 08:19 77 132/65 05/25/16 08:18 132/65 05/25/16 07:59 96.8 77 18 132/65 97 Room Air 05/25/16 06:28 141/72 05/25/16 04:00 98.2 79 20 135/60 98 Room Air 05/25/16 04:00 79 05/25/16 00:38 122/64 05/25/16 00:00 77 05/25/16 00:00 98.1 78 20 133/58 96 Room Air 05/24/16 21:31 80 125/54 05/24/16 20:00 83 05/24/16 17:19 125/54 05/24/16 16:00 80 05/24/16 16:00 97.3 79 20 125/54 98 Room Air Intake and Output 05/24/16 05/25/16 19:00 07:00 Intake Total 750.0 ml 885.000 ml Output Total 980 ml 1000 ml Balance -230.0 ml -115.000 ml Intake Oral 640 ml 500 ml IV Total 110.0 ml 385.000 ml Output Urine Total 980 ml 1000 ml Laboratory Tests 05/24/16 13:57: Troponin I < 0.30 05/24/16 15:00: Prothrombin Time 21.1H, Prothromb Time International Ratio 2.0H 05/25/16 09:10: Prothrombin Time 20.3H, Prothromb Time International Ratio 2.0H, White Blood Count 12.4H, Red Blood Count 3.37L, Hemoglobin 8.8L, Hematocrit 28.8L, Mean Corpuscular Volume 85, Mean Corpuscular Hemoglobin 26.0L, Mean Corpuscular Hemoglobin Concent 30.4L, Red Cell Distribution Width 16.6H, Platelet Count 493H , Mean Platelet Volume 6.6, Neutrophils (%) (Auto) 74.3, Lymphocytes (%) (Auto) 14.8L, Monocytes (%) (Auto) 8.4, Eosinophils (%) (Auto) 1.3, Basophils (%) (Auto ) 1.3, Sodium Level 139, Potassium Level 3.0L, Chloride Level 95L, Carbon Dioxide Level 34H, Anion Gap 10, Blood Urea Nitrogen 16, Creatinine 1.0H, Estimat Glomerular Filtration Rate > 60, Glucose Level 170H, Calcium Level 8.8 Height (Feet): 5 Height (Inches): 7.00 Weight (Pounds): 228 EENT: PERRL/EOMI Cardiovascular: normal rate Brittny Campos MD May 25, 2016 13:04
--- NOTE | 2016-05-25 14:27 | Consultation ---
Consult Note Consult Note asked for management of low K . Assessment/Plan conditions: HypoKalemia- HypoAlbuminemia no UA available EjFx 45% other: 1) Coagulopathy (2) Diabetic foot ulcer (3) Ventricular mural thrombus (4) HTN (hypertension) (5) DM (diabetes mellitus) (6) Anemia, chronic disease Plan: Per consultants- K po Ua adjust BP page- ROGER VILLALTA May 25, 2016 14:27
--- NOTE | 2016-05-25 15:21 | Pulmonology Progress Note ---
Assessment/Plan Problems: (1) Coagulopathy (2) Diabetic foot ulcer (3) Ventricular mural thrombus (4) HTN (hypertension) (5) DM (diabetes mellitus) (6) Anemia, chronic disease Assessment/Plan monitor heart rate venous dupplex negative cardio evaluation appreciated f/u h/h, pt/ptt continue antibiotics refusing stress test bradycardia resolved wound care med/surg Subjective ROS Limited/Unobtainable: No Interval Events: confused slightly, no new complains Allergies: Coded Allergies: NO KNOWN ALLERGIES (Unverified Allergy, Unknown, 03/07/15) Objective Last 24 Hour Vital Signs Date Time Temp Pulse Resp B/P Pulse Ox O2 Delivery O2 Flow Rate FiO2 05/25/16 12:00 75 05/25/16 12:00 108/56 05/25/16 11:32 97.1 72 18 108/56 100 Room Air 05/25/16 08:19 77 132/65 05/25/16 08:18 132/65 05/25/16 08:00 78 05/25/16 07:59 96.8 77 18 132/65 97 Room Air 05/25/16 06:28 141/72 05/25/16 04:00 98.2 79 20 135/60 98 Room Air 05/25/16 04:00 79 05/25/16 00:38 122/64 05/25/16 00:00 77 05/25/16 00:00 98.1 78 20 133/58 96 Room Air 05/24/16 21:31 80 125/54 05/24/16 20:00 83 05/24/16 17:19 125/54 05/24/16 16:00 80 05/24/16 16:00 97.3 79 20 125/54 98 Room Air Intake and Output 05/24/16 05/25/16 19:00 07:00 Intake Total 750.0 ml 885.000 ml Output Total 980 ml 1000 ml Balance -230.0 ml -115.000 ml Intake Oral 640 ml 500 ml IV Total 110.0 ml 385.000 ml Output Urine Total 980 ml 1000 ml Objective General Appearance: WD/WN HEENT: normocephalic, atraumatic Respiratory/Chest: chest wall non-tender, crackles/rales Cardiovascular: normal peripheral pulses, normal rate Abdomen: normal bowel sounds, soft, non tender Genitourinary: normal external genitalia Extremities: no cyanosis, no clubbing, ulers and gangrene Skin: no rash, clean dressing on legs 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 Laboratory Tests 05/25/16 09:10: White Blood Count 12.4H, Red Blood Count 3.37L, Hemoglobin 8.8L, Hematocrit 28.8L, Mean Corpuscular Volume 85, Mean Corpuscular Hemoglobin 26.0L, Mean Corpuscular Hemoglobin Concent 30.4L, Red Cell Distribution Width 16.6H, Platelet Count 493H, Mean Platelet Volume 6.6, Neutrophils (%) (Auto) 74.3, Lymphocytes (%) (Auto) 14.8L, Monocytes (%) (Auto) 8.4, Eosinophils (%) (Auto) 1.3, Basophils (%) (Auto) 1.3, Prothrombin Time 20.3H, Prothromb Time International Ratio 2.0H, Sodium Level 139, Potassium Level 3.0L, Chloride Level 95L, Carbon Dioxide Level 34H, Anion Gap 10, Blood Urea Nitrogen 16, Creatinine 1.0H, Estimat Glomerular Filtration Rate > 60, Glucose Level 170H, Calcium Level 8.8 Current Medications Medications (Trade) Dose Ordered Sig/Anh Route PRN Reason Start Time Stop Time Status Last Admin Dose Admin Acetaminophen (Tylenol) 650 mg Q4H PRN ORAL T>100.5 05/20/16 10:00 06/19/16 09:59 05/20/16 21:34 Al Hydroxide/Mg Hydroxide (Mylanta II) 30 ml Q6H PRN ORAL dyspepsia 05/20/16 10:00 06/19/16 09:59 Atorvastatin Calcium (Lipitor) 40 mg BEDTIME ORAL 05/20/16 21:00 06/19/16 20:59 05/24/16 21:32 Carvedilol 25 mg 25 mg EVERY 12 HOURS ORAL 05/21/16 21:00 06/20/16 20:59 05/25/16 08:19 Collagenase (Santyl) 1 applic DAILY TOPIC 05/20/16 10:00 06/19/16 09:59 05/25/16 08:22 Cyanocobalamin (Vitamin B12) 1,000 mcg QPM SUBQ 05/25/16 16:30 05/27/16 16:31 Dextrose (Dextrose 50%) STAT PRN IV Hypoglycemia 05/21/16 07:00 06/20/16 06:59 Folic Acid (Folate) 3 mg DAILY ORAL 05/25/16 14:45 06/24/16 14:44 UNV Furosemide (Lasix) 40 mg TWICE A DAY ORAL 05/20/16 10:00 06/19/16 09:59 05/25/16 08:18 Hydralazine HCl (Apresoline) 25 mg Q8HR ORAL 05/25/16 22:00 06/24/16 21:59 Insulin Aspart (NovoLOG) BEFORE MEALS AND HS SUBQ 05/20/16 11:30 06/19/16 11:29 05/25/16 12:05 Lisinopril (Prinivil) 20 mg DAILY ORAL 05/26/16 09:00 06/25/16 08:59 Lorazepam (Ativan 2mg/ml 1ml) 0.5 mg Q4H PRN IV For Anxiety 05/20/16 10:00 05/27/16 09:59 05/21/16 02:07 Morphine Sulfate (Morphine Sulfate) 1 mg Q4H PRN IVP PAIN 4-10 05/20/16 10:00 05/27/16 09:59 05/24/16 22:51 Ondansetron HCl (Zofran) 4 mg Q6H PRN IVP Nausea & Vomiting 05/20/16 10:00 06/19/16 09:59 Piperacillin Sod/ Tazobactam Sod/ Dextrose (Zosyn/D5W) 110 ml @ 27.5 mls/hr EVERY 8 HOURS IVPB 05/21/16 14:00 05/29/16 13:59 05/25/16 13:35 Polyethylene Glycol (Miralax) 17 gm HSPRN PRN ORAL Constipation 05/20/16 21:00 06/19/16 20:59 Vancomycin HCl (Vanco rx to dose) 1 ea DAILY PRN MISC . 05/21/16 09:00 06/20/16 08:59 Vancomycin HCl/ Dextrose (Vancomycin/D5W) 275 ml @ 183.708 mls/hr Q12HR@0400,1600 IVPB 05/20/16 16:00 05/29/16 15:59 05/25/16 05:12 Warfarin Sodium (Coumadin per pharmacy) 1 ea DAILY PRN MISC Per rx protocol 05/20/16 10:15 06/19/16 10:14 Warfarin Sodium (Coumadin) 4 mg COUMADIN PO 05/24/16 17:00 05/29/16 16:59 05/24/16 17:19 Zolpidem Tartrate (Ambien) 5 mg HSPRN PRN ORAL Insomnia 05/20/16 21:00 06/19/16 20:59 05/21/16 21:08 AMARIS POWERS May 25, 2016 15:21
--- NOTE | 2016-05-25 15:28 | Wound Care Consultation ---
Wound Assessment Wound Assessment #1: Wound Number: #1 Wound Present on Admission: Yes New Wound: No Status Change of Wound: No Wound Location Body Site Modif: right, lower, posterior Wound Location Body Site: toe - 1st Wound Type: lesion-etiology unknown Luna Test: Does not Luna Vascular Issues: gangrene Wound Thickness: Full Thickness Wound Length: 1.5 Wound Width: 2.0 Wound Depth: 1.0 Percent of Wound Black/Brown: 100 Wound Drainage Description: Serosanguineous Wound Drainage Amount: Scant Wound Drainage Odor: Foul Odor Tissue Surrounding Wound: Indurated - hardened Wound General Appearance: Blackened, Necrotic Wound Assessment #2: Wound Number: #2 Wound Present on Admission: Yes New Wound: No Status Change of Wound: No Wound Location Body Site Modif: right, posterior Wound Location Body Site: metatarsal head - 1st and 2nd Wound Type: lesion-etiology unknown Luna Test: Does not Luna Wound Thickness: Full Thickness Wound Length: 11.5 Wound Width: 6.0 Wound Depth: utd Percent of Wound Black/Brown: 100 Wound Drainage Description: Serosanguineous Wound Drainage Amount: Scant Wound Drainage Odor: Foul Odor Tissue Surrounding Wound: Indurated - hardened Wound General Appearance: Blackened, Necrotic Wound Assessment #3: Wound Number: #3 Wound Present on Admission: Yes New Wound: No Status Change of Wound: No Wound Location Body Site Modif: left, lower, anterior Wound Location Body Site: leg Wound Type: lesion-etiology unknown Luna Test: Does not Luna Wound Thickness: Full Thickness Wound Length: 11.0 Wound Width: 6.0 Wound Depth: utd Percent of Wound [place]/Red: 20 Percent of Wound Bed Yellow/Wh: 80 Wound Drainage Description: Serosanguineous Wound Drainage Amount: Moderate Wound Drainage Odor: Mild Odor Tissue Surrounding Wound: Macerated Wound General Appearance: Reddened, Draining Wound Assessment #4: Wound Number: #4 Wound Present on Admission: Yes New Wound: No Status Change of Wound: No Wound Location Body Site Modif: left, lower, posterior Wound Location Body Site: leg Wound Type: lesion-etiology unknown Luna Test: Does not Luna Wound Thickness: Full Thickness Wound Length: 13.0 Wound Width: 5.0 Wound Depth: utd Percent of Wound [place]/Red: 10 Percent of Wound Bed Yellow/Wh: 90 Wound Drainage Description: Serosanguineous Wound Drainage Amount: Moderate Wound Drainage Odor: None/Absent Tissue Surrounding Wound: Macerated Wound General Appearance: Reddened, Draining Wound Assessment #5: Wound Number: #5 Wound Present on Admission: Yes New Wound: No Status Change of Wound: No Wound Location Body Site Modif: left Wound Location Body Site: heel Wound Type: pressure ulcer Luna Test: Does not Luna Pressure Ulcer Stage: deep tissue injury Wound Thickness: Full Thickness Wound Length: 4.5 Wound Width: 4.0 Wound Depth: utd Percent of Wound [place]/Red: 50 Percent of Wound Black/Brown: 50 Wound Drainage Amount: None Wound Drainage Odor: None/Absent Tissue Surrounding Wound: Intact Wound General Appearance: Reddened Wound Assessment #6: Wound Number: #6 Wound Present on Admission: Yes New Wound: No Status Change of Wound: No Wound Location Body Site Modif: right, lower, posterior Wound Location Body Site: leg Wound Type: lesion-etiology unknown Luna Test: Does not Luna Wound Thickness: Full Thickness Wound Length: 3.0 Wound Width: 4.0 Wound Depth: utd Percent of Wound [place]/Red: 10 Percent of Wound Bed Yellow/Wh: 90 Wound Drainage Description: Serosanguineous Wound Drainage Amount: Moderate Wound Drainage Odor: None/Absent Tissue Surrounding Wound: Macerated Wound General Appearance: Draining Wound Comment #1 Right posterior lower leg open wound #2 Left anterior lower leg open wound #3 Left posterior lower leg open wound #4 Left heel DTI pressure ulcer #5 Right posterior lower 1st toe open wound surrounding tissue black in color with foul odor #6 Right 1st and 2nd metatarsal head black in color upon reassessment noted left heel site remains intact , no further change noted to admitted sites, noted decrease in foul odor. Recommendation -Offload both heels -Turn and reposition -Heel protector on both heels -Keep clean and dry -Optimize nutrition -Local wound care as ordered by MD -Low air loss overlay mattress -Assess and f/u with Care Navigator for any changes, follow uo with advanced practice nurse recommendations. BAILEY MEJÍA May 25, 2016 15:28
--- NOTE | 2016-05-25 15:41 | Infectious Diseases Prog Note ---
Assessment/Plan Problems: (1) Toe gangrene Assessment & Plan: with wound culture growing multiple organisms all sensitive to Zosyn, but MRI is negative for osteomyelitis, and blood culture ruled out bacteremia . continue vancomycin, and zosyn to cover for ESBL producing E coli , recommend amputation of the big toe to eliminate the source of sepsis , she needs vascular clearance before amputation. recommend 4-6 weeks of vancomycin and zosyn therapy after amputation is done. (2) Open wound of both legs with complication Assessment & Plan: continue local wound care as per wound care service, and off loading , continue wide spectrum antibiotics (3) Sepsis Assessment & Plan: due to the above, continue vancomycin, and zosyn until amputation is done , blood culture is negative (4) Coagulopathy Assessment & Plan: due to comuadin, improving, monitor INR (5) DM (diabetes mellitus) Assessment & Plan: recommend tight glycemic control to keep blood glucose between 80-120 Subjective Constitutional: Denies: anorexia, chills, drenching sweats, fatigue, fever, no symptoms, other HEENT: Denies: congestion, coryza, dysphagia, hearing change, no symptoms, other, visual change Respiratory: Denies: dry cough, no symptoms, other, productive cough, shortness of breath Cardiovascular: Denies: chest pain, dyspnea on exertion, no symptoms, other, palpitations Gastrointestinal/Abdominal: Denies: bloating, blood in stool, constipation, diarrhea, nausea, no symptoms, other, vomiting Genitourinary: Denies: dysuria, frequency, hematuria, last menstrual period, no symptoms, nocturia, other, vaginal bleed/discharge Neurologic: Denies: confusion, headache, no symptoms, numbness, other, weakness Psychiatric: Denies: anxiety, depression, no symptoms, other Skin: Reports: other - toe gangren, ulcer Allergies: Coded Allergies: NO KNOWN ALLERGIES (Unverified Allergy, Unknown, 03/07/15) Objective Vital Signs Last 24 Hour Vital Signs Date Time Temp Pulse Resp B/P Pulse Ox O2 Delivery O2 Flow Rate FiO2 05/25/16 12:00 75 05/25/16 12:00 108/56 05/25/16 11:32 97.1 72 18 108/56 100 Room Air 05/25/16 08:19 77 132/65 05/25/16 08:18 132/65 05/25/16 08:00 78 05/25/16 07:59 96.8 77 18 132/65 97 Room Air 05/25/16 06:28 141/72 05/25/16 04:00 98.2 79 20 135/60 98 Room Air 05/25/16 04:00 79 05/25/16 00:38 122/64 05/25/16 00:00 77 05/25/16 00:00 98.1 78 20 133/58 96 Room Air 05/24/16 21:31 80 125/54 05/24/16 20:00 83 05/24/16 17:19 125/54 05/24/16 16:00 80 05/24/16 16:00 97.3 79 20 125/54 98 Room Air Height (Feet): 5 Height (Inches): 7.00 Weight (Pounds): 228 General Appearance: WD/WN, no acute distress HEENT: normocephalic, atraumatic, anicteric Respiratory/Chest: chest wall non-tender, lungs clear, normal breath sounds, no respiratory distress, no accessory muscle use Cardiovascular: normal peripheral pulses, normal rate, regular rhythm, no JVD Abdomen: normal bowel sounds, soft, non tender, no organomegaly, non distended , no mass Extremities: no cyanosis, no clubbing Skin: no rash, no lesions, no ulcers Laboratory Tests Test 05/25/16 09:10 White Blood Count 12.4 K/UL (4.8-10.8) H Red Blood Count 3.37 M/UL (4.20-5.40) L Hemoglobin 8.8 G/DL (12.0-16.0) L Hematocrit 28.8 % (37.0-47.0) L Mean Corpuscular Volume 85 FL (80-99) Mean Corpuscular Hemoglobin 26.0 PG (27.0-31.0) L Mean Corpuscular Hemoglobin Concent 30.4 G/DL (32.0-36.0) L Red Cell Distribution Width 16.6 % (11.6-14.8) H Platelet Count 493 K/UL (150-450) H Mean Platelet Volume 6.6 FL (6.5-10.1) Neutrophils (%) (Auto) 74.3 % (45.0-75.0) Lymphocytes (%) (Auto) 14.8 % (20.0-45.0) L Monocytes (%) (Auto) 8.4 % (1.0-10.0) Eosinophils (%) (Auto) 1.3 % (0.0-3.0) Basophils (%) (Auto) 1.3 % (0.0-2.0) Prothrombin Time 20.3 SEC (9.30-11.50) H Prothromb Time International Ratio 2.0 (0.9-1.1) H Sodium Level 139 mEQ/L (135-145) Potassium Level 3.0 mEQ/L (3.4-4.9) L Chloride Level 95 mEQ/L (98-107) L Carbon Dioxide Level 34 mEQ/L (20-30) H Anion Gap 10 (5-15) Blood Urea Nitrogen 16 mg/dL (7-23) Creatinine 1.0 mg/dL (0.5-0.9) H Estimat Glomerular Filtration Rate > 60 mL/min (>60) Glucose Level 170 mg/dL (74-106) H Calcium Level 8.8 mg/dL (8.6-10.2) Current Medications Medications (Trade) Dose Ordered Sig/Anh Route PRN Reason Start Time Stop Time Status Last Admin Dose Admin Acetaminophen (Tylenol) 650 mg Q4H PRN ORAL T>100.5 05/20/16 10:00 06/19/16 09:59 05/20/16 21:34 Al Hydroxide/Mg Hydroxide (Mylanta II) 30 ml Q6H PRN ORAL dyspepsia 05/20/16 10:00 06/19/16 09:59 Atorvastatin Calcium (Lipitor) 40 mg BEDTIME ORAL 05/20/16 21:00 06/19/16 20:59 05/24/16 21:32 Carvedilol 25 mg 25 mg EVERY 12 HOURS ORAL 05/21/16 21:00 06/20/16 20:59 05/25/16 08:19 Collagenase (Santyl) 1 applic DAILY TOPIC 05/20/16 10:00 06/19/16 09:59 05/25/16 08:22 Cyanocobalamin (Vitamin B12) 1,000 mcg QPM SUBQ 05/25/16 16:30 05/27/16 16:31 Dextrose (Dextrose 50%) STAT PRN IV Hypoglycemia 05/21/16 07:00 06/20/16 06:59 Folic Acid (Folate) 3 mg DAILY ORAL 05/25/16 16:00 06/24/16 15:59 Furosemide (Lasix) 40 mg TWICE A DAY ORAL 05/20/16 10:00 06/19/16 09:59 05/25/16 08:18 Hydralazine HCl (Apresoline) 25 mg Q8HR ORAL 05/25/16 22:00 06/24/16 21:59 Insulin Aspart (NovoLOG) BEFORE MEALS AND HS SUBQ 05/20/16 11:30 06/19/16 11:29 05/25/16 12:05 Lisinopril (Prinivil) 20 mg DAILY ORAL 05/26/16 09:00 06/25/16 08:59 Lorazepam (Ativan 2mg/ml 1ml) 0.5 mg Q4H PRN IV For Anxiety 05/20/16 10:00 05/27/16 09:59 05/21/16 02:07 Morphine Sulfate (Morphine Sulfate) 1 mg Q4H PRN IVP PAIN 4-10 05/20/16 10:00 05/27/16 09:59 05/24/16 22:51 Ondansetron HCl (Zofran) 4 mg Q6H PRN IVP Nausea & Vomiting 05/20/16 10:00 06/19/16 09:59 Piperacillin Sod/ Tazobactam Sod/ Dextrose (Zosyn/D5W) 110 ml @ 27.5 mls/hr EVERY 8 HOURS IVPB 05/21/16 14:00 05/29/16 13:59 05/25/16 13:35 Polyethylene Glycol (Miralax) 17 gm HSPRN PRN ORAL Constipation 05/20/16 21:00 06/19/16 20:59 Vancomycin HCl (Vanco rx to dose) 1 ea DAILY PRN MISC . 05/21/16 09:00 06/20/16 08:59 Vancomycin HCl/ Dextrose (Vancomycin/D5W) 275 ml @ 183.708 mls/hr Q12HR@0400,1600 IVPB 05/20/16 16:00 05/29/16 15:59 05/25/16 05:12 Warfarin Sodium (Coumadin per pharmacy) 1 ea DAILY PRN MISC Per rx protocol 05/20/16 10:15 06/19/16 10:14 Warfarin Sodium (Coumadin) 4 mg COUMADIN PO 05/24/16 17:00 05/29/16 16:59 05/24/16 17:19 Zolpidem Tartrate (Ambien) 5 mg HSPRN PRN ORAL Insomnia 05/20/16 21:00 06/19/16 20:59 05/21/16 21:08 Anju Judd M.D. May 25, 2016 15:41
[2016-05-25 16:00] VITALS: BP 126/70
[2016-05-25] MEDS ORDERED: Vitamin B12 1000mcg/ml Inj SUBQ SCH (16:30)
[2016-05-25] MEDS: Warfarin Sodium 4mg PO SCH (16:37)
[2016-05-25 18:38] LABS: APPEARANCE,URINE CLEAR; KETONES,URINE NEGATIVE (NEGATIVE); LEUKOCYTE ESTERASE ,URINE 3+ (NEGATIVE); NITRITE,URINE NEGATIVE (NEGATIVE); PH,URINE 7 (4.5-8.0); PROTEIN,URINE 2+ (NEGATIVE); UROBILINOGEN,URINE NORMAL MG/DL (0.0-1.0)
[2016-05-25 19:01] LABS: BACTERIA,URINE FEW /HPF; SQUAMOUS EPITHELIAL CELL,UR FEW /LPF (NONE/OCC)
[2016-05-25] MEDS ORDERED: Mylanta II UD 30ml ORAL PRN (19:30)
[2016-05-25 20:00] VITALS: BP 152/85
[2016-05-25] MEDS ORDERED: Morphine Sulfate 2mg/ml Inj IVP PRN (20:00)
[2016-05-25] MEDS ORDERED: LORazepam Inj 2mg/ml 1ml IV PRN (20:00)
[2016-05-25] MEDS ORDERED: Miralax 17gm pkt ORAL PRN (21:00)
[2016-05-25] MEDS ORDERED: Zolpidem 5mg tab ORAL PRN (21:00)
[2016-05-25] MEDS: HydrALAZINE 25mg tab ORAL SCH (21:16)
[2016-05-25] MEDS ORDERED: HydrALAZINE 25mg tab ORAL SCH (22:00)
--- NOTE | 2016-05-25 22:35 | General Progress Note ---
Assessment/Plan Assessment/Plan Assessment - gastritis, colon polyp - anemia - stable - functional decline - HTN - DM - toe gangrene Recommendations - push po - abx - wound care - follow labs Subjective Allergies: Coded Allergies: NO KNOWN ALLERGIES (Unverified Allergy, Unknown, 03/07/15) Subjective more awake no abd complaints better po intake 50-70% Objective Last 24 Hour Vital Signs Date Time Temp Pulse Resp B/P Pulse Ox O2 Delivery O2 Flow Rate FiO2 05/25/16 21:16 152/85 05/25/16 21:16 84 152/85 05/25/16 20:00 98.4 84 18 152/85 99 Room Air 05/25/16 16:00 97.8 71 22 126/70 95 Room Air 05/25/16 12:00 75 05/25/16 12:00 108/56 05/25/16 11:32 97.1 72 18 108/56 100 Room Air 05/25/16 08:19 77 132/65 05/25/16 08:18 132/65 05/25/16 08:00 78 05/25/16 07:59 96.8 77 18 132/65 97 Room Air 05/25/16 06:28 141/72 05/25/16 04:00 98.2 79 20 135/60 98 Room Air 05/25/16 04:00 79 05/25/16 00:38 122/64 05/25/16 00:00 77 05/25/16 00:00 98.1 78 20 133/58 96 Room Air Intake and Output 05/24/16 05/25/16 19:00 07:00 Intake Total 750.0 ml 885.000 ml Output Total 980 ml 1000 ml Balance -230.0 ml -115.000 ml Intake Oral 640 ml 500 ml IV Total 110.0 ml 385.000 ml Output Urine Total 980 ml 1000 ml Laboratory Tests 05/25/16 09:10: White Blood Count 12.4H, Red Blood Count 3.37L, Hemoglobin 8.8L, Hematocrit 28.8L, Mean Corpuscular Volume 85, Mean Corpuscular Hemoglobin 26.0L, Mean Corpuscular Hemoglobin Concent 30.4L, Red Cell Distribution Width 16.6H, Platelet Count 493H, Mean Platelet Volume 6.6, Neutrophils (%) (Auto) 74.3, Lymphocytes (%) (Auto) 14.8L, Monocytes (%) (Auto) 8.4, Eosinophils (%) (Auto) 1.3, Basophils (%) (Auto) 1.3, Prothrombin Time 20.3H, Prothromb Time International Ratio 2.0H, Sodium Level 139, Potassium Level 3.0L, Chloride Level 95L, Carbon Dioxide Level 34H, Anion Gap 10, Blood Urea Nitrogen 16, Creatinine 1.0H, Estimat Glomerular Filtration Rate > 60, Glucose Level 170H, Calcium Level 8.8 05/25/16 15:00: Urine Color Pale yellow, Urine Appearance Clear, Urine pH 7, Urine Specific [place] 1.005, Urine Protein 2+H, Urine Glucose (UA) Negative, Urine Ketones Negative, Urine Occult Blood 4+H, Urine Nitrite Negative, Urine Bilirubin Negative, Urine Urobilinogen Normal, Urine Leukocyte Esterase 3+H, Urine RBC 10- 15H, Urine WBC 5-10H, Urine Squamous Epithelial Cells Few, Urine Bacteria Few Height (Feet): 5 Height (Inches): 7.00 Weight (Pounds): 228 Objective WDWN NCAT supple CTA RRR Soft ND NT (+) LE wounds SHRUTI DE ANDA May 25, 2016 22:35
[2016-05-26] VITALS: BP 134/74
[2016-05-26 03:27] VITALS: BP 132/73
[2016-05-26] MEDS: Vancomycin 750 MG in D5W 275 ML IVPB SCH ×2 (03:46→17:26)
--- NOTE | 2016-05-26 05:58 | General Progress Note ---
Assessment/Plan Assessment/Plan Assessment - gastritis, colon polyp - anemia - stable - functional decline - HTN - DM - toe gangrene Recommendations - push po - abx - wound care - follow labs Subjective Allergies: Coded Allergies: NO KNOWN ALLERGIES (Unverified Allergy, Unknown, 03/07/15) Subjective more awake no abd complaints better po intake 50-70% Objective Last 24 Hour Vital Signs Date Time Temp Pulse Resp B/P Pulse Ox O2 Delivery O2 Flow Rate FiO2 05/26/16 03:27 97.6 81 18 132/73 94 Room Air 05/26/16 01:57 98.4 05/26/16 00:00 97.8 76 20 134/74 97 Room Air 05/25/16 21:16 152/85 05/25/16 21:16 84 152/85 05/25/16 20:00 98.4 84 18 152/85 99 Room Air 05/25/16 16:00 97.8 71 22 126/70 95 Room Air 05/25/16 12:00 75 05/25/16 12:00 108/56 05/25/16 11:32 97.1 72 18 108/56 100 Room Air 05/25/16 08:19 77 132/65 05/25/16 08:18 132/65 05/25/16 08:00 78 05/25/16 07:59 96.8 77 18 132/65 97 Room Air 05/25/16 06:28 141/72 Intake and Output 05/25/16 05/26/16 19:00 07:00 Intake Total 480 ml 110.0 ml Output Total 200 ml 700 ml Balance 280 ml -590.0 ml Intake Oral 480 ml IV Total 110.0 ml Output Urine Total 200 ml 700 ml Laboratory Tests 05/25/16 09:10: White Blood Count 12.4H, Red Blood Count 3.37L, Hemoglobin 8.8L, Hematocrit 28.8L, Mean Corpuscular Volume 85, Mean Corpuscular Hemoglobin 26.0L, Mean Corpuscular Hemoglobin Concent 30.4L, Red Cell Distribution Width 16.6H, Platelet Count 493H, Mean Platelet Volume 6.6, Neutrophils (%) (Auto) 74.3, Lymphocytes (%) (Auto) 14.8L, Monocytes (%) (Auto) 8.4, Eosinophils (%) (Auto) 1.3, Basophils (%) (Auto) 1.3, Prothrombin Time 20.3H, Prothromb Time International Ratio 2.0H, Sodium Level 139, Potassium Level 3.0L, Chloride Level 95L, Carbon Dioxide Level 34H, Anion Gap 10, Blood Urea Nitrogen 16, Creatinine 1.0H, Estimat Glomerular Filtration Rate > 60, Glucose Level 170H, Calcium Level 8.8 05/25/16 15:00: Urine Color Pale yellow, Urine Appearance Clear, Urine pH 7, Urine Specific [place] 1.005, Urine Protein 2+H, Urine Glucose (UA) Negative, Urine Ketones Negative, Urine Occult Blood 4+H, Urine Nitrite Negative, Urine Bilirubin Negative, Urine Urobilinogen Normal, Urine Leukocyte Esterase 3+H, Urine RBC 10- 15H, Urine WBC 5-10H, Urine Squamous Epithelial Cells Few, Urine Bacteria Few Height (Feet): 5 Height (Inches): 7.00 Weight (Pounds): 228 Objective WDWN NCAT supple CTA RRR Soft ND NT (+) LE wounds SHRUTI DE ANDA May 26, 2016 05:58
[2016-05-26] MEDS: HydrALAZINE 25mg tab ORAL SCH ×2 (06:15→14:34)
[2016-05-26] MEDS: Piperacillin/Tazobactam 3.375 GM in D5W 110 ML IVPB SCH ×2 (06:17→14:34)
[2016-05-26] MEDS: NovoLOG Insulin Flexpen SUBQ SCH ×3 (06:24→17:28)
[2016-05-26 07:22] LABS: BASOPHILS % (AUTO) 1.8 % (0.0-2.0); EOSINOPHILS % (AUTO) 1.8 % (0.0-3.0); MEAN CORPUSCULAR HEMOGLOBIN 26.2 PG (27.0-31.0); MEAN CORPUSCULAR HGB CONC 30.6 G/DL (32.0-36.0); MEAN CORPUSCULAR VOLUME 86 FL (80-99); MEAN PLATELET VOLUME 6.3 FL (6.5-10.1); MONOCYTES % (AUTO) 7.1 % (1.0-10.0); NEUTROPHILS % (AUTO) 71.2 % (45.0-75.0); PLATELET COUNT 481 K/UL (150-450); RED BLOOD COUNT 3.42 M/UL (4.20-5.40); RED CELL DISTRIBUTION WIDTH 16.4 % (11.6-14.8); WHITE BLOOD COUNT 10.9 K/UL (4.8-10.8)
--- NOTE | 2016-05-26 07:30 | General Progress Note ---
Assessment/Plan Assessment/Plan ASSESSMENT: 1. Supratherapeutic INR likely secondary to Coumadin overdose. Improved, now is back on coumadin 2. 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 back on coumadin 3. Anemia of chronic disease 4. R/o GI bleed with, GI service on board 5. Ventricular clot 6. Leukocytosis and neutrophilia, rule out infxn 7. Hypertension. 8. Cardiomegaly 9. History of chf PLAN: 1. Monitor counts. 2. Back on coumadin 3. Inr goal 2-3 4. The patient is currently without bleeding. 5. Appreciate Pulmonary Critical Care and Nephro recs 6. Potential transfer for angiogram to [facility], awaiting stress test 7. Staff Thank you, Lazarus Jean-Baptiste MD Subjective Constitutional: Reports: no symptoms HEENT: Reports: no symptoms Cardiovascular: Reports: no symptoms Respiratory: Reports: no symptoms Gastrointestinal/Abdominal: Reports: no symptoms Genitourinary: Reports: no symptoms 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: Reports: no symptoms Endocrine: Reports: no symptoms Hematologic/Lymphatic: Reports: anemia Allergies: Coded Allergies: NO KNOWN ALLERGIES (Unverified Allergy, Unknown, 03/07/15) Subjective without bleeding, feelings tired this am, getting PT/OT, wound site dressing changes Objective Last 24 Hour Vital Signs Date Time Temp Pulse Resp B/P Pulse Ox O2 Delivery O2 Flow Rate FiO2 05/26/16 06:15 132/73 05/26/16 03:27 97.6 81 18 132/73 94 Room Air 05/26/16 01:57 98.4 05/26/16 00:00 97.8 76 20 134/74 97 Room Air 05/25/16 21:16 152/85 05/25/16 21:16 84 152/85 05/25/16 20:00 98.4 84 18 152/85 99 Room Air 05/25/16 16:00 97.8 71 22 126/70 95 Room Air 05/25/16 12:00 75 05/25/16 12:00 108/56 05/25/16 11:32 97.1 72 18 108/56 100 Room Air 05/25/16 08:19 77 132/65 05/25/16 08:18 132/65 05/25/16 08:00 78 05/25/16 07:59 96.8 77 18 132/65 97 Room Air Intake and Output 05/25/16 05/26/16 19:00 07:00 Intake Total 480 ml 430.0 ml Output Total 200 ml 1300 ml Balance 280 ml -870.0 ml Intake Oral 480 ml 320 ml IV Total 110.0 ml Output Urine Total 200 ml 1300 ml # Bowel Movements 1 Laboratory Tests 05/25/16 09:10: White Blood Count 12.4H, Red Blood Count 3.37L, Hemoglobin 8.8L, Hematocrit 28.8L, Mean Corpuscular Volume 85, Mean Corpuscular Hemoglobin 26.0L, Mean Corpuscular Hemoglobin Concent 30.4L, Red Cell Distribution Width 16.6H, Platelet Count 493H, Mean Platelet Volume 6.6, Neutrophils (%) (Auto) 74.3, Lymphocytes (%) (Auto) 14.8L, Monocytes (%) (Auto) 8.4, Eosinophils (%) (Auto) 1.3, Basophils (%) (Auto) 1.3, Prothrombin Time 20.3H, Prothromb Time International Ratio 2.0H, Sodium Level 139, Potassium Level 3.0L, Chloride Level 95L, Carbon Dioxide Level 34H, Anion Gap 10, Blood Urea Nitrogen 16, Creatinine 1.0H, Estimat Glomerular Filtration Rate > 60, Glucose Level 170H, Calcium Level 8.8 05/25/16 15:00: Urine Color Pale yellow, Urine Appearance Clear, Urine pH 7, Urine Specific [place] 1.005, Urine Protein 2+H, Urine Glucose (UA) Negative, Urine Ketones Negative, Urine Occult Blood 4+H, Urine Nitrite Negative, Urine Bilirubin Negative, Urine Urobilinogen Normal, Urine Leukocyte Esterase 3+H, Urine RBC 10- 15H, Urine WBC 5-10H, Urine Squamous Epithelial Cells Few, Urine Bacteria Few 05/26/16 05:15: White Blood Count 10.9H, Red Blood Count 3.42L, Hemoglobin 8.9L, Hematocrit 29.2L, Mean Corpuscular Volume 86, Mean Corpuscular Hemoglobin 26.2L, Mean Corpuscular Hemoglobin Concent 30.6L, Red Cell Distribution Width 16.4H, Platelet Count 481H, Mean Platelet Volume 6.3L, Neutrophils (%) (Auto) 71.2, Lymphocytes (%) (Auto) 18.0L, Monocytes (%) (Auto) 7.1, Eosinophils (%) (Auto) 1.8, Basophils (%) (Auto) 1.8, Prothrombin Time [Pending], Prothromb Time International Ratio [Pending], Sodium Level [Pending], Potassium Level [Pending] , Chloride Level [Pending], Carbon Dioxide Level [Pending], Blood Urea Nitrogen [Pending], Creatinine [Pending], Estimat Glomerular Filtration Rate [Pending], Glucose Level [Pending], Calcium Level [Pending], Uric Acid [Pending], Phosphorus Level [Pending], Magnesium Level [Pending], Iron Level [Pending], Unsaturated Iron Binding [Pending], Ferritin [Pending], Total Bilirubin [Pending ], Gamma Glutamyl Transpeptidase [Pending], Aspartate Amino Transf (AST/SGOT) [ Pending], Alanine Aminotransferase (ALT/SGPT) [Pending], Alkaline Phosphatase [ Pending], C-Reactive Protein, Quantitative [Pending], Pro-B-Type Natriuretic Peptide [Pending], Total Protein [Pending], Albumin [Pending], Globulin [Pending ], Triglycerides Level [Pending], Cholesterol Level [Pending], LDL Cholesterol [ Pending], HDL Cholesterol [Pending], Cholesterol/HDL Ratio [Pending], Vitamin B12 Level [Pending] Height (Feet): 5 Height (Inches): 7.00 Weight (Pounds): 232 General Appearance: no apparent distress EENT: TMs normal Neck: supple Cardiovascular: regular rhythm Respiratory/Chest: no respiratory distress Abdomen: non tender Extremities: non-tender Edema: 1+ Leg (L), 1+ Leg (R) Edema: mild edema Neurologic: alert Skin: warm/dry Lazarus Jean-Baptiste May 26, 2016 07:30
[2016-05-26 07:46] LABS: HEMOLYSIS 0; IRON 32 ug/dL (37-145); TOTAL IRON BINDING CAPACITY 223 ug/dL (250-400)
[2016-05-26 07:56] LABS: INR 1.9 (0.9-1.1); PROTHROMBIN TIME 20.2 SEC (9.30-11.50)
[2016-05-26 08:00] VITALS: BP 158/76
[2016-05-26 08:04] LABS: FERRITIN 207 ng/mL (13-150)
[2016-05-26 08:11] LABS: ALANINE AMINOTRANSFERASE 10 U/L (3-33); ALBUMIN/GLOBULIN RATIO 0.5 (1.0-2.7); ANION GAP 15 (5-15); ASPARTATE AMINO TRANSFERASE 17 U/L (5-40); CALCIUM 9.1 mg/dL (8.6-10.2); CARBON DIOXIDE 32 mEQ/L (20-30); CHLORIDE 92 mEQ/L (98-107); CHOLESTEROL 109 mg/dL (< 200); CHOLESTEROL/HDL RATIO 3.3 (3.3-4.4); CREATININE 1.1 mg/dL (0.5-0.9); CRP QUANT 3.3 mg/dL (< 0.5); GLOMERULAR FILTRATION RATE > 60 mL/min (>60); LDL CHOLESTEROL (CALC.) 62 mg/dL (60-99); MAGNESIUM 1.6 mg/dL (1.7-2.5); PHOSPHORUS 2.6 mg/dL (2.5-4.8); POTASSIUM 3.5 mEQ/L (3.4-4.9); SODIUM 139 mEQ/L (135-145); TOTAL PROTEIN 6.8 g/dL (6.6-8.7); URIC ACID 4.6 mg/dL (3.0-7.5)
[2016-05-26] MEDS: Carvedilol 25mg Tab ORAL SCH (08:53)
[2016-05-26] MEDS: Furosemide 40mg tab ORAL SCH ×2 (08:53→17:28)
[2016-05-26] MEDS ORDERED: Lisinopril 20mg tab ORAL SCH ×2 (09:00)
[2016-05-26 12:00] VITALS: BP 140/77
--- NOTE | 2016-05-26 12:24 | General Progress Note ---
Assessment/Plan Problem List: (1) Dizziness ICD Codes: R42 - Dizziness and giddiness SNOMED: 887685861 (2) HTN (hypertension) ICD Codes: I10 - Essential (primary) hypertension SNOMED: 75973063 (3) DM (diabetes mellitus) ICD Codes: E11.9 - Type 2 diabetes mellitus without complications SNOMED: 81602117 (4) Anemia, chronic disease ICD Codes: D63.8 - Anemia in other chronic diseases classified elsewhere; T45.515A - Adverse effect of anticoagulants, initial encounter SNOMED: 862022503, 452202854 (5) Coagulopathy ICD Codes: D68.9 - Coagulation defect, unspecified SNOMED: 82987242 (6) V-tach ICD Codes: I47.2 - Ventricular tachycardia SNOMED: 16159956 (7) Ventricular mural thrombus SNOMED: 34743817 Status: progressing Assessment/Plan foot gangrene s/p bradycardia post endoscopy.dr samaniego was consulted coaguluapthy improving\ dc planning to any facility that is willing to accept her amputation decesion per dr saxena transfer to another facility had long discussion w dr morrow re this pt Subjective ROS Limited/Unobtainable: Yes Constitutional: Reports: no symptoms Allergies: Coded Allergies: NO KNOWN ALLERGIES (Unverified Allergy, Unknown, 03/07/15) Objective Last 24 Hour Vital Signs Date Time Temp Pulse Resp B/P Pulse Ox O2 Delivery O2 Flow Rate FiO2 05/26/16 08:53 158/76 05/26/16 08:53 65 158/76 05/26/16 08:00 97.7 65 20 158/76 98 Room Air 05/26/16 06:15 132/73 05/26/16 03:27 97.6 81 18 132/73 94 Room Air 05/26/16 01:57 98.4 05/26/16 00:00 97.8 76 20 134/74 97 Room Air 05/25/16 21:16 152/85 05/25/16 21:16 84 152/85 05/25/16 20:00 98.4 84 18 152/85 99 Room Air 05/25/16 16:00 97.8 71 22 126/70 95 Room Air Intake and Output 05/25/16 05/26/16 19:00 07:00 Intake Total 480 ml 705.000 ml Output Total 200 ml 1300 ml Balance 280 ml -595.000 ml Intake Oral 480 ml 320 ml IV Total 385.000 ml Output Urine Total 200 ml 1300 ml # Bowel Movements 1 Laboratory Tests 05/25/16 15:00: Urine Color Pale yellow, Urine Appearance Clear, Urine pH 7, Urine Specific [place] 1.005, Urine Protein 2+H, Urine Glucose (UA) Negative, Urine Ketones Negative, Urine Occult Blood 4+H, Urine Nitrite Negative, Urine Bilirubin Negative, Urine Urobilinogen Normal, Urine Leukocyte Esterase 3+H, Urine RBC 10- 15H, Urine WBC 5-10H, Urine Squamous Epithelial Cells Few, Urine Bacteria Few 05/26/16 05:15: White Blood Count 10.9H, Red Blood Count 3.42L, Hemoglobin 8.9L, Hematocrit 29.2L, Mean Corpuscular Volume 86, Mean Corpuscular Hemoglobin 26.2L, Mean Corpuscular Hemoglobin Concent 30.6L, Red Cell Distribution Width 16.4H, Platelet Count 481H, Mean Platelet Volume 6.3L, Neutrophils (%) (Auto) 71.2, Lymphocytes (%) (Auto) 18.0L, Monocytes (%) (Auto) 7.1, Eosinophils (%) (Auto) 1.8, Basophils (%) (Auto) 1.8, Prothrombin Time 20.2H, Prothromb Time International Ratio 1.9H, Sodium Level 139, Potassium Level 3.5, Chloride Level 92L, Carbon Dioxide Level 32H, Anion Gap 15, Blood Urea Nitrogen 15, Creatinine 1.1H, Estimat Glomerular Filtration Rate > 60, Glucose Level 115H, Uric Acid 4.6 , Calcium Level 9.1, Phosphorus Level 2.6, Magnesium Level 1.6L, Iron Level 32L , Total Iron Binding Capacity 223L, Percent Iron Saturation 14L, Unsaturated Iron Binding 191, Ferritin 207H, Total Bilirubin 0.9, Gamma Glutamyl Transpeptidase 38H, Aspartate Amino Transf (AST/SGOT) 17, Alanine Aminotransferase (ALT/SGPT) 10, Alkaline Phosphatase 76, C-Reactive Protein, Quantitative 3.3H, Pro-B-Type Natriuretic Peptide 9540H, Total Protein 6.8, Albumin 2.5L, Globulin 4.3, Albumin/Globulin Ratio 0.5L, Triglycerides Level 71 , Cholesterol Level 109, LDL Cholesterol 62, HDL Cholesterol 33, Cholesterol/ HDL Ratio 3.3, Vitamin B12 Level > 2000H Height (Feet): 5 Height (Inches): 7.00 Weight (Pounds): 232 Neck: supple Cardiovascular: normal rate Respiratory/Chest: lungs clear Abdomen: soft Brittny Campos MD May 26, 2016 12:23
[2016-05-26] MEDS ORDERED: Iron Sucrose 200 MG in NS 110 ML IVPB ONE (13:00)
--- NOTE | 2016-05-26 13:05 | General Progress Note ---
Assessment/Plan Status: stable - from renal stand Assessment/Plan Conditions: HypoKalemia- resolved HypoAlbuminemia UA Proteinuria and UTI EjFx 45% Diabetic Nephropathy other: 1) Coagulopathy (2) Diabetic foot ulcer (3) Ventricular mural thrombus (4) HTN (hypertension) (5) DM (diabetes mellitus) (6) Anemia, chronic disease Plan: Per consultants- K po Ua adjust BP meds- per orders Subjective ROS Limited/Unobtainable: No Constitutional: Reports: malaise Allergies: Coded Allergies: NO KNOWN ALLERGIES (Unverified Allergy, Unknown, 03/07/15) Objective Last 24 Hour Vital Signs Date Time Temp Pulse Resp B/P Pulse Ox O2 Delivery O2 Flow Rate FiO2 05/26/16 12:00 98.2 22 140/77 99 Room Air 05/26/16 08:53 158/76 05/26/16 08:53 65 158/76 05/26/16 08:00 97.7 65 20 158/76 98 Room Air 05/26/16 06:15 132/73 05/26/16 03:27 97.6 81 18 132/73 94 Room Air 05/26/16 01:57 98.4 05/26/16 00:00 97.8 76 20 134/74 97 Room Air 05/25/16 21:16 152/85 05/25/16 21:16 84 152/85 05/25/16 20:00 98.4 84 18 152/85 99 Room Air 05/25/16 16:00 97.8 71 22 126/70 95 Room Air Intake and Output 05/25/16 05/26/16 19:00 07:00 Intake Total 480 ml 705.000 ml Output Total 200 ml 1300 ml Balance 280 ml -595.000 ml Intake Oral 480 ml 320 ml IV Total 385.000 ml Output Urine Total 200 ml 1300 ml # Bowel Movements 1 Laboratory Tests 05/25/16 15:00: Urine Color Pale yellow, Urine Appearance Clear, Urine pH 7, Urine Specific [place] 1.005, Urine Protein 2+H, Urine Glucose (UA) Negative, Urine Ketones Negative, Urine Occult Blood 4+H, Urine Nitrite Negative, Urine Bilirubin Negative, Urine Urobilinogen Normal, Urine Leukocyte Esterase 3+H, Urine RBC 10- 15H, Urine WBC 5-10H, Urine Squamous Epithelial Cells Few, Urine Bacteria Few 05/26/16 05:15: White Blood Count 10.9H, Red Blood Count 3.42L, Hemoglobin 8.9L, Hematocrit 29.2L, Mean Corpuscular Volume 86, Mean Corpuscular Hemoglobin 26.2L, Mean Corpuscular Hemoglobin Concent 30.6L, Red Cell Distribution Width 16.4H, Platelet Count 481H, Mean Platelet Volume 6.3L, Neutrophils (%) (Auto) 71.2, Lymphocytes (%) (Auto) 18.0L, Monocytes (%) (Auto) 7.1, Eosinophils (%) (Auto) 1.8, Basophils (%) (Auto) 1.8, Prothrombin Time 20.2H, Prothromb Time International Ratio 1.9H, Sodium Level 139, Potassium Level 3.5, Chloride Level 92L, Carbon Dioxide Level 32H, Anion Gap 15, Blood Urea Nitrogen 15, Creatinine 1.1H, Estimat Glomerular Filtration Rate > 60, Glucose Level 115H, Uric Acid 4.6 , Calcium Level 9.1, Phosphorus Level 2.6, Magnesium Level 1.6L, Iron Level 32L , Total Iron Binding Capacity 223L, Percent Iron Saturation 14L, Unsaturated Iron Binding 191, Ferritin 207H, Total Bilirubin 0.9, Gamma Glutamyl Transpeptidase 38H, Aspartate Amino Transf (AST/SGOT) 17, Alanine Aminotransferase (ALT/SGPT) 10, Alkaline Phosphatase 76, C-Reactive Protein, Quantitative 3.3H, Pro-B-Type Natriuretic Peptide 9540H, Total Protein 6.8, Albumin 2.5L, Globulin 4.3, Albumin/Globulin Ratio 0.5L, Triglycerides Level 71 , Cholesterol Level 109, LDL Cholesterol 62, HDL Cholesterol 33, Cholesterol/ HDL Ratio 3.3, Vitamin B12 Level > 2000H Height (Feet): 5 Height (Inches): 7.00 Weight (Pounds): 232 General Appearance: no apparent distress Objective Physical exam not changed ROGER VILLALTA May 26, 2016 13:05
[2016-05-26] MEDS: Magnesium Oxide 400mg tab ORAL SCH ×2 (14:34→17:28)
[2016-05-26 16:00] VITALS: BP 99/55
[2016-05-26] MEDS ORDERED: Vitamin B12 1000mcg/ml Inj SUBQ SCH (16:30)
--- NOTE | 2016-05-26 16:47 | Infectious Diseases Prog Note ---
Assessment/Plan Problems: (1) Toe gangrene Assessment & Plan: with wound culture growing multiple organisms all sensitive to Zosyn, but MRI is negative for osteomyelitis, and blood culture ruled out bacteremia . continue vancomycin, and zosyn to cover for ESBL producing E coli , recommend amputation of the big toe to eliminate the source of infection , she needs vascular clearance before amputation. recommend 4-6 weeks of vancomycin and zosyn therapy after amputation is done. (2) Open wound of both legs with complication Assessment & Plan: continue local wound care as per wound care service, and off loading , continue wide spectrum antibiotics (3) Sepsis Assessment & Plan: due to the above, continue vancomycin, and zosyn until amputation is done , blood culture is negative (4) Coagulopathy Assessment & Plan: due to comuadin, improving, monitor INR (5) DM (diabetes mellitus) Assessment & Plan: recommend tight glycemic control to keep blood glucose between 80-120 Subjective Constitutional: Denies: anorexia, chills, drenching sweats, fatigue, fever, no symptoms, other HEENT: Denies: congestion, coryza, dysphagia, hearing change, no symptoms, other, visual change Respiratory: Denies: dry cough, no symptoms, other, productive cough, shortness of breath Breasts: Denies: discharge, no symptoms, other, swelling, tenderness Cardiovascular: Denies: chest pain, dyspnea on exertion, no symptoms, other, palpitations Gastrointestinal/Abdominal: Denies: bloating, blood in stool, constipation, diarrhea, nausea, no symptoms, other, vomiting Genitourinary: Denies: dysuria, frequency, hematuria, last menstrual period, no symptoms, nocturia, other, vaginal bleed/discharge Neurologic: Denies: confusion, headache, no symptoms, numbness, other, weakness Psychiatric: Denies: anxiety, depression, no symptoms, other Skin: Denies: no symptoms, other, rash, ulcer Endocrine: Denies: feels cold, feels warm, no symptoms, other Allergies: Coded Allergies: NO KNOWN ALLERGIES (Unverified Allergy, Unknown, 03/07/15) Objective Vital Signs Last 24 Hour Vital Signs Date Time Temp Pulse Resp B/P Pulse Ox O2 Delivery O2 Flow Rate FiO2 05/26/16 14:34 140/77 05/26/16 12:00 98.2 22 140/77 99 Room Air 05/26/16 08:53 158/76 05/26/16 08:53 65 158/76 05/26/16 08:00 97.7 65 20 158/76 98 Room Air 05/26/16 06:15 132/73 05/26/16 03:27 97.6 81 18 132/73 94 Room Air 05/26/16 01:57 98.4 05/26/16 00:00 97.8 76 20 134/74 97 Room Air 05/25/16 21:16 152/85 05/25/16 21:16 84 152/85 05/25/16 20:00 98.4 84 18 152/85 99 Room Air Height (Feet): 5 Height (Inches): 7.00 Weight (Pounds): 232 General Appearance: WD/WN, no acute distress HEENT: normocephalic, atraumatic, anicteric, mucous membranes moist Respiratory/Chest: chest wall non-tender, lungs clear, normal breath sounds, no respiratory distress, no accessory muscle use Cardiovascular: normal peripheral pulses, normal rate, regular rhythm, no gallop/murmur Abdomen: normal bowel sounds, soft, non tender, no organomegaly, non distended , no mass Extremities: no cyanosis, no clubbing Skin: no rash, no lesions Laboratory Tests Test 05/26/16 05:15 White Blood Count 10.9 K/UL (4.8-10.8) H Red Blood Count 3.42 M/UL (4.20-5.40) L Hemoglobin 8.9 G/DL (12.0-16.0) L Hematocrit 29.2 % (37.0-47.0) L Mean Corpuscular Volume 86 FL (80-99) Mean Corpuscular Hemoglobin 26.2 PG (27.0-31.0) L Mean Corpuscular Hemoglobin Concent 30.6 G/DL (32.0-36.0) L Red Cell Distribution Width 16.4 % (11.6-14.8) H Platelet Count 481 K/UL (150-450) H Mean Platelet Volume 6.3 FL (6.5-10.1) L Neutrophils (%) (Auto) 71.2 % (45.0-75.0) Lymphocytes (%) (Auto) 18.0 % (20.0-45.0) L Monocytes (%) (Auto) 7.1 % (1.0-10.0) Eosinophils (%) (Auto) 1.8 % (0.0-3.0) Basophils (%) (Auto) 1.8 % (0.0-2.0) Prothrombin Time 20.2 SEC (9.30-11.50) H Prothromb Time International Ratio 1.9 (0.9-1.1) H Sodium Level 139 mEQ/L (135-145) Potassium Level 3.5 mEQ/L (3.4-4.9) Chloride Level 92 mEQ/L (98-107) L Carbon Dioxide Level 32 mEQ/L (20-30) H Anion Gap 15 (5-15) Blood Urea Nitrogen 15 mg/dL (7-23) Creatinine 1.1 mg/dL (0.5-0.9) H Estimat Glomerular Filtration Rate > 60 mL/min (>60) Glucose Level 115 mg/dL (74-106) H Uric Acid 4.6 mg/dL (3.0-7.5) Calcium Level 9.1 mg/dL (8.6-10.2) Phosphorus Level 2.6 mg/dL (2.5-4.8) Magnesium Level 1.6 mg/dL (1.7-2.5) L Iron Level 32 ug/dL (37-145) L Total Iron Binding Capacity 223 ug/dL (250-400) L Percent Iron Saturation 14 % (15-50) L Unsaturated Iron Binding 191 ug/dL (112-346) Ferritin 207 ng/mL (13-150) H Total Bilirubin 0.9 mg/dL (0.0-1.2) Gamma Glutamyl Transpeptidase 38 U/L (5-36) H Aspartate Amino Transf (AST/SGOT) 17 U/L (5-40) Alanine Aminotransferase (ALT/SGPT) 10 U/L (3-33) Alkaline Phosphatase 76 U/L (35-104) C-Reactive Protein, Quantitative 3.3 mg/dL (< 0.5) H Pro-B-Type Natriuretic Peptide 9540 pg/mL (0-125) H Total Protein 6.8 g/dL (6.6-8.7) Albumin 2.5 g/dL (3.5-5.2) L Globulin 4.3 g/dL Albumin/Globulin Ratio 0.5 (1.0-2.7) L Triglycerides Level 71 mg/dL (< 150) Cholesterol Level 109 mg/dL (< 200) LDL Cholesterol 62 mg/dL (60-99) HDL Cholesterol 33 mg/dL (> 60) Cholesterol/HDL Ratio 3.3 (3.3-4.4) Vitamin B12 Level > 2000 pg/mL (211-946) H Current Medications Medications (Trade) Dose Ordered Sig/Anh Route PRN Reason Start Time Stop Time Status Last Admin Dose Admin Acetaminophen (Tylenol) 650 mg Q4H PRN ORAL T>100.5 05/25/16 19:30 06/24/16 19:29 Atorvastatin Calcium (Lipitor) 40 mg BEDTIME ORAL 05/25/16 21:00 06/24/16 20:59 05/25/16 21:17 Carvedilol (Coreg) 25 mg EVERY 12 HOURS ORAL 05/25/16 21:00 06/24/16 20:59 05/26/16 08:53 Collagenase (Santyl) 1 applic DAILY TOPIC 05/26/16 09:00 06/25/16 08:59 Cyanocobalamin (Vitamin B12) 1,000 mcg QPM SUBQ 05/26/16 16:30 05/27/16 16:31 Dextrose (Dextrose 50%) STAT PRN IV Hypoglycemia 05/25/16 20:00 06/24/16 19:59 Folic Acid (Folate) 3 mg DAILY ORAL 05/26/16 09:00 06/25/16 08:59 05/26/16 08:52 Furosemide (Lasix) 40 mg TWICE A DAY ORAL 05/26/16 09:00 06/25/16 08:59 05/26/16 08:53 Hydralazine HCl (Apresoline) 25 mg Q8HR ORAL 05/25/16 22:00 06/24/16 21:59 05/26/16 14:34 Insulin Aspart (NovoLOG) BEFORE MEALS AND HS SUBQ 05/25/16 22:00 06/24/16 21:59 05/26/16 11:37 Lisinopril (Prinivil) 20 mg DAILY ORAL 05/26/16 09:00 06/25/16 08:59 05/26/16 08:53 Lorazepam (Ativan 2mg/ml 1ml) 0.5 mg Q4H PRN IV For Anxiety 3/15/17 20:00 06/01/16 19:59 Magnesium Oxide (Mag-Ox 400mg) 400 mg THREE TIMES A DAY ORAL 05/26/16 13:30 06/25/16 13:29 05/26/16 14:34 Morphine Sulfate (Morphine Sulfate) 1 mg Q4H PRN IVP PAIN 4-10 05/25/16 20:00 06/01/16 19:59 05/26/16 01:27 Ondansetron HCl (Zofran) 4 mg Q6H PRN IVP Nausea & Vomiting 05/25/16 20:00 06/24/16 19:59 Piperacillin Sod/ Tazobactam Sod 3.375 gm/Dextrose 110 ml @ 27.5 mls/hr EVERY 8 HOURS IVPB 05/25/16 22:00 06/02/16 21:59 05/26/16 14:34 Polyethylene Glycol (Miralax) 17 gm HSPRN PRN ORAL Constipation 05/25/16 21:00 06/24/16 20:59 Potassium Chloride (K-Dur) 40 meq DAILY ORAL 05/27/16 09:00 06/26/16 08:59 Vancomycin HCl (Vanco rx to dose) 1 ea DAILY PRN MISC PRN RX PROTOCOL 05/25/16 20:00 06/24/16 19:59 Vancomycin HCl/ Dextrose (Vancomycin/D5W) 275 ml @ 183.708 mls/hr Q12HR@0400,1600 IVPB 05/26/16 04:00 05/31/16 03:59 05/26/16 03:46 Warfarin Sodium (Coumadin per pharmacy) 1 ea DAILY PRN MISC Per rx protocol 05/25/16 20:00 06/24/16 19:59 Warfarin Sodium (Coumadin) 5 mg COUMADIN ONCE ORAL 05/26/16 17:00 05/26/16 17:01 Zolpidem Tartrate (Ambien) 5 mg HSPRN PRN ORAL Insomnia 05/25/16 21:00 06/24/16 20:59 Anju Judd M.D. May 26, 2016 16:47
[2016-05-26] MEDS ORDERED: Warfarin Sodium 5mg ORAL ONE (17:00)
[2016-05-26] MEDS ORDERED: Warfarin Sodium 4mg PO SCH (17:00)
[2016-05-26] MEDS ORDERED: B-121000 MCG/1 SQ (19:39)
[2016-05-26] MEDS ORDERED: FOLIC ACID1 MG ORAL (19:40)
[2016-05-26] MEDS ORDERED: HYDRALAZINE HCL25 M1 ORAL (19:40)
[2016-05-26] MEDS ORDERED: NOVOLOG100 UNIT/3 SUBQ (19:40)
[2016-05-26] MEDS ORDERED: MORPHINE 22 MG/1 ML IV (19:41)
[2016-05-26] MEDS ORDERED: ATIVAN0.5 MG IV (19:41)
[2016-05-26] MEDS ORDERED: MAGNESIUM OXID400 M1 ORAL (19:41)
[2016-05-26] MEDS ORDERED: ZOFRAN 4 MG4 MG/2 ML IV (19:42)
[2016-05-26] MEDS ORDERED: AMBIEN5 MG ORAL (19:42)
[2016-05-26] MEDS ORDERED: MIRALAX17 G2 ORAL (19:42)
[2016-05-26] MEDS ORDERED: WARFARIN SODIUM1 MG ORAL (19:43)
[2016-05-26] MEDS ORDERED: VANCOMYCIN1 GM/2502 IVPB (19:50)
--- NOTE | 2016-05-26 20:09 | Podiatric Progress Note ---
Assessment/Plan Patient Orin Longoria is a 66 year old female who was admitted on May 17, 2016 at 05: 50 with increased INR Problems: (1) Toe gangrene (2) Diabetic foot ulcer (3) Bilateral leg ulcer (4) Diabetic peripheral neuropathy (5) Peripheral vascular disease Assessment/Plan - Patient to be transferred to [facility] [place] for angiogram and possible vascular intervention. Will continue to follow the patient while there - Continue daily dressing changes - Will proceed with surgical intervention once cleared by cardiology and vascular surgeon - Non weight bearing on right forefoot. Okay to walk on heel Subjective Reason for consult Bilateral lower extremity wounds and right hallux gangrene Allergies: Coded Allergies: NO KNOWN ALLERGIES (Unverified Allergy, Unknown, 03/07/15) Subjective Patient states she does not have any pain in her lower extremities. No nausea, vomiting, fevers, or chills. Patient has been informed of transfer to another hospital and is agreeable. Objective Exam Last 24 Hour Vital Signs Date Time Temp Pulse Resp B/P Pulse Ox O2 Delivery O2 Flow Rate FiO2 05/26/16 16:00 96.3 69 20 99/55 100 Room Air 05/26/16 14:34 140/77 05/26/16 12:00 98.2 22 140/77 99 Room Air 05/26/16 08:53 158/76 05/26/16 08:53 65 158/76 05/26/16 08:00 97.7 65 20 158/76 98 Room Air 05/26/16 06:15 132/73 05/26/16 03:27 97.6 81 18 132/73 94 Room Air 05/26/16 01:57 98.4 05/26/16 00:00 97.8 76 20 134/74 97 Room Air 05/25/16 21:16 152/85 05/25/16 21:16 84 152/85 05/25/16 20:00 98.4 84 18 152/85 99 Room Air Laboratory Tests Test 05/26/16 05:15 White Blood Count 10.9 K/UL (4.8-10.8) H Red Blood Count 3.42 M/UL (4.20-5.40) L Hemoglobin 8.9 G/DL (12.0-16.0) L Hematocrit 29.2 % (37.0-47.0) L Mean Corpuscular Volume 86 FL (80-99) Mean Corpuscular Hemoglobin 26.2 PG (27.0-31.0) L Mean Corpuscular Hemoglobin Concent 30.6 G/DL (32.0-36.0) L Red Cell Distribution Width 16.4 % (11.6-14.8) H Platelet Count 481 K/UL (150-450) H Mean Platelet Volume 6.3 FL (6.5-10.1) L Neutrophils (%) (Auto) 71.2 % (45.0-75.0) Lymphocytes (%) (Auto) 18.0 % (20.0-45.0) L Monocytes (%) (Auto) 7.1 % (1.0-10.0) Eosinophils (%) (Auto) 1.8 % (0.0-3.0) Basophils (%) (Auto) 1.8 % (0.0-2.0) Prothrombin Time 20.2 SEC (9.30-11.50) H Prothromb Time International Ratio 1.9 (0.9-1.1) H Sodium Level 139 mEQ/L (135-145) Potassium Level 3.5 mEQ/L (3.4-4.9) Chloride Level 92 mEQ/L (98-107) L Carbon Dioxide Level 32 mEQ/L (20-30) H Anion Gap 15 (5-15) Blood Urea Nitrogen 15 mg/dL (7-23) Creatinine 1.1 mg/dL (0.5-0.9) H Estimat Glomerular Filtration Rate > 60 mL/min (>60) Glucose Level 115 mg/dL (74-106) H Uric Acid 4.6 mg/dL (3.0-7.5) Calcium Level 9.1 mg/dL (8.6-10.2) Phosphorus Level 2.6 mg/dL (2.5-4.8) Magnesium Level 1.6 mg/dL (1.7-2.5) L Iron Level 32 ug/dL (37-145) L Total Iron Binding Capacity 223 ug/dL (250-400) L Percent Iron Saturation 14 % (15-50) L Unsaturated Iron Binding 191 ug/dL (112-346) Ferritin 207 ng/mL (13-150) H Total Bilirubin 0.9 mg/dL (0.0-1.2) Gamma Glutamyl Transpeptidase 38 U/L (5-36) H Aspartate Amino Transf (AST/SGOT) 17 U/L (5-40) Alanine Aminotransferase (ALT/SGPT) 10 U/L (3-33) Alkaline Phosphatase 76 U/L (35-104) C-Reactive Protein, Quantitative 3.3 mg/dL (< 0.5) H Pro-B-Type Natriuretic Peptide 9540 pg/mL (0-125) H Total Protein 6.8 g/dL (6.6-8.7) Albumin 2.5 g/dL (3.5-5.2) L Globulin 4.3 g/dL Albumin/Globulin Ratio 0.5 (1.0-2.7) L Triglycerides Level 71 mg/dL (< 150) Cholesterol Level 109 mg/dL (< 200) LDL Cholesterol 62 mg/dL (60-99) HDL Cholesterol 33 mg/dL (> 60) Cholesterol/HDL Ratio 3.3 (3.3-4.4) Vitamin B12 Level > 2000 pg/mL (211-946) H Microbiology Date/Time Source Procedure Growth Status 05/18/16 19:30 Blood Blood Culture - Final NO GROWTH AFTER 5 DAYS Complete 05/17/16 07:48 Nasal Nares MRSA Culture - Final NO METHICILLIN RESISTANT STAPH AUREUS... Complete 05/19/16 06:00 Foot Right Gram Stain - Final Complete 05/19/16 06:00 Wound Culture - Final Morganella Morg Spp Morganii Klebsiella Oxytoca Diphtheroids Complete Exam Narrative Right hallux with gangrene. Increase in drainage noted today since patient has been sitting with her legs hanging on the side of the bed. Slight malodor present. The area of gangrenous non viable tissue continues to increase in size and has not stabilized yet. Dermatological Wound Assessment : Exudate Amount: Moderate Adán Singh DPM May 26, 2016 20:08
[2016-05-26] MEDS ORDERED: Tubing IV Secondary IV ONE (21:04)
--- NOTE | 2016-05-26 22:46 | Pulmonology Progress Note ---
Assessment/Plan Problems: (1) Coagulopathy (2) Diabetic foot ulcer (3) Ventricular mural thrombus (4) HTN (hypertension) (5) DM (diabetes mellitus) (6) Anemia, chronic disease Assessment/Plan monitor heart rate venous dupplex negative cardio evaluation appreciated f/u h/h, pt/ptt continue antibiotics refusing stress test bradycardia resolved wound care med/surg Subjective Allergies: Coded Allergies: NO KNOWN ALLERGIES (Unverified Allergy, Unknown, 03/07/15) Objective Last 24 Hour Vital Signs Date Time Temp Pulse Resp B/P Pulse Ox O2 Delivery O2 Flow Rate FiO2 05/26/16 16:00 96.3 69 20 99/55 100 Room Air 05/26/16 14:34 140/77 05/26/16 12:00 98.2 22 140/77 99 Room Air 05/26/16 08:53 158/76 05/26/16 08:53 65 158/76 05/26/16 08:00 97.7 65 20 158/76 98 Room Air 05/26/16 06:15 132/73 05/26/16 03:27 97.6 81 18 132/73 94 Room Air 05/26/16 01:57 98.4 05/26/16 00:00 97.8 76 20 134/74 97 Room Air Intake and Output 05/25/16 05/26/16 19:00 07:00 Intake Total 480 ml 705.000 ml Output Total 200 ml 1300 ml Balance 280 ml -595.000 ml Intake Oral 480 ml 320 ml IV Total 385.000 ml Output Urine Total 200 ml 1300 ml # Bowel Movements 1 Objective General Appearance: WD/WN HEENT: normocephalic, atraumatic Respiratory/Chest: chest wall non-tender, crackles/rales Cardiovascular: normal peripheral pulses, normal rate Abdomen: normal bowel sounds, soft, non tender Genitourinary: normal external genitalia Extremities: no cyanosis, no clubbing, ulers and gangrene Skin: no rash, clean dressing on legs 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: 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 grossly normal Laboratory Tests 05/26/16 05:15: White Blood Count 10.9H, Red Blood Count 3.42L, Hemoglobin 8.9L, Hematocrit 29.2L, Mean Corpuscular Volume 86, Mean Corpuscular Hemoglobin 26.2L, Mean Corpuscular Hemoglobin Concent 30.6L, Red Cell Distribution Width 16.4H, Platelet Count 481H, Mean Platelet Volume 6.3L, Neutrophils (%) (Auto) 71.2, Lymphocytes (%) (Auto) 18.0L, Monocytes (%) (Auto) 7.1, Eosinophils (%) (Auto) 1.8, Basophils (%) (Auto) 1.8, Prothrombin Time 20.2H, Prothromb Time International Ratio 1.9H, Sodium Level 139, Potassium Level 3.5, Chloride Level 92L, Carbon Dioxide Level 32H, Anion Gap 15, Blood Urea Nitrogen 15, Creatinine 1.1H, Estimat Glomerular Filtration Rate > 60, Glucose Level 115H, Uric Acid 4.6 , Calcium Level 9.1, Phosphorus Level 2.6, Magnesium Level 1.6L, Iron Level 32L , Total Iron Binding Capacity 223L, Percent Iron Saturation 14L, Unsaturated Iron Binding 191, Ferritin 207H, Total Bilirubin 0.9, Gamma Glutamyl Transpeptidase 38H, Aspartate Amino Transf (AST/SGOT) 17, Alanine Aminotransferase (ALT/SGPT) 10, Alkaline Phosphatase 76, C-Reactive Protein, Quantitative 3.3H, Pro-B-Type Natriuretic Peptide 9540H, Total Protein 6.8, Albumin 2.5L, Globulin 4.3, Albumin/Globulin Ratio 0.5L, Triglycerides Level 71 , Cholesterol Level 109, LDL Cholesterol 62, HDL Cholesterol 33, Cholesterol/ HDL Ratio 3.3, Vitamin B12 Level > 2000H AMARIS POWERS May 26, 2016 22:46
--- NOTE | 2016-05-26 23:16 | General Progress Note ---
Assessment/Plan Assessment/Plan Assessment - gastritis, colon polyp - anemia - stable - functional decline - HTN - DM - toe gangrene Recommendations - push po - abx - wound care - follow labs Subjective Allergies: Coded Allergies: NO KNOWN ALLERGIES (Unverified Allergy, Unknown, 03/07/15) Subjective more awake no abd complaints better po intake Objective Last 24 Hour Vital Signs Date Time Temp Pulse Resp B/P Pulse Ox O2 Delivery O2 Flow Rate FiO2 05/26/16 16:00 96.3 69 20 99/55 100 Room Air 05/26/16 14:34 140/77 05/26/16 12:00 98.2 22 140/77 99 Room Air 05/26/16 08:53 158/76 05/26/16 08:53 65 158/76 05/26/16 08:00 97.7 65 20 158/76 98 Room Air 05/26/16 06:15 132/73 05/26/16 03:27 97.6 81 18 132/73 94 Room Air 05/26/16 01:57 98.4 05/26/16 00:00 97.8 76 20 134/74 97 Room Air Intake and Output 05/25/16 05/26/16 19:00 07:00 Intake Total 480 ml 705.000 ml Output Total 200 ml 1300 ml Balance 280 ml -595.000 ml Intake Oral 480 ml 320 ml IV Total 385.000 ml Output Urine Total 200 ml 1300 ml # Bowel Movements 1 Laboratory Tests 05/26/16 05:15: White Blood Count 10.9H, Red Blood Count 3.42L, Hemoglobin 8.9L, Hematocrit 29.2L, Mean Corpuscular Volume 86, Mean Corpuscular Hemoglobin 26.2L, Mean Corpuscular Hemoglobin Concent 30.6L, Red Cell Distribution Width 16.4H, Platelet Count 481H, Mean Platelet Volume 6.3L, Neutrophils (%) (Auto) 71.2, Lymphocytes (%) (Auto) 18.0L, Monocytes (%) (Auto) 7.1, Eosinophils (%) (Auto) 1.8, Basophils (%) (Auto) 1.8, Prothrombin Time 20.2H, Prothromb Time International Ratio 1.9H, Sodium Level 139, Potassium Level 3.5, Chloride Level 92L, Carbon Dioxide Level 32H, Anion Gap 15, Blood Urea Nitrogen 15, Creatinine 1.1H, Estimat Glomerular Filtration Rate > 60, Glucose Level 115H, Uric Acid 4.6 , Calcium Level 9.1, Phosphorus Level 2.6, Magnesium Level 1.6L, Iron Level 32L , Total Iron Binding Capacity 223L, Percent Iron Saturation 14L, Unsaturated Iron Binding 191, Ferritin 207H, Total Bilirubin 0.9, Gamma Glutamyl Transpeptidase 38H, Aspartate Amino Transf (AST/SGOT) 17, Alanine Aminotransferase (ALT/SGPT) 10, Alkaline Phosphatase 76, C-Reactive Protein, Quantitative 3.3H, Pro-B-Type Natriuretic Peptide 9540H, Total Protein 6.8, Albumin 2.5L, Globulin 4.3, Albumin/Globulin Ratio 0.5L, Triglycerides Level 71 , Cholesterol Level 109, LDL Cholesterol 62, HDL Cholesterol 33, Cholesterol/ HDL Ratio 3.3, Vitamin B12 Level > 2000H Height (Feet): 5 Height (Inches): 7.00 Weight (Pounds): 232 Objective WDWN NCAT supple CTA RRR Soft ND NT (+) LE SHRUTI Veliz May 26, 2016 23:16
--- NOTE | 2016-05-27 17:46 | Discharge Summary ---
Discharge Summary Hospital Course Date of Admission May 17, 2016 at 05:50 Date of Discharge May 26, 2016 at 21:05 Admitting Diagnosis ELEVATED INR HPI Orin Longoria is a 66 year old female who was admitted on May 17, 2016 at 05: 50 for Elevated Inr Hospital Course [id number] Discharge Discharge Disposition Patient was discharged to Acute Care Facility(02) Discharge Diagnoses: Brandie Hill NP May 27, 2016 17:46
--- NOTE | 2016-05-28 01:28 | Discharge Summary 2 SIG ---
DATE OF ADMISSION: 05/17/2016 DATE OF DISCHARGE: 05/26/2016 CONSULTANTS: 1. Josh Martinez M.D. 2. Toño Rinaldi M.D. 3. Anju Judd M.D. 4. Adán Singh M.D. 5. Moe Lane M.D. 6. Lazarus Jean-Baptiste M.D. 7. Eleonora Koroma M.D. 8. Rey Atkins M.D. BRIEF HOSPITAL COURSE: The patient is a 66-year-old female, who presented to ED due to abnormal laboratories. INR was 12. She has been on Coumadin for intracardiac thrombosis. There was no active bleed and was given vitamin K. Dr. Jean-Baptiste was consulted. INR was monitored. She came in with bilateral right lower extremity wounds with infected diabetic foot ulcer on the right hallux that probes to bone. She was seen by a vascular surgeon. The patient has severe calcific peripheral artery disease right foot with advanced foul-smelling gangrene and necrosis. She was given anticoagulation with IV heparin. She underwent upper and lower gastrointestinal endoscopy with findings of hiatal hernia and proximal gastritis, diverticulosis, and colonic polyps. She had transient bradycardia due to vagal effect of colonoscopy and high dose of Coreg 50 mg b.i.d. There was no recurrence after Coreg was decreased to 25 mg b.i.d. Arterial scan of the leg showed severe stenosis on the left popliteal artery with Doppler tibial artery waveform compatible with severe ischemia. Foot MRI showed no definite abnormality to suggest acute osteomyelitis. No evidence of soft tissue abscess. The patient will eventually need surgery for amputation. Wound culture from toes also showed growth of multiple organisms sensitive to Zosyn. She was given vancomycin and Zosyn to cover for ESBL producing E. coli. Will eventually need 36 weeks of IV antibiotic therapy after amputation is done. The patient will need an angiogram and vascular intervention. She was eventually transferred to [facility]. FINAL DIAGNOSES: 1. Sepsis. 2. Diabetic foot ulcer, present on admission. 3. Severe peripheral arterial disease. 4. Supratherapeutic INR secondary to Coumadin use. 5. Diabetes mellitus. 6. Anemia. 7. Hypokalemia. 8. Hypoalbuminemia 9. Diabetes with diabetic nephropathy. 10. Diabetic peripheral neuropathy. 11. Toe gangrene. 12. Bilateral leg ulcers, present on admission. 13. Sepsis. 14. Anemia of chronic disease. 15. Cardiomyopathy. 16. Beats of non-sustained ventricular tachycardia. 17. Transient bradycardia due to vagal effect. 18. Ventricular mural thrombus. Brittny Campos M.D. I have been assigned to dictate discharge summary on this account and I was not involved in the patient's management. Brandie Hill N.P. DR: KRYSTAL JOB#: [id number] CC: NIYAH
--- NOTE | 2016-06-08 19:09 | Consultation ---
DATE OF CONSULTATION: 05/18/2016 NOTE: VERY POOR AUDIO QUALITY: VASCULAR SURGERY CONSULTATION CONSULTING PHYSICIAN: Rey Atkins M.D. REFERRING PHYSICIAN: Franco Chun D.P.M and Brittny Campos M.D. REASON FOR EVALUATION: Right foot gangrene. HISTORY OF PRESENT ILLNESS: This is a 66-year-old morbidly obese female who suffers from multiple medical morbidities. The patient was found to have extensive right foot gangrene. Vascular Surgery is consulted for further evaluation. The patient is confused and delirious now. All the history is obtained from the medical record. PAST MEDICAL HISTORY: As above. History of obesity; congestive heart failure; hypertension; arrhythmia, on Coumadin; insulin-dependent diabetes mellitus; chronic anemia; Calcific arterial occlusive disease MEDICATIONS: See attached MAR. ALLERGIES: No known drug allergies. SOCIAL HISTORY: Unobtainable. FAMILY HISTORY: Unobtainable. SYSTEMS REVIEW: Unobtainable due to altered mental status. PHYSICAL EXAMINATION: Confused but awake VITAL SIGNS: Heart rate 64, blood pressure is 130/70, respirations 12, and saturation is 100% on room air CVS RRR LUNGS: Bilateral rhonchi ABDOMEN: Soft and nontender. EXTREMITIES: She has palpable femoral pulses, absent popliteal pulses and absent tibial pulses bilaterally. She has extensive right foot foul-smelling necrosis and gangrene with extension to below the ankle. The pedal pulses are absent. The popliteal pulses are absent. LABORATORY DATA: WBC is 12 hemoglobin 8.7, and platelet count 318,000. BUN 7 and creatinine 0.7. AST 22 and ALT 16. INR is 2.2. IMPRESSION: 1. Severe calcific occlusive arterial disease and right foot foul-smelling gangrene and necrosis. 2. Multiple risk factors with congestive heart failure. 3. Obesity. 4. Hypertension. 5. Arrhythmia, on Coumadin. 6. Insulin-dependent diabetes mellitus. 7. Anemia. PLAN AND RECOMMENDATION: 1. Continue antibiotics per for Infectious Disease service and will order lower extremity duplex. 2. The patient will need right foot open amputation with podiatry service 3. If right ankle and foot is salvageable, then will schedule for angiography to assess the revascularization. 4. Medical optimization cards eval 5. Continue anticoagulation with intravenous heparin. The patient is a very high risk patient. Above was discussed at length with PMD and podiatry and RN at bedside. Rey Atkins M.D. DR: YAMEL JOB#: [id number] CC: NIYAH
== END 2016-05-26 21:05 | disposition short-term general hospital (02) | DRG 720 ==
LOC: EDBD 03:02 → EMR 03:14 → 4W 05:50 → EDBEDREQ 05:51 → 2E 05-20 09:40 → 4W 05-25 19:31
PROC: 0DBE8ZZ Excision of Large Intestine, Via Natural or Artificial Opening Endoscopic (ICD-10-PCS; principal; 2016-05-20 07:15)
PROC: 0DB68ZX Excision of Stomach, Via Natural or Artificial Opening Endoscopic, Diagnostic (ICD-10-PCS; 2016-05-20 07:15)
DX: A41.9 Sepsis, unspecified organism (principal); I47.2 Ventricular tachycardia; I96 Gangrene, not elsewhere classified; I42.9 Cardiomyopathy, unspecified; E11.21 Type 2 diabetes mellitus with diabetic nephropathy; I50.9 Heart failure, unspecified; E11.42 Type 2 diabetes mellitus with diabetic polyneuropathy; E88.09 Other disorders of plasma-protein metabolism, not elsewhere classified; E11.621 Type 2 diabetes mellitus with foot ulcer; I51.3 Intracardiac thrombosis, not elsewhere classified; I10 Essential (primary) hypertension; K44.9 Diaphragmatic hernia without obstruction or gangrene; K63.5 Polyp of colon; Z79.4 Long term (current) use of insulin; Z79.01 Long term (current) use of anticoagulants; I73.9 Peripheral vascular disease, unspecified; E87.6 Hypokalemia; D63.8 Anemia in other chronic diseases classified elsewhere; R00.1 Bradycardia, unspecified; R79.1 Abnormal coagulation profile; E78.00 Pure hypercholesterolemia, unspecified; K57.90 Diverticulosis of intestine, part unspecified, without perforation or abscess without bleeding; L97.929 Non-pressure chronic ulcer of unspecified part of left lower leg with unspecified severity; L97.919 Non-pressure chronic ulcer of unspecified part of right lower leg with unspecified severity; R42 Dizziness and giddiness; K29.70 Gastritis, unspecified, without bleeding
CPT/HCPCS: 36415; 71010; 80048; 80053; 80061; 80202; 81001; 82248; 82378; 82607; 82728; 82746; 82962; 82977; 83540; 83550; 83615; 83735; 83880; 84100; 84439; 84443; 84484; 84550; 85007; 85025; 85044; 85060; 85610; 85651; 85730; 86140; 87040; 87070; 87081; 87181; 87205; 93306; 93925; 93970; 94003; 94150; A4246; J1815; J8499